=== PATIENT | female | born 1930 | race Caucasian/White ===

== ENCOUNTER 2016-06-12 04:56 | Inpatient (IN) | payer MEDICARE, OTHER ==
[2016-06-12] VITALS (9 sets, daily range): BP systolic 82–126; BP diastolic 50–71; PULSE 77–100; RESP 15–30; TEMP 96.4–103.1; O2SAT 93–98
[~2016-06-12] VITALS: Ht 162.6 cm; Wt 61.6 kg
[~2016-06-12 04:56] MED LIST: AMLO2.5T PO; CALC600T10; FURO1TAB93 PO; KCL10C PO; LEVO.125 PO; LEXA20TA PO; NUED20CA; PRIN10TA PO; STOO100C OR; TRIL300T PO
[2016-06-12] MEDS ORDERED: SODIUM CHLORIDE 0.9% FLUSH 10 ML FLUSH IVF PRN (05:30)
[2016-06-12 05:53] LABS: AUTOMATED NEUTROPHIL # 23.9 TH/MM3 (1.8-7.7); BASOPHIL % 0.1 % (0.0-2.0); HEMATOCRIT 42.6 % (35.0-46.0); LYMPH % 1.9 % (9.0-44.0); LYMPHOCYTE # 0.5 TH/MM3 (1.0-4.8); MEAN CELL VOLUME 94.9 FL (80.0-100.0); MEAN CORPUSCULAR HEMOGLOBIN 32.5 PG (27.0-34.0); MEAN CORPUSCULAR HGB CONC 34.2 % (32.0-36.0); MONO % 4.9 % (0.0-8.0); NEUT % 93.1 % (16.0-70.0); PLATELET COUNT 231 TH/MM3 (150-450); RED BLOOD COUNT 4.49 MIL/MM3 (4.00-5.30); RED CELL DISTRIBUTION WIDTH 14.2 % (11.6-17.2); WHITE BLOOD COUNT 25.7 TH/MM3 (4.0-11.0)
--- NOTE | 2016-06-12 06:01 | RADRPT ---
EXAM DATE/TIME: 06/12/2016 05:25 [place] COMPARISON: CHEST SINGLE AP, March 31, 2013, 16:12. INDICATIONS : Shortness of breath. MEDICAL HISTORY : Unobtainable. SURGICAL HISTORY : Unobtainable. ENCOUNTER: Initial ACUITY: 1 day PAIN SCORE: Non-responsive. LOCATION: Bilateral chest FINDINGS: Rotated and underinflated AP view of the chest demonstrates a normal-sized cardiac silhouette. The pa tient's chin obscures the left lung apex. No effusion, consolidation, or pneumothorax is visualized. Bones demonstrate no acute finding. CONCLUSION: Underinflated and rotated examination without an acute finding appreciated. Flavio Boyd MD on June 12, 2016 at 5:59 Board Certified Radiologist. This report was verified electronically.
[2016-06-12 06:02] LABS: HEMO FLAGS AUTO DIFF
[2016-06-12] MEDS ORDERED: ACET1CAP18 PO (06:05)
[2016-06-12] MEDS ORDERED: HYDR1CRE28 RECTAL (06:05)
[2016-06-12] MEDS ORDERED: COLA100C3 PO (06:05)
[2016-06-12] MEDS ORDERED: FLEEENE3 RECTAL (06:05)
[2016-06-12] MEDS ORDERED: MILKSUS PO (06:05)
[2016-06-12] MEDS ORDERED: ZOFR4TAB PO (06:05)
[2016-06-12] MEDS ORDERED: DULC10SU3 RECTAL (06:05)
[2016-06-12] MEDS ORDERED: CALCTAB19 PO (06:05)
[2016-06-12] MEDS ORDERED: PROM1SUP7 RECTAL (06:05)
[2016-06-12] MEDS ORDERED: AMMO12LO TOPICAL (06:05)
[2016-06-12] MEDS ORDERED: SERO25TA PO (06:05)
[2016-06-12] MEDS ORDERED: PRED20 PO (06:05)
[2016-06-12] MEDS ORDERED: ALBU0.08 NEB (06:05)
[2016-06-12] MEDS ORDERED: ONDA4SOL PO (06:05)
[2016-06-12] MEDS ORDERED: MULTTAB67 PO (06:05)
[2016-06-12] MEDS ORDERED: LEVO100T5 PO (06:05)
[2016-06-12] MEDS ORDERED: OXCA300T PO (06:05)
[2016-06-12 06:10] LABS: BACTERIA, URINE OCC /hpf; BLOOD, URINE MOD (NEG); COMMENT (UR) CATH-CULTURE IND; CULTURE IF INDICATED CATH CULTURE IND; GLUCOSE,URINE NEG (NEG); GRANULAR CAST, URINE 3 /lpf; HYALINE CAST, URINE 4 /lpf (RARE); KETONE, URINE NEG (NEG); MUCUS URINE FEW /lpf (OCC); PH, URINE 6.5 (5.0-8.5); RENAL EPITHELIAL CELLS <1 /hpf; SQUAMOUS EPITHELIAL CELL URINE 1 /hpf (0-5); TRANSITIONAL EPI CELLS, URINE <1 /hpf; URINE COLOR YELLOW (YELLW/STRAW)
[2016-06-12 06:10] LABS: POTASSIUM 3.6 MEQ/L (3.5-5.1)
[2016-06-12 06:12] LABS: NITRITE,URINE POS (NEG)
[2016-06-12] MEDS ORDERED: cefTRIAXone INJ 1,000 MG in SODIUM CHLORIDE 0.9% INJ 100 ML IV ONE (06:30)
[2016-06-12] MEDS ORDERED: ONDANSETRON HCL 4 MG/2 ML VIAL IVP PRN (06:45)
[2016-06-12] MEDS ORDERED: SODIUM CHLORIDE 0.9% FLUSH 10 ML FLUSH IV FLUSH PRN (06:45)
[2016-06-12] MEDS ORDERED: ACETAMINOPHEN 325 MG TAB PO PRN ×2 (06:45→07:45)
[2016-06-12] MEDS ORDERED: SENNOSIDES 8.6 MG TAB PO PRN (06:45)
[2016-06-12] MEDS ORDERED: BISACODYL 10 MG SUPP RECTAL PRN ×2 (06:45→07:45)
[2016-06-12] MEDS ORDERED: NALOXONE HCL 0.4 MG/ML AMP IV PRN (06:45)
[2016-06-12 06:47] LABS: BANDS 10 % (0-6); NEUTROPHIL # MANUAL DIFF 23.9 TH/MM3 (1.8-7.7); PLATELET ESTIMATE SMEAR NORMAL (NORMAL); PLATELET MORPHOLOGY NORMAL (NORMAL); POLYS (SEG NEUTROPHILS) 83 % (16-70); SCAN/DIFF FINAL DIFF MANUAL; WBC DIFF SAMPLE 100
[2016-06-12] MEDS: SODIUM CHLOR 0.9% 1000 ML INJ 1,000 ML IV SCH ×3 (06:49→21:27)
--- NOTE | 2016-06-12 06:50 | PD ---
HPI Chief Complaint: Altered Mental Status Time Seen by Provider: 05:21 Travel History International Travel<30 days: No Contact w/Intl Traveler<30days: No Traveled to known affect area: No History of Present Illness HPI 85-year-old male arrives by EMS. She was difficult to arouse this morning. 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 She then has a morning nap. Lately she is much less active than normal. The daughter states it is been this way for about a week or more. The patient offers no specific complaints and sleeps throughout the interview and examination. There is no suspicion of nonaccidental trauma or accidental trauma. Pt recently started on Gabapentin and daughter questions if it may have induced AMS. PFSH Past Medical History Alzheimer's Disease: Yes Arthritis: Yes Asthma: No Autoimmune Disease: No Blood Disorders: Yes Anxiety: Yes Depression: Yes Heart Rhythm Problems: No Cancer: No Cardiovascular Problems: Yes High Cholesterol: Yes Chemotherapy: No Chest Pain: No Congestive Heart Failure: No COPD: No Cerebrovascular Accident: No Dementia: Yes Diabetes: No Diminished Hearing: No Endocrine: Yes GERD: No Glaucoma: No Genitourinary: Yes (bun creat elevated) Headaches: No Hepatitis: No Hiatal Hernia: No Hypertension: Yes Immune Disorder: No Kidney Stones: No Musculoskeletal: Yes Neurologic: Yes (dementia) Psychiatric: Yes Reproductive: No Respiratory: No Migraines: No Myocardial Infarction: No Radiation Therapy: No Renal Failure: No Seizures: Yes Sickle Cell Disease: No Sleep Apnea: No Thyroid Disease: Yes (HYPOTHYROID) Ulcer: No Influenza Vaccination: Yes PNEUMOCCOCAL Vaccine (Year): 2 Menopausal: Yes Past Surgical History Abdominal Surgery: Yes (APPENDECTOMY) AICD: No Appendectomy: Yes Arteriovenous Shunt: No Cardiac Surgery: Yes (CARDIAC CATH X2) Cholecystectomy: No Ear Surgery: No Endocrine Surgery: Yes (THYROIDECTOMY) Eye Surgery: No Genitourinary Surgery: No Gynecologic Surgery: Yes (HYSTERECTOMY) Hysterectomy: Yes Insulin Pump: No Joint Replacement: Yes (LEFT HIP REPLACEMENT) Oral Surgery: No Pacemaker: No Thoracic Surgery: No Other Surgery: Yes (emilie hip repair thyoidectomy,hemmorroidectomy hysterectomy vein strippingapp) Social History Alcohol Use: No Tobacco Use: No Substance Use: No Allergies-Medications (Allergen,Severity, Reaction): Coded Allergies: Bethanechol (Verified Allergy, Severe, 06/12/16) Cipro (Verified Allergy, Unknown, 06/12/16) TOLD BY JUST[facility] Reported Meds & Prescriptions Reported Meds & Active Scripts Active Reported Zofran (Ondansetron HCl) 4 Mg Tab 4 Mg PO Q6HR PRN Tylenol (Acetaminophen) 325 Mg Cap 650 Mg PO Q4HR PRN Seroquel (Quetiapine Fumarate) 25 Mg Tab 12.5 Mg PO DAILY Seroquel (Quetiapine Fumarate) 25 Mg Tab 25 Mg PO DAILY Prednisone 20 Mg Tab 20 Mg PO DAILY Phenergan Supp (Promethazine HCl) 25 Mg Supp 25 Mg RECTAL Q6H PRN Oxcarbazepine 300 Mg Tab 300 Mg PO BID Ondansetron Liq (Ondansetron HCl) 4 Mg/5 Ml Soln 4 Mg PO Q6H PRN Multiple Vitamin 1 Tab 1 Tab PO DAILY Milk of Magnesia Liq (Magnesium Hydroxide) 400 Mg/5 Ml Susp 15 Ml PO DAILY PRN Levothyroxine (Levothyroxine Sodium) 100 Mcg Tab 100 Mcg PO DAILY Hydrocortisone Acetate Cream 1% Cream 1 Applic RECTAL DIRECTED Fleet Enema Rectal (Sodium Phosphates Rectal) 7-19 Gm/118 Ml Enem 118 Ml RECTAL DAILY PRN Dulcolax Supp (Bisacodyl) 10 Mg Supp 10 Mg RECTAL DAILY PRN Colace (Docusate Sodium) 100 Mg Cap 100 Mg PO BID PRN Calcium 600+D 200 (Calcium Carbonate-Vitamin D) 600-200 Mg-Unit Tab 1 Tab PO BID Ammonium Lactate (Lactic Acid (Ammonium Lactate)) 12% Lotn 1 Applic TOPICAL BID Albuterol Neb (Albuterol Sulfate) 2.5 Mg/3 Ml Neb 2.5 Mg NEB Q6HR PRN Review of Systems Except as stated in HPI: all other systems reviewed are Neg Physical Exam Narrative GENERAL: 85 yo female somewhat thin no acute distress resting comfortably though difficult to arouse SKIN: Focused skin assessment warm/dry. HEAD: Atraumatic. Normocephalic. EYES: Pupils equal and round. No scleral icterus. No injection or drainage. ENT: No nasal bleeding or discharge. Mucous membranes pink and moist. NECK: Trachea midline. No JVD. CARDIOVASCULAR: Regular rate and rhythm. No murmur appreciated. RESPIRATORY: No accessory muscle use. Clear to auscultation. Breath sounds equal bilaterally. GASTROINTESTINAL: Abdomen soft, non-tender, nondistended. Hepatic and splenic margins not palpable. MUSCULOSKELETAL: No obvious deformities. No clubbing. No cyanosis. No edema. NEUROLOGICAL: Asleep. Somewhat difficult to arouse. Pupils are equal round and reactive. There is grimace in response to noxious stimulus. PSYCHIATRIC: Unable to stay. Data Data Last Documented VS Vital Signs Date Time Temp Pulse Resp B/P Pulse Ox O2 Delivery O2 Flow Rate FiO2 06/12/16 05:53 91 20 107/71 98 Nasal Cannula 2 06/12/16 05:14 98.7 Vital signs reviewed Orders Basic Metabolic Panel (Bmp) (06/12/16 05:21) Complete Blood Count With Diff (06/12/16 05:21) Urinalysis - C+S If Indicated (06/12/16 05:21) Chest, Single Ap (06/12/16 05:21) Blood Glucose (06/12/16 05:21) Ecg Monitoring (06/12/16 05:21) Iv Access Insert/Monitor (06/12/16 05:21) Oximetry (06/12/16 05:21) Sodium Chloride 0.9% Flush (Ns Flush) (06/12/16 05:30) Urine Culture (06/12/16 05:45) Ceftriaxone Inj (Rocephin Inj) (06/12/16 06:30) Admit To Inpatient (06/12/16 ) Vital Signs (Adult) Q4H (06/12/16 06:35) Activity Oob With Assistance (06/12/16 06:35) Diet Heart Healthy (06/12/16 Breakfast) Sodium Chlor 0.9% 1000 Ml Inj (Ns 1000 M (06/12/16 06:35) Sodium Chloride 0.9% Flush (Ns Flush) (06/12/16 06:45) Sodium Chloride 0.9% Flush (Ns Flush) (06/12/16 09:00) Acetaminophen (Tylenol) (06/12/16 06:45) Ondansetron Inj (Zofran Inj) (06/12/16 06:45) Bisacodyl Supp (Dulcolax Supp) (06/12/16 06:45) Sennosides (Senokot) (06/12/16 06:45) Basic Metabolic Panel (Bmp) (06/13/16 06:00) Complete Blood Count With Diff (06/13/16 06:00) Heparin Inj (Heparin Inj) (06/12/16 06:45) Naloxone Inj (Narcan Inj) (06/12/16 06:45) Inpatient Certification (06/12/16 ) Ceftriaxone Inj (Rocephin Inj) (06/13/16 06:00) Admit Order (Ed Use Only) (06/12/16 06:40) Labs Laboratory Tests Test 06/12/16 06/12/16 05:30 05:45 White Blood Count 25.7 TH/MM3 Red Blood Count 4.49 MIL/MM3 Hemoglobin 14.6 GM/DL Hematocrit 42.6 % Mean Corpuscular Volume 94.9 FL Mean Corpuscular Hemoglobin 32.5 PG Mean Corpuscular Hemoglobin 34.2 % Concent Red Cell Distribution Width 14.2 % Platelet Count 231 TH/MM3 Mean Platelet Volume 9.0 FL Neutrophils (%) (Auto) 93.1 % Lymphocytes (%) (Auto) 1.9 % Monocytes (%) (Auto) 4.9 % Eosinophils (%) (Auto) 0.0 % Basophils (%) (Auto) 0.1 % Neutrophils # (Auto) 23.9 TH/MM3 Lymphocytes # (Auto) 0.5 TH/MM3 Monocytes # (Auto) 1.2 TH/MM3 Eosinophils # (Auto) 0.0 TH/MM3 Basophils # (Auto) 0.0 TH/MM3 CBC Comment AUTO DIFF Differential Total Cells 100 Counted Neutrophils % (Manual) 83 % Band Neutrophils % 10 % Lymphocytes % 4 % Monocytes % 3 % Neutrophils # (Manual) 23.9 TH/MM3 Differential Comment FINAL DIFF MANUAL Platelet Estimate NORMAL Platelet Morphology Comment NORMAL Red Cell Morphology Comment NORMAL Sodium Level 145 MEQ/L Potassium Level 3.6 MEQ/L Chloride Level 109 MEQ/L Carbon Dioxide Level 24.0 MEQ/L Anion Gap 12 MEQ/L Blood Urea Nitrogen 33 MG/DL Creatinine 2.27 MG/DL Estimat Glomerular Filtration 20 ML/MIN Rate Random Glucose 193 MG/DL Calcium Level 8.6 MG/DL Urine Color YELLOW Urine Turbidity HAZY Urine pH 6.5 Urine Specific [place] 1.017 Urine Protein 100 mg/dL Urine Glucose (UA) NEG mg/dL Urine Ketones NEG mg/dL Urine Occult Blood MOD Urine Nitrite POS Urine Bilirubin NEG Urine Urobilinogen LESS THAN 2.0 MG/DL Urine Leukocyte Esterase LARGE Urine RBC 16 /hpf Urine WBC 77 /hpf Urine WBC Clumps FEW Urine Squamous Epithelial 1 /hpf Cells Urine Transitional Epithelial <1 /hpf Cells Urine Renal Epithelial Cells <1 /hpf Urine Bacteria OCC /hpf Urine Hyaline Casts 4 /lpf Urine Granular Casts 3 /lpf Urine Mucus FEW /lpf Microscopic Urinalysis Comment CATH-CULTURE IND MDM Medical Decision Making Medical Screen Exam Complete: Yes Emergency Medical Condition: Yes Medical Record Reviewed: Yes Differential Diagnosis DEAN, UTI, anemia, sepsis, PNA Narrative Course CBC & BMP Diagram 06/12/16 05:30 UA: UTI present Patient has remained comfortable throughout ER stay. Patient was mildly tachycardic with a heart rate in the 90s throughout ER stay with vital signs otherwise unremarkable. Rocephin started. VSS in ER. D/w Flavio Hanna. Admit to Dr Braxton. Diagnosis Primary Impression: Sepsis secondary to UTI Additional Impression: Acute renal failure Qualified Code: N17.9 - Acute renal failure, unspecified acute renal failure type Admitting Information Admitting Physician Requests: Admit Jesús Rahman MD Jun 12, 2016 06:50
[2016-06-12] MEDS: HEPARIN SODIUM - SQ 10,000 UNITS/ML VIAL SQ SCH ×2 (06:54→18:41)
[2016-06-12] MEDS ORDERED: DOCUSATE SODIUM 100 MG CAP PO PRN (07:45)
[2016-06-12] MEDS ORDERED: PROMETHAZINE HCL 25 MG SUPP RECTAL PRN (07:45)
[2016-06-12] MEDS ORDERED: SOD PHOSPHATE/SOD BIPHOSPHATE (ADULT) ENEMA 133ML RECTAL PRN (07:45)
[2016-06-12] MEDS ORDERED: HYDROCORTISONE ACETATE 25 MG SUPP RECTAL SCH (07:45)
[2016-06-12] MEDS ORDERED: RESP: ALBUTEROL 2.5 MG/3 ML NEB (PRN) NEB (07:45)
[2016-06-12] MEDS ORDERED: MAGNESIUM HYDROXIDE SUSP 30 ML CUP PO PRN (07:45)
[2016-06-12] MEDS: CALCIUM/VITAMIN D 250 MG/125 U TAB PO SCH ×3 (09:00→21:00)
[2016-06-12] MEDS: LEVOTHYROXINE SODIUM 100 MCG TAB PO SCH ×2 (09:00→12:31)
[2016-06-12] MEDS: QUEtiapine FUMARATE 25 MG TAB PO SCH ×4 (09:00→12:29)
[2016-06-12] MEDS: SODIUM CHLORIDE 0.9% FLUSH 10 ML FLUSH IV FLUSH SCH ×2 (09:00→21:00)
[2016-06-12] MEDS: predniSONE 20 MG TAB PO SCH ×2 (09:00→12:30)
[2016-06-12] MEDS: OXcarbazepine 300 MG TAB PO SCH ×3 (09:00→21:00)
--- NOTE | 2016-06-12 09:17 | MH ---
cc: ISABELVIELKAFILOMENA DATE OF ADMISSION 06/12/2016 DATE OF 1930 CHIEF COMPLAINT Altered mental status TRAVEL IN THE LAST 30 DAYS None HISTORY OF PRESENT ILLNESS This is an 85 year-old white female who was brought in via the emergency room from [facility]. According to the record and her daughter, Zaida Oseguera who is with her, the patient has been less responsive and to the point of some lethargy. In this past week, the patient was treated with some IV fluids at the facility, but according to the daughter, the patient's UA that was checked at the facility was normal. The patient also was treated for a recent right eye infection. Usually according to the daughter, the patient is up in her wheelchair ready to eat breakfast and stays on a fairly active routine. She has been off her activity and usual routine for at least a week or more. The patient is currently lying on a stretcher, eyes are closed. She appears to be sleeping and very weak. According to the record, there is no suspicion of trauma or accidents. Currently the patient is DNR. Those records are being faxed over to the facility. The POA is her daughter, Zaida Oseguera, who is currently at her side. PAST MEDICAL HISTORY Includes: 1. Alzheimer's 2. Arthritis 3. Anxiety/depression 4. Some blood disorders 5. Cardiovascular disease 6. Hyperlipidemia 7. Chronic kidney disease 8. Hypertension 9. Dementia 10. Hypothyroid PAST SURGICAL HISTORY 1. Appendectomy 2. Cardiac cath 3. Thyroidectomy 4. Hysterectomy 5. Left hip replacement 6. Vein stripping 7. Hemorrhoidectomy 8. It looks like she has had bilateral hip repairs, left and right. ALLERGIES CIPRO, BETHANECHOL REPORTED MEDICATIONS 1. Zofran 2. Tylenol 3. Seroquel 4. Prednisone 5. Phenergan 6. Oxcarbazepine 7. Multivitamins 8. Milk of Magnesia 9. Levothyroxine 10. Hydrocortisone cream 11. Fleet's enemas 12. Colace 13. Dulcolax 14. Calcium 15. Ammonia 16. Lactate lotion 17. Albuterol nebulizers REVIEW OF SYSTEMS Unable to assess secondary to the patient's altered mental status. SOCIAL HISTORY No current usage of tobacco, alcohol or illicit drugs. The patient does live in the SNF at [facility]. PHYSICAL EXAM VITAL SIGNS: Temperature 98.7, pulse 96, respirations 18, blood pressure 126/67, O2 sat 98 currently on two liters nasal cannula. GENERAL: This is a thin, frail, chronically ill appearing white female resting in the bed eyes closed, appears comfortable and withdrawn. SKIN: Pale, but warm and dry. HEAD, EYES, EARS, NOSE, AND THROAT: Atraumatic, normocephalic. Pupils are 2 mm, unable to open her mouth, refused. Trachea is midline. CARDIOVASCULAR: S1 and S2, regular rate and rhythm. No murmurs, rubs or gallops appreciated. RESPIRATORY: Low volumes, no rhonchi. Essentially clear to auscultation bilateral. GI: Abdomen is soft, flat, nontender and nondistended MUSCULOSKELETAL: No obvious deformities. No edema. Random movement noted on the left upper extremity, otherwise unable to assess. NEUROLOGIC: Somnolent, lethargic. PSYCHIATRIC: Calm, flat affect for now. DIAGNOSTIC DATA WBC count 25.7, RBC 4.49, hemoglobin 14.6, hematocrit 42.6, abnormal neutrophil auto percent 93.1, lymphocytes 1.9. Chemistry sodium 145, potassium 3.6, chloride 109, carbon dioxide 24, amnion gap 12, BUN 33, creatinine 2.27, GFR 20, random glucose 193, calcium 8.6. Urine is yellow and hazy. The pH is 6.5, specific gravity 1.017, positive for protein 100+, moderate amount of occult blood, nitrites are positive, large amount of leukocyte esterase. Clumps of WBC's, multiple RBC's and WBC's, occasional bacteria, positive for mucous, hyalin casts and granular casts. Culture is indicated. Chest x-ray under-inflated and rotated exam without any acute findings appreciated. ASSESSMENT AND PLAN 1. Early urosepsis 2. Chronic kidney disease with acute kidney injury. 3. History of constipation. 4. Leukocytosis 5. Hyperglycemia without diagnostic diabetes mellitus. 6. Alzheimer's disease with dementia 7. Anxiety/depression 8. Altered mental status 9. Hypothyroidism PLAN Our plan is: 1. Admit 2. Monitor her vital signs 3. ECG monitoring 4. IV access 5. Gently hydration with IV fluids 6. In the emergency room, the patient was give Rocephin IV. 7. DVT prophylaxis with heparin. 8. We will monitor her labs which will include re-drawing lab in the morning due to her high white count. 9. Heart healthy diet has been ordered. We will assess her swallow and alertness before feeding her. 10. Medications have been reconciled. 11. Bowel regimen will be initiated daily and monitored due to her history. 12. Current the patient is DNR status. Paperwork has been faxed over from [facility]. POA is daughter, Zaida Oseguera, who agrees with the plan. The patient will receive full active treatment except for her DNR status. 13. We will monitor patient's urinary status. She may require a Bingham catheter for accurate intake and output. 14. Currently the patient is resting in the bed. She can be out of bed if warranted and only with assistance. 15. We will continue to follow. Dictated by: KIRSTIN Ellington Filomena Braxton MD JP/BHAVYA /8:27 AM /8:54 AM Patient seen and examined as above Chart reviewed Medication labs and radiological data reviewed Notes reviewed Plan of care discussed with KIRSTIN Discussed with RN Discussed with patient's daughter at bedside Condition guarded prognosis guarded MTDD
[2016-06-12] MEDS: MULTIVITAMIN TAB PO SCH (12:30)
[2016-06-12] MEDS: LACTIC ACID (AMMONIUM LACTATE) 12% LOTION 225 GM BTL TOPICAL SCH ×2 (12:31→21:23)
[2016-06-12] MEDS ORDERED: ACETAMINOPHEN 650 MG SUPP RECTAL PRN (13:15)
[2016-06-12] MEDS: AZITHROMYCIN INJ 500 MG in SODIUM CHLOR 0.9% 250 ML INJ 250 ML IV SCH (13:21)
[2016-06-12] MEDS: CEFEPIME INJ 1,000 MG in SODIUM CHLORIDE 0.9% INJ 100 ML IV SCH ×2 (14:37→21:26)
[2016-06-13] VITALS (10 sets, daily range): BP systolic 74–110; BP diastolic 44–64; PULSE 86–167; RESP 16–20; TEMP 96.5–99.5; O2SAT 91–96
[2016-06-13 05:15] LABS: BLOOD GAS BASE EXCESS -4.8 mmol/L (-2-2); BLOOD GAS HCO3 18 mmol/L (22-26); BLOOD GAS METHEMOGLOBIN 0.7 % (0-2); BLOOD GAS O2 HGB SATURATION 94 % (90-100); BLOOD GAS OXYGEN CONTENT 25.8 Vol % (12.0-20.0); BLOOD GAS PCO2 24 mmHg (38-42); BLOOD GAS PO2 74 mmHg (61-120); BLOOD GAS TOTAL HGB 19.6 G/DL (12.0-16.0); TEMP CORR TO 98.6
[2016-06-13 05:16] LABS: AUTOMATED NEUTROPHIL # 21.8 TH/MM3 (1.8-7.7); BASOPHIL % 0.1 % (0.0-2.0); HEMATOCRIT 36.2 % (35.0-46.0); LYMPH % 3.5 % (9.0-44.0); LYMPHOCYTE # 0.8 TH/MM3 (1.0-4.8); MEAN CELL VOLUME 94.4 FL (80.0-100.0); MEAN CORPUSCULAR HEMOGLOBIN 32.8 PG (27.0-34.0); MEAN CORPUSCULAR HGB CONC 34.7 % (32.0-36.0); MONO % 3.3 % (0.0-8.0); NEUT % 93.1 % (16.0-70.0); PLATELET COUNT 159 TH/MM3 (150-450); RED BLOOD COUNT 3.84 MIL/MM3 (4.00-5.30); RED CELL DISTRIBUTION WIDTH 14.1 % (11.6-17.2); WHITE BLOOD COUNT 23.5 TH/MM3 (4.0-11.0)
[2016-06-13 05:16] LABS: CRITICAL VALUE YES; DRAW SITE RT RADIAL; LITER FLOW 2 L/M; NUMBER OF ARTERIAL PUNCTURES 2; OXYGEN DEVICE NASAL CANNULA; STAT YES; ULNAR PULSE PRESENT
[2016-06-13 05:23] LABS: HEMO FLAGS AUTO DIFF
[2016-06-13 05:39] LABS: BICARBONATE 20.2 MEQ/L (21.0-32.0); POTASSIUM 3.6 MEQ/L (3.5-5.1)
[2016-06-13] MEDS: CEFEPIME INJ 1,000 MG in SODIUM CHLORIDE 0.9% INJ 100 ML IV SCH ×2 (05:46→14:38)
[2016-06-13] MEDS: LEVOTHYROXINE SODIUM 100 MCG TAB PO SCH (05:46)
[2016-06-13] MEDS: HEPARIN SODIUM - SQ 10,000 UNITS/ML VIAL SQ SCH ×2 (05:46→18:28)
[2016-06-13] MEDS ORDERED: cefTRIAXone INJ 1,000 MG in SODIUM CHLORIDE 0.9% INJ 100 ML IV SCH (06:00)
[2016-06-13 07:56] LABS: BANDS 28 % (0-6); NEUTROPHIL # MANUAL DIFF 21.9 TH/MM3 (1.8-7.7); POLYS (SEG NEUTROPHILS) 65 % (16-70); WBC DIFF SAMPLE 100
[2016-06-13 07:57] LABS: PLATELET ESTIMATE SMEAR NORMAL (NORMAL); PLATELET MORPHOLOGY NORMAL (NORMAL); SCAN/DIFF FINAL DIFF MANUAL
[2016-06-13] MEDS: OXcarbazepine 300 MG TAB PO SCH ×2 (08:07→21:01)
[2016-06-13] MEDS: CALCIUM/VITAMIN D 250 MG/125 U TAB PO SCH ×2 (08:07→21:01)
[2016-06-13] MEDS: MULTIVITAMIN TAB PO SCH (08:07)
[2016-06-13] MEDS: SODIUM CHLORIDE 0.9% FLUSH 10 ML FLUSH IV FLUSH SCH ×2 (08:07→20:56)
[2016-06-13] MEDS: predniSONE 20 MG TAB PO SCH (08:07)
[2016-06-13] MEDS: LACTIC ACID (AMMONIUM LACTATE) 12% LOTION 225 GM BTL TOPICAL SCH ×2 (08:08→20:56)
[2016-06-13] MEDS: QUEtiapine FUMARATE 25 MG TAB PO SCH ×2 (08:10)
[2016-06-13] MEDS ORDERED: VANCOMYCIN 1,000 MG/NS 250 ML IV ONE ×2 (10:00)
[2016-06-13] MEDS: SODIUM CHLOR 0.9% 1000 ML INJ 1,000 ML IV SCH ×2 (12:35→18:28)
[2016-06-13] MEDS ORDERED: SODIUM CHLOR 0.9% 250 ML INJ 250 ML IV ONE (12:45)
--- NOTE | 2016-06-13 12:54 | HHI.PR ---
Subjective Subjective Remarks Lethargic non verbal febrile last night, max 103.1 some tachypnea noted hypotensive NGT clamped on IVF urine concentrated, valentina, marginal output family at d, daughter and granddaughter Review of Systems Constitutional Constitutional Remarks unable to do ROS Vitals/Results Intake & Output 06/12/16 06/12/16 06/13/16 15:00 23:00 07:00 Intake Total 1633 ml 808 ml Output Total 0 ml 250 ml Balance 1633 ml 558 ml Intake Oral 0 ml 0 ml IV Total 1633 ml 808 ml Output Urine Total 0 ml 250 ml # Bowel Movements 1 2 Vital Signs Vital Signs Date Time Temp Pulse Resp B/P Pulse Ox O2 Delivery O2 Flow Rate FiO2 06/13/16 10:59 91 Nasal Cannula 2.00 06/13/16 08:00 98.0 88 19 110/63 96 06/13/16 00:00 99.5 95 18 99/55 93 06/12/16 20:00 99.5 77 18 113/69 95 06/12/16 16:00 96.4 95 30 95/53 93 06/12/16 15:00 97.3 100 28 82/50 94 06/12/16 14:21 28 CBC/BMP: 06/13/16 0451 06/13/16 0451 Lab Results Laboratory Tests Test 06/13/16 06/13/16 04:51 05:04 White Blood Count 23.5 TH/MM3 Red Blood Count 3.84 MIL/MM3 Hemoglobin 12.6 GM/DL Hematocrit 36.2 % Mean Corpuscular Volume 94.4 FL Mean Corpuscular Hemoglobin 32.8 PG Mean Corpuscular Hemoglobin 34.7 % Concent Red Cell Distribution Width 14.1 % Platelet Count 159 TH/MM3 Mean Platelet Volume 9.5 FL Neutrophils (%) (Auto) 93.1 % Lymphocytes (%) (Auto) 3.5 % Monocytes (%) (Auto) 3.3 % Eosinophils (%) (Auto) 0.0 % Basophils (%) (Auto) 0.1 % Neutrophils # (Auto) 21.8 TH/MM3 Lymphocytes # (Auto) 0.8 TH/MM3 Monocytes # (Auto) 0.8 TH/MM3 Eosinophils # (Auto) 0.0 TH/MM3 Basophils # (Auto) 0.0 TH/MM3 CBC Comment AUTO DIFF Differential Total Cells 100 Counted Neutrophils % (Manual) 65 % Band Neutrophils % 28 % Lymphocytes % 2 % Monocytes % 5 % Neutrophils # (Manual) 21.9 TH/MM3 Differential Comment FINAL DIFF MANUAL Platelet Estimate NORMAL Platelet Morphology Comment NORMAL Red Cell Morphology Comment NORMAL Sodium Level 149 MEQ/L Potassium Level 3.6 MEQ/L Chloride Level 118 MEQ/L Carbon Dioxide Level 20.2 MEQ/L Anion Gap 11 MEQ/L Blood Urea Nitrogen 50 MG/DL Creatinine 3.36 MG/DL Estimat Glomerular Filtration 13 ML/MIN Rate Random Glucose 131 MG/DL Calcium Level 8.0 MG/DL Ammonia 16 MCMOL/L Blood Gas Puncture Site RT RADIAL Blood Gas Patient Temperature 98.6 Blood Gas HCO3 18 mmol/L Blood Gas Base Excess -4.8 mmol/L Blood Gas Oxygen Saturation 94 % Arterial Blood pH 7.49 Arterial Blood Partial 24 mmHg Pressure CO2 Arterial Blood Partial 74 mmHg Pressure O2 Arterial Blood Oxygen Content 25.8 Vol % Arterial Blood 1.0 % Carboxyhemoglobin Arterial Blood Methemoglobin 0.7 % Blood Gas Hemoglobin 19.6 G/DL Oxygen Delivery Device NASAL CANNULA Blood Gas Liter Flow 2 L/M Microbiology Microbiology 06/12/16 Aerobic Blood Culture - Preliminary, Resulted S. Aureus Mrsa 06/12/16 Anaerobic Blood Culture - Preliminary, Resulted Gram Positive Cocci 06/12/16 Aerobic Blood Culture - Preliminary, Resulted Gram Positive Cocci 06/12/16 Anaerobic Blood Culture - Preliminary, Resulted Gram Positive Cocci Physical Exam General General Appearance: Malnourished Eyes Eye Exam: Pupils Equal Ears & Nose Ears & Nose Exam: Nasal Mucosa [place] Throat Throat Remarks oral mucosa dry Pulmonary Resp Exam: Decreased Bases Cardiology CV Exam: Irregular, Arrhythmia, Tachycardia Gastrointestinal/Abdomen GI Exam: Soft, Bowel Sounds Present, Distended, Bowel Sounds Hypoactive GI Remarks NGT clamped Genitourinary Remarks B[place], valent[place] urine Musculoskeletal MS Exam: Joints Intact, Atrophy Integumentary Skin Exam: Warm Skin Remarks poor turgor Neurologic Neuro Exam: Unresponsive VTE Prophylaxis VTE Prophylaxis Device: SCDs Assessment/Plan Problem List: (1) Sepsis (2) Acute renal failure (3) Dehydration (4) Dementia (5) MRSA (methicillin resistant staph aureus) culture positive (6) Bacteremia (7) Hypotension (8) UTI (urinary tract infection) (9) Hyperglycemia (10) Hypothyroid (11) CKD (chronic kidney disease) Assessment/Plan sepsis, noted hypotensive, dehydrated, tachycardic give NS 250 bolus now, continue NS at 100/hr continue abx noted with MRSA in urine MRSA blood Vanco x 1 given consult ID for evaluated creat inc. today continue IVF BMP in am avoid nephrotoxic agents Keep NPO swallow eval NGT in place dietary consult for tube feeding Lethargic hold Seroquel continue some home meds Heparin for DVT prophylaxis PT/ST ordered DNR status Condition guarded Labs in am D/W pt's family D/W RN D/W Dr. Braxton This pt. was seen by myself and Dr. Braxton, this note is written on his behalf. Problem Qualifiers (1) Sepsis: Qualified Code: A41.02 - Sepsis due to methicillin resistant Staphylococcus aureus (MRSA) (2) Acute renal failure: Qualified Code: N17.9 - Acute renal failure, unspecified acute renal failure type (3) Dementia: Qualified Code: F03.90 - Dementia without behavioral disturbance, unspecified dementia type (4) Hypotension: Qualified Code: I95.9 - Hypotension, unspecified hypotension type (5) UTI (urinary tract infection): Qualified Code: N39.0 - Urinary tract infection without hematuria, site unspecified (6) Hypothyroid: Qualified Code: E03.9 - Hypothyroidism, unspecified type (7) CKD (chronic kidney disease): Qualified Code: N18.9 - CKD (chronic kidney disease), unspecified stage Ibeth Johnson Jun 13, 2016 12:54
[2016-06-13] MEDS ORDERED: Vancomycin Consult Pharmacy 1 EA OTHER SCH (13:15)
[2016-06-13] MEDS: AZITHROMYCIN INJ 500 MG in SODIUM CHLOR 0.9% 250 ML INJ 250 ML IV SCH (13:54)
[2016-06-13] MEDS ORDERED: SODIUM CHLORID 0.9% 500 ML INJ 500 ML IV ONE (15:15)
[2016-06-13] MEDS ORDERED: NOREPINEPHRINE 4 MG/D5W 250 ML IV SCH (22:00)
[2016-06-13] MEDS ORDERED: SODIUM CHLOR 0.45% 1000 ML INJ 1,000 ML IV SCH (22:00)
--- NOTE | 2016-06-13 22:32 | PD.ID.CON ---
History of Present Illness Service ID Consult Requested By DR Live Reason for Consult bacteremia Primary Care Physician Martín Canales M.D. 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 Extreme lethargy progressed to obtundation noted Fever up to 103 on presentation Leukocytosis up to 25 K on presentation Pt was started on broad spectrum abx Her blood clx growing MRSA / MRSA also noted in urine Review of Systems ROS Limitations: Clinical Condition, Altered Mental Status Past Family Social History Allergies: Coded Allergies: Bethanechol (Verified Allergy, Severe, 06/12/16) Cipro (Verified Allergy, Unknown, 06/12/16) TOLD BY JUSTUS IRENE *MDRO Multi-Drug Resistant Organism (Verified Adverse Reaction, Unknown, ) MRSA (urine/blood) - 06/12/16; (blood) - 06/16/16 MRSA PCR Screen POSITIVE - 06/13/16 Past Medical History Alheimer dementia Hypothyroid Hypertension Dyslipidemia Past Surgical History Cardiac catheterization Hysterectomy Thyroidectomy Active Ordered Medications Medications where reviewed in EMR Antibiotics Include: vancomycin CFTX azithro Family History Non-Contributory. Social History No Tobacco. No ETOH. No Illicit Drugs. Physical Exam Vital Signs Vital Signs Date Time Temp Pulse Resp B/P Pulse Ox O2 Delivery O2 Flow Rate FiO2 06/13/16 16:00 96.5 86 20 86/61 96 06/13/16 12:00 98.1 114 18 105/55 93 06/13/16 10:59 91 Nasal Cannula 2.00 06/13/16 08:00 98.0 88 19 110/63 96 06/13/16 00:00 99.5 95 18 99/55 93 Physical Exam CONSTITUTIONAL/GENERAL: This is a frail elderly female patient, in no apparent distress. TUBES/LINES/DRAINS: SKIN: No jaundice, rashes, or lesions.. Skin temperature appropriate. Not diaphoretic. HEAD: Atraumatic. Normocephalic. EYES: Pupils equal and round and reactive. Extraocular motions intact. No scleral icterus. No injection or drainage. Fundi not examined. ENT: Oral mucosae drayish. NECK: Trachea midline. Supple, nontender. CARDIOVASCULAR: Regular rate and rhythm without murmurs, gallops, or rubs. No JVD. Peripheral pulses symmetric. RESPIRATORY/CHEST: Symmetric, unlabored respirations. Clear to auscultation. Breath sounds equal bilaterally. No wheezes, rales, or rhonchi. GASTROINTESTINAL: Abdomen soft, non-tender, nondistended. No hepato-splenomegaly , or palpable masses. No guarding. Bowel sounds present. GENITOURINARY: Without palpable bladder distension. Bingham catheter in place with very cloudy mud colored urine MUSCULOSKELETAL: Extremities without clubbing, cyanosis, or edema. No joint tenderness or effusion noted. No calf tenderness. No mottling or clubbing. LYMPHATICS: No palpable cervical or supraclavicular adenopathy. NEUROLOGICAL: Obtunded. Not responsive or following commands. PSYCHIATRIC: unable to assess Laboratory Laboratory Tests Test 06/13/16 06/13/16 04:51 05:04 White Blood Count 23.5 Red Blood Count 3.84 Hemoglobin 12.6 Hematocrit 36.2 Mean Corpuscular Volume 94.4 Mean Corpuscular Hemoglobin 32.8 Mean Corpuscular Hemoglobin 34.7 Concent Red Cell Distribution Width 14.1 Platelet Count 159 Mean Platelet Volume 9.5 Neutrophils (%) (Auto) 93.1 Lymphocytes (%) (Auto) 3.5 Monocytes (%) (Auto) 3.3 Eosinophils (%) (Auto) 0.0 Basophils (%) (Auto) 0.1 Neutrophils # (Auto) 21.8 Lymphocytes # (Auto) 0.8 Monocytes # (Auto) 0.8 Eosinophils # (Auto) 0.0 Basophils # (Auto) 0.0 CBC Comment AUTO DIFF Differential Total Cells 100 Counted Neutrophils % (Manual) 65 Band Neutrophils % 28 Lymphocytes % 2 Monocytes % 5 Neutrophils # (Manual) 21.9 Differential Comment FINAL DIFF MANUAL Platelet Estimate NORMAL Platelet Morphology Comment NORMAL Red Cell Morphology Comment NORMAL Sodium Level 149 Potassium Level 3.6 Chloride Level 118 Carbon Dioxide Level 20.2 Anion Gap 11 Blood Urea Nitrogen 50 Creatinine 3.36 Estimat Glomerular Filtration 13 Rate Random Glucose 131 Calcium Level 8.0 Ammonia 16 Blood Gas Puncture Site RT RADIAL Blood Gas Patient Temperature 98.6 Blood Gas HCO3 18 Blood Gas Base Excess -4.8 Blood Gas Oxygen Saturation 94 Arterial Blood pH 7.49 Arterial Blood Partial 24 Pressure CO2 Arterial Blood Partial 74 Pressure O2 Arterial Blood Oxygen Content 25.8 Arterial Blood 1.0 Carboxyhemoglobin Arterial Blood Methemoglobin 0.7 Blood Gas Hemoglobin 19.6 Oxygen Delivery Device NASAL CANNULA Blood Gas Liter Flow 2 Date/Time Procedure Status Source Growth 06/13/16 21:32 Aerobic Blood Culture Received Blood Peripheral Pending 06/13/16 21:32 Anaerobic Blood Culture Received Blood Peripheral Pending 06/12/16 13:02 Aerobic Blood Culture - Preliminary Resulted Blood Other Gram Positive Cocci 06/12/16 13:02 Anaerobic Blood Culture - Preliminary Resulted Gram Positive Cocci 06/12/16 05:45 Urine Culture - Preliminary Resulted Urine Catheterized Urine S. Aureus Mrsa Result Diagram: 06/13/16 0451 06/13/16 045 Imaging Last Impressions Chest X-Ray 06/12/16520 Signed Impressions: Service Date/Time: Sunday, June 12, 2016 05:25 - CONCLUSION: Underinflated and rotated examination without an acute finding appreciated. Flavio Boyd MD Assessment and Plan Assessment and Plan High grade MRSA sepsis with inapparent source ? endocarditis Sepsis, probably severe - hypotension - marginal UOP - ARF Mental status change - cont vancomycin - RICHIE rodriguez Discussed Condition With dgtr @ [facility] Colette Gunter MD Jun 13, 2016 22:32
[2016-06-14] VITALS (12 sets, daily range): BP systolic 91–120; BP diastolic 55–85; PULSE 105–169; RESP 18–28; TEMP 97.4–98.3; O2SAT 91–95
--- NOTE | 2016-06-14 | PD.CONS ---
HPI Service Critical Care Medicine Consult Requested By Primary Care Physician Martín Canales M.D. History of Present Illness 85-year-old female who is a resident of a halfway due to advanced dementia was brought by EMS for lethargy and unresponsiveness. She was originally admitted to medical floor however developed low blood pressure and tachycardia and now she is transferred to ICU. Patient is lethargic and unable to provide any history or information is received from the chart and interviewing patient' s daughter. Per daughter's statement the patient was difficult to arouse the morning prior admission. Normally she is quite active and around 4:30 in the morning she is usually rolling around on her wheelchair and ready to eat toast for breakfast. The daughter states it is been this way lethargic and barely arousable for about a week or more. Patient was also recently started on Gabapentin and daughter questions if it may have induced AMS. Review of Systems ROS Unable to obtain due to patient's altered mental status Past Family Social History Allergies: Coded Allergies: Bethanechol (Verified Allergy, Severe, 06/12/16) *MDRO Multi-Drug Resistant Organism (Verified Allergy, Unknown, 06/13/16) MRSA in Urin reported by Microbiology (06/13/2016) MRSA in Blood (06/13/2016) Cipro (Verified Allergy, Unknown, 06/12/16) TOLD BY JUSTUS IRENE Past Medical History Alheimer dementia Hypothyroid Hypertension Dyslipidemia Past Surgical History Cardiac catheterization Hysterectomy Thyroidectomy Reported Medications Reported Meds & Active Scripts Active Reported Zofran (Ondansetron HCl) 4 Mg Tab 4 Mg PO Q6HR PRN Tylenol (Acetaminophen) 325 Mg Cap 650 Mg PO Q4HR PRN Seroquel (Quetiapine Fumarate) 25 Mg Tab 12.5 Mg PO DAILY Seroquel (Quetiapine Fumarate) 25 Mg Tab 25 Mg PO DAILY Prednisone 20 Mg Tab 20 Mg PO DAILY Phenergan Supp (Promethazine HCl) 25 Mg Supp 25 Mg RECTAL Q6H PRN Oxcarbazepine 300 Mg Tab 300 Mg PO BID Ondansetron Liq (Ondansetron HCl) 4 Mg/5 Ml Soln 4 Mg PO Q6H PRN Multiple Vitamin 1 Tab 1 Tab PO DAILY Milk of Magnesia Liq (Magnesium Hydroxide) 400 Mg/5 Ml Susp 15 Ml PO DAILY PRN Levothyroxine (Levothyroxine Sodium) 100 Mcg Tab 100 Mcg PO DAILY Hydrocortisone Acetate Cream 1% Cream 1 Applic RECTAL DIRECTED Fleet Enema Rectal (Sodium Phosphates Rectal) 7-19 Gm/118 Ml Enem 118 Ml RECTAL DAILY PRN Dulcolax Supp (Bisacodyl) 10 Mg Supp 10 Mg RECTAL DAILY PRN Colace (Docusate Sodium) 100 Mg Cap 100 Mg PO BID PRN Calcium 600+D 200 (Calcium Carbonate-Vitamin D) 600-200 Mg-Unit Tab 1 Tab PO BID Ammonium Lactate (Lactic Acid (Ammonium Lactate)) 12% Lotn 1 Applic TOPICAL BID Albuterol Neb (Albuterol Sulfate) 2.5 Mg/3 Ml Neb 2.5 Mg NEB Q6HR PRN Active Ordered Medications Current Medications Medications (Trade) Dose Ordered Sig/Harpreet Route PRN Reason Start Time Stop Time Status Last Admin Dose Admin Sodium Chloride (NS 1000 ml Inj) 1,000 ml @ 100 mls/hr Q10H IV 06/12/16 06:35 06/13/16 18:28 Sodium Chloride (NS Flush) 2 ml UNSCH PRN IV FLUSH FLUSH AFTER USING IV ACCESS 06/12/16 06:45 Sodium Chloride (NS Flush) 2 ml BID IV FLUSH 06/12/16 09:00 Acetaminophen (Tylenol) 650 mg Q4H PRN PO TEMP > 100.4 06/12/16 06:45 Ondansetron HCl (Zofran Inj) 4 mg Q6H PRN IVP NAUSEA OR VOMITING 06/12/16 06:45 Sennosides (Senokot) 17.2 mg Q12H PRN PO CONSTIPATION 06/12/16 06:45 Heparin Sodium (Porcine) (Heparin Inj) 5,000 units Q12H SQ 06/12/16 06:45 06/13/16 18:28 Naloxone HCl (Narcan Inj) 0.4 mg UNSCH PRN IV SEE LABEL COMMENTS 06/12/16 06:45 Acetaminophen (Tylenol) 650 mg Q4HR PRN PO PAIN SCALE 1 TO 10 06/12/16 07:45 Bisacodyl (Dulcolax Supp) 10 mg DAILY PRN RECTAL CONSTIPATION 06/12/16 07:45 Docusate Sodium (Colace) 100 mg BID PRN PO Constipation 06/12/16 07:45 Lactic Acid (Lac-Hydrin 12% Lotion) 1 applic BID TOPICAL 06/12/16 09:00 06/13/16 20:56 Levothyroxine Sodium (Synthroid) 100 mcg DAILY@06 PO 06/12/16 09:00 Magnesium Hydroxide (Milk Of [place] Liq) 15 ml DAILY PRN PO INDIGESTION OR UPSET STOMACH 06/12/16 07:45 Multivitamins (Theragran) 1 tab DAILY PO 06/12/16 09:00 06/13/16 08:07 Oxcarbazepine (Trileptal) 300 mg BID PO 06/12/16 09:00 06/13/16 21:01 Prednisone (Deltasone) 20 mg DAILY PO 06/12/16 09:00 06/13/16 08:07 Promethazine HCl (Phenergan Supp) 25 mg Q6H PRN RECTAL NAUSEA OR VOMITING 06/12/16 07:45 Quetiapine Fumarate (SEROquel) 12.5 mg DAILY PO 06/12/16 09:00 Hold 06/13/16 08:10 Quetiapine Fumarate (SEROquel) 25 mg DAILY PO 06/12/16 09:00 Hold Sodium Biphosphate/ Sodium Phosphate (Fleets Enema (Adult)) 118 ml DAILY PRN RECTAL CONSTIPATION 06/12/16 07:45 Calcium/Vitamin D (Oscal-D 250-125) 500 mg BID PO NS 06/12/16 09:00 06/13/16 21:01 Acetaminophen 650 mg 650 mg Q6H PRN RECTAL TEMP > 100.4 06/12/16 13:15 06/12/16 13:21 Pharmacy Profile Note 0 ml @ 0 mls/hr UNSCH OTHER 06/13/16 13:15 Norepinephrine Bitartrate (Levophed-Dextrose Drip) 250 ml @ 0 mls/hr TITRATE IV 06/13/16 22:00 Miscellaneous Information Patient in critical care unit? Ass... [id number] .XX 06/14/16 00:00 Chlorhexidine Gluconate (Chlorhexidine 2% Cloth) 3 pack DAILY@04 TOPICAL 06/14/16 04:00 06/18/16 04:01 Chlorhexidine Gluconate (Chlorhexidine 2% Cloth) 3 pack UNSCH PRN TOPICAL HYGIENIC CARE 06/14/16 23:45 06/19/16 23:49 Family History Noncontributory Social History Negative 3 Physical Exam Vital Signs Vital Signs Date Time Temp Pulse Resp B/P Pulse Ox O2 Delivery O2 Flow Rate FiO2 06/13/16 23:37 96 Nasal Cannula 2.00 06/13/16 22:55 98.0 167 16 77/61 95 06/13/16 20:00 96.6 131 18 90/64 95 06/13/16 16:00 96.5 86 20 86/61 96 06/13/16 12:00 98.1 114 18 105/55 93 06/13/16 10:59 91 Nasal Cannula 2.00 06/13/16 08:00 98.0 88 19 110/63 96 06/13/16 00:00 99.5 95 18 99/55 93 Physical Exam GENERAL: Elderly woman comfortably sleeping in bed in no acute distress SKIN: Warm and dry. HEAD: Normocephalic. EYES: No scleral icterus. No injection or drainage. NECK: Supple, trachea midline. No JVD or lymphadenopathy. CARDIOVASCULAR: Regular rate and rhythm without murmurs, gallops, or rubs. RESPIRATORY: Breath sounds equal bilaterally. No accessory muscle use. GASTROINTESTINAL: Abdomen soft, non-tender, nondistended. MUSCULOSKELETAL: No cyanosis, or edema. BACK: Nontender without obvious deformity. No CVA tenderness. EXTREMITIES: No clubbing cyanosis or edema Laboratory Laboratory Tests Test 06/13/16 06/13/16 04:51 05:04 White Blood Count 23.5 Red Blood Count 3.84 Hemoglobin 12.6 Hematocrit 36.2 Mean Corpuscular Volume 94.4 Mean Corpuscular Hemoglobin 32.8 Mean Corpuscular Hemoglobin 34.7 Concent Red Cell Distribution Width 14.1 Platelet Count 159 Mean Platelet Volume 9.5 Neutrophils (%) (Auto) 93.1 Lymphocytes (%) (Auto) 3.5 Monocytes (%) (Auto) 3.3 Eosinophils (%) (Auto) 0.0 Basophils (%) (Auto) 0.1 Neutrophils # (Auto) 21.8 Lymphocytes # (Auto) 0.8 Monocytes # (Auto) 0.8 Eosinophils # (Auto) 0.0 Basophils # (Auto) 0.0 CBC Comment AUTO DIFF Differential Total Cells 100 Counted Neutrophils % (Manual) 65 Band Neutrophils % 28 Lymphocytes % 2 Monocytes % 5 Neutrophils # (Manual) 21.9 Differential Comment FINAL DIFF MANUAL Platelet Estimate NORMAL Platelet Morphology Comment NORMAL Red Cell Morphology Comment NORMAL Sodium Level 149 Potassium Level 3.6 Chloride Level 118 Carbon Dioxide Level 20.2 Anion Gap 11 Blood Urea Nitrogen 50 Creatinine 3.36 Estimat Glomerular Filtration 13 Rate Random Glucose 131 Calcium Level 8.0 Ammonia 16 Blood Gas Puncture Site RT RADIAL Blood Gas Patient Temperature 98.6 Blood Gas HCO3 18 Blood Gas Base Excess -4.8 Blood Gas Oxygen Saturation 94 Arterial Blood pH 7.49 Arterial Blood Partial 24 Pressure CO2 Arterial Blood Partial 74 Pressure O2 Arterial Blood Oxygen Content 25.8 Arterial Blood 1.0 Carboxyhemoglobin Arterial Blood Methemoglobin 0.7 Blood Gas Hemoglobin 19.6 Oxygen Delivery Device NASAL CANNULA Blood Gas Liter Flow 2 Date/Time Procedure Status Source Growth 06/13/16 21:32 Aerobic Blood Culture Received Blood Peripheral Pending 06/13/16 21:32 Anaerobic Blood Culture Received Blood Peripheral Pending 06/12/16 13:02 Aerobic Blood Culture - Preliminary Resulted Blood Other Gram Positive Cocci 06/12/16 13:02 Anaerobic Blood Culture - Preliminary Resulted Gram Positive Cocci 06/12/16 05:45 Urine Culture - Preliminary Resulted Urine Catheterized Urine S. Aureus Mrsa Result Diagram: 06/13/16 0451 06/13/16 0451 Assessment and Plan Assessment and Plan Altered mental status - Advanced Alzheimer dementia - Metabolic toxic - Possibly gabapentin effect - Neuro checks per unit protocol - No improvement will check an MRI of brain Hypothyroidism - Synthroid MRSA UTI and leukocytosis - Antibiotics per ID Dr. Gunter Tachycardia - Volume depleted - Aggressive IV fluids resuscitation - Cardioversion was discussed with patient's daughter who agrees to proceed if necessary DVT GI prophylaxis - Teds SCDs and subcutaneous heparin and Pepcid Donn Oliver MD Jun 14, 2016 00:00
[2016-06-14] MEDS ORDERED: MIDAZOLAM HCL 5 MG/ML VIAL (1 ML) ONE (02:06)
[2016-06-14] MEDS: CHLORHEXIDINE GLUCONATE 2 % 1 PACK (2 CLOTHS)(taper/protocol) TOPICAL SCH (04:00)
--- NOTE | 2016-06-14 05:20 | MB ---
cc: CHIQUIS MAX MD DATE OF CONSULTATION: 06/13/2016 REASON FOR CONSULTATION: Elevated BUN and creatinine for evaluation. HISTORY OF PRESENT ILLNESS This is an 85-year-old female with past medical history of Alzheimer's disease, history of hypertension, hyperlipidemia, underlying dementia, hypothyroidism, chronic kidney disease, anxiety and depression who was brought to the hospital because of altered mental status. I was called to see the patient because of elevated BUN and creatinine. The patient has history of chronic kidney disease and her baseline creatinine has been in the range of 1.1 to 1.3 and this was in 2013 and 2014, and now she came in with a creatinine of 2.2 and it has gone up to 3.3. According to the daughter who is there in the room, who gave most of the history, the patient has no known history of renal disease. The patient was found to be minimally response and she has been no code. When I saw her she was about to be transferred to the [facility]. The patient developed hypotension and her blood pressure has been on the lower side. She has not been talking for the last week or so according to the daughter and her mental status has been gradually getting worse. The patient has been getting IV fluids and is now being transferred to the Intensive Care Unit to start pressors because her blood pressure has been quite low. She is not able to take anything by mouth. PAST MEDICAL HISTORY: 1. Anxiety and depression. 2. Hypertension. 3. Hyperlipidemia. 4. Chronic kidney disease. 5. Dementia. 6. Hypothyroidism. PAST SURGICAL HISTORY: 1. Appendicectomy 2. Cardiac catheterization 3. Thyroidectomy 4. Hysterectomy 5. Left hip replacement REVIEW OF SYSTEMS: Cannot be taken since the patient is not responding and not answering. SOCIAL HISTORY: The patient lives at a nursing facility. There is no history of smoking. FAMILY HISTORY: Noncontributory. ALLERGIES BETHANECHOL AND CIPROFLOXACIN MEDICATIONS 1. Normal saline 100 an hour 2. Trileptal 300 milligrams b.i.d. 3. Os-Eamon 500 milligrams b.i.d. 4. Theragran one tablet daily. 5. Prednisone 20 milligrams once daily. 6. Levothyroxine 100 micrograms daily. 7. Hydrocortisone 25 mg 8. Heparin 5000 units subcu q. 12 hours. 9. Norepinephrine as per protocol. 10. Tylenol. 11. Zofran as needed. 12. Narcan as needed. PHYSICAL EXAMINATION: The patient is nonverbal and not respondng. VITAL SIGNS: Her last blood pressure was 77/61, temperature 98, oxygen saturation 95%. HEENT: Pupils are restricted. Nonicteric sclerae. Conjunctivae pale. Neck: Supple. JVD is not elevated. Lungs: The patient has bilateral decreased air entry with occasional wheezing. Heart: S1-S2 regular. Abdomen: Soft, lax. No tenderness. Extremities: There is no pedal edema. LABORATORY DATA: WBC count is 23.5, hemoglobin 12.6, platelet count 159, neutrophils 93.1, sodium 149, potassium 3.6, chloride 118, bicarb 20, BUN 50, creatinine 3.3. Calcium is 8.0. Ammonia is 16. BNP was 81. Urinalysis showing protein of 100, large leukocyte esterase, RBC 16, WBC 77, urine cultures are pending. Blood cultures reveal gram-positive cocci. IMAGING STUDIES Chest x-ray done on admission which no shows definite infiltrate. ASSESSMENT/PLAN 1. Acute kidney injury 2. Hypotension and shock status. 3. Altered mental status. 4. Sepsis. 5. Urinary tract infection. The patient is now transferred to the intensive care unit and she will be given IV fluids and antibiotics. Urine output has been quite minimal. Patient has kidney injury most likely because of ATN due to hypotension or infection. At present her urine output is low. I agree with continuing the IV fluids and follow the urine output, the BUN and creatinine. If there is no improvement, the patient possibly will need dialysis. I spoke with the daughter who is present. She is considering possibly no dialysis, and at this point there is no urgent need for dialysis, so we will wait and discuss with the family if needed. Thank you for the consultation. Avoid any nephrotoxins. I will follow the patient while she is in the hospital. MD NAYELY Farmer/HEAVEN /11:32 PM /3:45 AM
[2016-06-14 05:33] LABS: HEMATOCRIT 34.7 % (35.0-46.0); PLATELET COUNT 161 TH/MM3 (150-450); RED BLOOD COUNT 3.58 MIL/MM3 (4.00-5.30); RED CELL DISTRIBUTION WIDTH 14.8 % (11.6-17.2); REVIEW FLAG FINAL; WHITE BLOOD COUNT 27.7 TH/MM3 (4.0-11.0)
[2016-06-14] MEDS: LEVOTHYROXINE SODIUM 100 MCG TAB PO SCH (06:03)
[2016-06-14] MEDS: HEPARIN SODIUM - SQ 10,000 UNITS/ML VIAL SQ SCH ×2 (06:04→18:36)
[2016-06-14 06:27] LABS: BICARBONATE 15.6 MEQ/L (21.0-32.0); MAGNESIUM 2.3 MG/DL (1.5-2.5); POTASSIUM 3.5 MEQ/L (3.5-5.1)
[2016-06-14 06:53] LABS: CALCIUM-PROTEIN CORRECTED 8.3 MG/DL (8.5-10.1)
[2016-06-14] MEDS: SODIUM CHLOR 0.9% 1000 ML INJ 1,000 ML IV SCH ×2 (08:35→18:35)
[2016-06-14] MEDS: LACTIC ACID (AMMONIUM LACTATE) 12% LOTION 225 GM BTL TOPICAL SCH ×2 (09:00→21:00)
[2016-06-14] MEDS: MULTIVITAMIN TAB PO SCH (09:10)
[2016-06-14] MEDS: SODIUM CHLORIDE 0.9% FLUSH 10 ML FLUSH IV FLUSH SCH ×2 (09:10→21:38)
[2016-06-14] MEDS: OXcarbazepine 300 MG TAB PO SCH ×2 (09:10→21:38)
[2016-06-14] MEDS: CALCIUM/VITAMIN D 250 MG/125 U TAB PO SCH ×2 (09:10→21:38)
[2016-06-14] MEDS ORDERED: AMIODARONE INJ 450 MG in DEXTROSE 5% IN WATE(EXCEL) INJ 250 ML IV SCH ×2 (09:15)
[2016-06-14] MEDS ORDERED: AMIODARONE INJ 150 MG in DEXTROSE 5% IN WATER 100ML INJ 97 ML IV ONE ×2 (09:15)
[2016-06-14] MEDS: predniSONE 20 MG TAB PO SCH (09:32)
[2016-06-14 10:50] LABS: BACTERIA, URINE RARE /hpf; BLOOD, URINE LARGE (NEG); GLUCOSE,URINE NEG (NEG); KETONE, URINE TRACE mg/dL (NEG); NITRITE,URINE NEG (NEG); PH, URINE 5.5 (5.0-8.5)
[2016-06-14 10:51] LABS: URINE COLOR LIGHT-RED (YELLW/STRAW)
[2016-06-14] MEDS: MAGNESIUM SULFATE 1 GM PREMIX 100 ML IV SCH ×2 (10:59→11:56)
[2016-06-14] MEDS: POTASSIUM CHLOR 20 MEQ PREMIX 100 ML IV SCH ×2 (11:04→11:56)
[2016-06-14 12:08] LABS: BICARBONATE 13.7 MEQ/L (21.0-32.0); POTASSIUM 3.5 MEQ/L (3.5-5.1)
[2016-06-14 12:44] LABS: CALCIUM-PROTEIN CORRECTED 8.3 MG/DL (8.5-10.1)
[2016-06-14] MEDS ORDERED: VANCOMYCIN 1,000 MG/NS 250 ML IV ONE ×2 (13:00)
--- NOTE | 2016-06-14 13:17 | HHI.PR ---
Subjective Subjective Remarks Transferred to intensive care due to hypotension Critical care services consulted Patient now on Levophed Patient tachycardic, heart rate 140s, 150s. Telemetry shows A. fib with RVR On amiodarone drip, receiving magnesium Patient unresponsive, withdrawals to pain, questionable posturing left upper extremity Tachypneic Unable to obtain review of systems Review of Systems Constitutional Constitutional Remarks unable to do ROS Vitals/Results Intake & Output 06/13/16 06/13/16 06/14/16 15:00 23:00 07:00 Intake Total 987 ml 1456 ml 2718 ml Output Total 100 ml 125 ml Balance 887 ml 1456 ml 2593 ml Intake Oral 0 ml 0 ml IV Total 987 ml 1456 ml 2718 ml Output Urine Total 100 ml 125 ml # Bowel Movements 0 1 Vital Signs Vital Signs Date Time Temp Pulse Resp B/P Pulse Ox O2 Delivery O2 Flow Rate FiO2 06/14/16 06:00 159 06/14/16 04:00 169 06/14/16 04:00 98.3 169 28 100/60 93 06/14/16 02:00 169 06/14/16 00:00 159 06/13/16 23:37 96 Nasal Cannula 2.00 06/13/16 22:55 98.0 167 16 77/61 95 06/13/16 22:50 167 06/13/16 21:00 74/44 06/13/16 20:00 96.6 131 18 90/64 95 06/13/16 16:00 96.5 86 20 86/61 96 CBC/BMP: 06/14/16 0415 06/14/16 1040 Lab Results Laboratory Tests Test 06/13/16 06/14/16 06/14/16 06/14/16 22:50 04:15 10:05 10:40 Nasal Screen MRSA (PCR) POSITIVE White Blood Count 27.7 TH/MM3 Red Blood Count 3.58 MIL/MM3 Hemoglobin 11.1 GM/DL Hematocrit 34.7 % Mean Corpuscular Volume 97.0 FL Mean Corpuscular Hemoglobin 31.0 PG Mean Corpuscular Hemoglobin 32.0 % Concent Red Cell Distribution Width 14.8 % Platelet Count 161 TH/MM3 Mean Platelet Volume 10.0 FL Sodium Level 145 MEQ/L 145 MEQ/L Potassium Level 3.5 MEQ/L 3.5 MEQ/L Chloride Level 117 MEQ/L 119 MEQ/L Carbon Dioxide Level 15.6 MEQ/L 13.7 MEQ/L Anion Gap 12 MEQ/L 12 MEQ/L Blood Urea Nitrogen 63 MG/DL 63 MG/DL Creatinine 3.55 MG/DL 3.61 MG/DL Estimat Glomerular Filtration 12 ML/MIN 12 ML/MIN Rate Random Glucose 114 MG/DL 111 MG/DL Calcium Level 7.4 MG/DL 7.4 MG/DL Protein Corrected Calcium 8.3 MG/DL 8.3 MG/DL Magnesium Level 2.3 MG/DL Total Protein 5.5 GM/DL 5.5 GM/DL Urine Color LIGHT-RED Urine Turbidity HAZY Urine pH 5.5 Urine Specific [place] 1.015 Urine Protein 100 mg/dL Urine Glucose (UA) NEG mg/dL Urine Ketones TRACE mg/dL Urine Occult Blood LARGE Urine Nitrite NEG Urine Bilirubin NEG Urine Urobilinogen LESS THAN 2.0 MG/DL Urine Leukocyte Esterase SMALL Urine RBC /hpf Urine WBC /hpf Urine WBC Clumps MANY Urine Bacteria RARE /hpf Urine Eosinophils NONE SEEN /HPF Urine Random Creatinine 83.2 MG/DL Urine Random Sodium 43 MEQ/L Random Vancomycin Level 11.6 COMMENT Microbiology Microbiology 06/13/16 Aerobic Blood Culture - Preliminary, Resulted NO GROWTH IN 1 DAY 06/13/16 Anaerobic Blood Culture - Preliminary, Resulted NO GROWTH IN 1 DAY 06/13/16 Aerobic Blood Culture - Preliminary, Resulted NO GROWTH IN 1 DAY 06/13/16 Anaerobic Blood Culture - Preliminary, Resulted NO GROWTH IN 1 DAY Physical Exam General General Appearance: Malnourished Eyes Eye Remarks Pupils pinpoint, difficult to see any reaction Ears & Nose Ears & Nose Exam: Nasal Mucosa [place] Throat Throat Remarks oral mucosa dry Pulmonary Resp Exam: Rhonchi Cardiology CV Exam: Irregular, Arrhythmia, Tachycardia Gastrointestinal/Abdomen GI Exam: Soft, Bowel Sounds Present, Distended, Bowel Sounds Hypoactive GI Remarks NGT clamped Genitourinary Remarks [place], [place] urine Musculoskeletal MS Exam: Joints Intact, Atrophy Integumentary Skin Exam: Warm Skin Remarks poor turgor Extremeties Extremities Exam: Pedal Pulses Palpable Neurologic Neuro Exam: Unresponsive VTE Prophylaxis VTE Prophylaxis Device: SCDs Assessment/Plan Problem List: (1) Sepsis (2) Acute renal failure (3) Dehydration (4) Dementia (5) MRSA (methicillin resistant staph aureus) culture positive (6) Bacteremia (7) Hypotension (8) UTI (urinary tract infection) (9) Hyperglycemia (10) Hypothyroid (11) CKD (chronic kidney disease) Assessment/Plan Septic shock Required transfer to intensive care 06/13 Critical care has been consulted, their input is appreciated continue with IV fluid resuscitation Continue with Levophed to keep MAP greater than 65 continue abx noted with MRSA in urine MRSA blood ID has been consulted A. fib with RVR overnight Cardioversion was consider, at this time on hold Continue amiodarone 2-D echo pending Patient in acute renal injury, creatinine continues to increase Nephrology has been consulted, their input is appreciated Renal ultrasound has been ordered Urine output is marginal avoid nephrotoxic agents Keep NPO NGT in place dietary consult for tube feeding Patient noted obtunded, slight withdrawal to pain May need CT of the brain rule stroke, now with afib with RVR will d/w attending Heparin for DVT prophylaxis DNR status Labs reviewed, significant leukocytosis Worsening renal function Condition critical D/W RN D/W Dr. Braxton This pt. was seen by myself and Dr. Braxton, this note is written on his behalf. Problem Qualifiers (1) Sepsis: Qualified Code: A41.02 - Sepsis due to methicillin resistant Staphylococcus aureus (MRSA) (2) Acute renal failure: Qualified Code: N17.9 - Acute renal failure, unspecified acute renal failure type (3) Dementia: Qualified Code: F03.90 - Dementia without behavioral disturbance, unspecified dementia type (4) Hypotension: Qualified Code: I95.9 - Hypotension, unspecified hypotension type (5) UTI (urinary tract infection): Qualified Code: N39.0 - Urinary tract infection without hematuria, site unspecified (6) Hypothyroid: Qualified Code: E03.9 - Hypothyroidism, unspecified type (7) CKD (chronic kidney disease): Qualified Code: N18.9 - CKD (chronic kidney disease), unspecified stage Ibeth Johnson Jun 14, 2016 13:17
[2016-06-14] MEDS ORDERED: NOREPINEPHRINE 4 MG/4 ML AMP ONE (13:41)
[2016-06-14] MEDS ORDERED: DILTIAZEM HCL 25 MG/5 ML VIAL IV ONE (14:45)
[2016-06-14] MEDS ORDERED: VANCOMYCIN INJ 500 MG in SODIUM CHLORIDE 0.9% INJ 100 ML IV ONE (14:45)
[2016-06-14] MEDS ORDERED: DILTIAZEM HCL 25 MG/5 ML VIAL IVP ONE (15:30)
[2016-06-14] MEDS ORDERED: DILTIAZEM INJ 125 MG in SODIUM CHLORIDE 0.9% INJ 100 ML IV SCH (15:30)
--- NOTE | 2016-06-14 18:49 | HHI.IDPN ---
Subjective Subjective Remarks pt developped hypotension and was transferred to ICU Pt is started on pressors very obtunded, unresponsive afebrile No UOP On NC O2 Antibiotics vancomycin Allergies: Coded Allergies: Bethanechol (Verified Allergy, Severe, 06/12/16) *MDRO Multi-Drug Resistant Organism (Verified Allergy, Unknown, 06/13/16) MRSA in Urin reported by Microbiology (06/13/2016) MRSA in Blood (06/13/2016) Cipro (Verified Allergy, Unknown, 06/12/16) TOLD BY JUSTUS IRENE Objective . Vital Signs Date Time Temp Pulse Resp B/P Pulse Ox O2 Delivery O2 Flow Rate FiO2 06/14/16 18:00 108 06/14/16 14:00 145 06/14/16 12:00 148 06/14/16 10:00 152 06/14/16 08:00 159 06/14/16 06:00 159 06/14/16 04:00 169 06/14/16 04:00 98.3 169 28 100/60 93 06/14/16 02:00 169 06/14/16 00:00 159 06/13/16 23:37 96 Nasal Cannula 2.00 06/13/16 22:55 98.0 167 16 77/61 95 06/13/16 22:50 167 06/13/16 21:00 74/44 06/13/16 20:00 96.6 131 18 90/64 95 06/13/16 06/13/16 06/14/16 15:00 23:00 07:00 Intake Total 987 ml 1456 ml 2718 ml Output Total 100 ml 125 ml Balance 887 ml 1456 ml 2593 ml Intake Oral 0 ml 0 ml IV Total 987 ml 1456 ml 2718 ml Output Urine Total 100 ml 125 ml # Bowel Movements 0 1 . Laboratory Tests Test 06/13/16 06/14/16 04:51 04:15 White Blood Count 23.5 TH/MM3 27.7 TH/MM3 Red Blood Count 3.84 MIL/MM3 3.58 MIL/MM3 Hemoglobin 12.6 GM/DL 11.1 GM/DL Hematocrit 36.2 % 34.7 % Mean Corpuscular Volume 94.4 FL 97.0 FL Mean Corpuscular Hemoglobin 32.8 PG 31.0 PG Mean Corpuscular Hemoglobin 34.7 % 32.0 % Concent Red Cell Distribution Width 14.1 % 14.8 % Platelet Count 159 TH/MM3 161 TH/MM3 Mean Platelet Volume 9.5 FL 10.0 FL Neutrophils (%) (Auto) 93.1 % Lymphocytes (%) (Auto) 3.5 % Monocytes (%) (Auto) 3.3 % Eosinophils (%) (Auto) 0.0 % Basophils (%) (Auto) 0.1 % Neutrophils # (Auto) 21.8 TH/MM3 Lymphocytes # (Auto) 0.8 TH/MM3 Monocytes # (Auto) 0.8 TH/MM3 Eosinophils # (Auto) 0.0 TH/MM3 Basophils # (Auto) 0.0 TH/MM3 CBC Comment AUTO DIFF Differential Total Cells 100 Counted Neutrophils % (Manual) 65 % Band Neutrophils % 28 % Lymphocytes % 2 % Monocytes % 5 % Neutrophils # (Manual) 21.9 TH/MM3 Differential Comment FINAL DIFF MANUAL Platelet Estimate NORMAL Platelet Morphology Comment NORMAL Red Cell Morphology Comment NORMAL Laboratory Tests Test 06/13/16 06/14/16 06/14/16 04:51 04:15 10:40 Sodium Level 149 MEQ/L 145 MEQ/L 145 MEQ/L Potassium Level 3.6 MEQ/L 3.5 MEQ/L 3.5 MEQ/L Chloride Level 118 MEQ/L 117 MEQ/L 119 MEQ/L Carbon Dioxide Level 20.2 MEQ/L 15.6 MEQ/L 13.7 MEQ/L Anion Gap 11 MEQ/L 12 MEQ/L 12 MEQ/L Blood Urea Nitrogen 50 MG/DL 63 MG/DL 63 MG/DL Creatinine 3.36 MG/DL 3.55 MG/DL 3.61 MG/DL Estimat Glomerular Filtration 13 ML/MIN 12 ML/MIN 12 ML/MIN Rate Random Glucose 131 MG/DL 114 MG/DL 111 MG/DL Calcium Level 8.0 MG/DL 7.4 MG/DL 7.4 MG/DL Ammonia 16 MCMOL/L Protein Corrected Calcium 8.3 MG/DL 8.3 MG/DL Magnesium Level 2.3 MG/DL Total Protein 5.5 GM/DL 5.5 GM/DL Microbiology Date/Time Procedure Status Source Growth 06/12/16 05:45 Urine Culture - Final Complete Urine Catheterized Urine S. Aureus Mrsa 06/12/16 12:52 Aerobic Blood Culture - Preliminary Resulted Blood Peripheral S. Aureus Mrsa 06/12/16 12:52 Anaerobic Blood Culture - Preliminary Resulted S. Aureus Mrsa 06/12/16 13:02 Aerobic Blood Culture - Preliminary Resulted Blood Other S. Aureus Mrsa 06/12/16 13:02 Anaerobic Blood Culture - Preliminary Resulted S. Aureus Mrsa 06/13/16 21:20 Aerobic Blood Culture - Preliminary Resulted Blood Peripheral Gram Positive Cocci 06/13/16 21:20 Anaerobic Blood Culture - Preliminary Resulted Blood Peripheral NO GROWTH IN 1 DAY 06/13/16 21:32 Aerobic Blood Culture - Preliminary Resulted Blood Peripheral Gram Positive Cocci 06/13/16 21:32 Anaerobic Blood Culture - Preliminary Resulted Blood Peripheral NO GROWTH IN 1 DAY Imaging Last Impressions Chest X-Ray 06/12/16 0521 Signed Impressions: Service Date/Time: Sunday, June 12, 2016 05:25 - CONCLUSION: Underinflated and rotated examination without an acute finding appreciated. Flavio Boyd MD Physical Exam CONSTITUTIONAL/GENERAL: This is a frail elderly female patient, in no apparent distress. TUBES/LINES/DRAINS: SKIN: No jaundice, rashes, or lesions.. Skin temperature appropriate. Not diaphoretic. HEAD: Atraumatic. Normocephalic. EYES: Pupils equal and round and reactive. Extraocular motions intact. No scleral icterus. No injection or drainage. Fundi not examined. ENT: Oral mucosae drayish. NECK: Trachea midline. Supple, nontender. CARDIOVASCULAR: Regular rate and rhythm without murmurs, gallops, or rubs. No JVD. Peripheral pulses symmetric. RESPIRATORY/CHEST: Symmetric, unlabored respirations. Few scattered rhonchi. GASTROINTESTINAL: Abdomen soft, non-tender, nondistended. No hepato-splenomegaly , or palpable masses. No guarding. Bowel sounds present. GENITOURINARY: Without palpable bladder distension. Bingham catheter in place with very cloudy mud colored urine MUSCULOSKELETAL: Extremities without clubbing, cyanosis, or edema. No joint tenderness or effusion noted. No calf tenderness. No mottling or clubbing. LYMPHATICS: No palpable cervical or supraclavicular adenopathy. NEUROLOGICAL: Obtunded. Not responsive or following commands. PSYCHIATRIC: unable to assess Assessment & Plan Remarks High grade MRSA sepsis with inapparent source ? endocarditis Sepsis, probably severe - hypotension - marginal UOP - ARF, anuria ? will need HD Mental status change - cont vancomycin dw son at b/s [facility],Colette Goel MD Jun 14, 2016 18:49
--- NOTE | 2016-06-14 20:24 | HHI.NPPN ---
Subjective General Problems: Anemia, Hypotension, Mebatolic Acidosis Renal Failure: Chronic, Acute, Stage III History of Present Illness 85-year-old female with past medical history of Alzheimer's disease, history of hypertension, hyperlipidemia, underlying dementia, hypothyroidism, chronic kidney disease, anxiety and depression who was brought to the hospital because of altered mental status. I was called to see the patient because of elevated BUN and creatinine. The patient has history of chronic kidney disease and her baseline creatinine has been in the range of 1.1 to 1.3 and this was in 2013 and 2014, and now she came in with a creatinine of 2.2. Additional Remarks Patient remain non verbal, not in distress. Review of Systems General General Remarks Cannot be taken. Objective Data Data 06/13/16 06/14/16 19:00 07:00 Intake Total 987 ml 4174 ml Output Total 100 ml 125 ml Balance 887 ml 4049 ml Intake Oral 0 ml 0 ml IV Total 987 ml 4174 ml Output Urine Total 100 ml 125 ml # Bowel Movements 0 1 Vital Signs Date Time Temp Pulse Resp B/P Pulse Ox O2 Delivery O2 Flow Rate FiO2 06/14/16 18:00 108 06/14/16 16:00 98.0 127 24 91/62 91 06/14/16 14:00 145 06/14/16 12:00 148 06/14/16 12:00 97.9 148 23 112/76 93 06/14/16 10:00 152 06/14/16 08:00 159 06/14/16 08:00 97.6 159 18 104/55 95 06/14/16 06:00 159 06/14/16 04:00 169 06/14/16 04:00 98.3 169 28 100/60 93 06/14/16 02:00 169 06/14/16 00:00 159 06/13/16 23:37 96 Nasal Cannula 2.00 06/13/16 22:55 98.0 167 16 77/61 95 06/13/16 22:50 167 06/13/16 21:00 74/44 -: 06/14/16 0415 06/14/16 1040 Microbiology 06/13/16 Aerobic Blood Culture - Preliminary, Resulted Gram Positive Cocci 06/13/16 Anaerobic Blood Culture - Preliminary, Resulted NO GROWTH IN 1 DAY 06/13/16 Aerobic Blood Culture - Preliminary, Resulted Gram Positive Cocci 06/13/16 Anaerobic Blood Culture - Preliminary, Resulted NO GROWTH IN 1 DAY Physical Exam General Appearance: Sleeping, Malnourished Ears & Nose Ears & Nose Exam: Nasal Mucosa [place] Neck Neck Exam: Neck Supple Pulmonary Resp Exam: No Distress, Rhonchi, Decreased Bases, Diminished Breath Sounds Cardiology CV Exam: Irregular, Arrhythmia, Tachycardia Gastrointestinal/Abdomen GI Exam: Soft, Bowel Sounds Present, Distended, Bowel Sounds Hypoactive Musculoskeletal MS Exam: Atrophy Integumentary Skin Exam: Warm Extremeties Extremities Exam: Trace Edema Neurologic Neuro Exam: Unresponsive VTE Prophylaxis Device: SCDs Assessment/Plan Assessment Summary: DEAN/Acute Renal Failure, Dehydration, Hypotension, CKD Stage III Problem List: (1) UTI (urinary tract infection) (2) Hypotension (3) Dementia (4) Bacteremia (5) Hypothyroid (6) Hyperglycemia (7) MRSA (methicillin resistant staph aureus) culture positive (8) CKD (chronic kidney disease) (9) Acute renal failure Plan Patient has low urine out put. BUN/Creatinine almost same. BP is low, and develop RVR, now on Diltiazem. Blood culture growing MRSA. Continue antibiotics and IVF. If no improvement, possible HD. D/W the son at bed side. Problem Qualifiers (1) UTI (urinary tract infection): Qualified Code: N39.0 - Urinary tract infection without hematuria, site unspecified (2) Hypotension: Qualified Code: I95.9 - Hypotension, unspecified hypotension type (3) Dementia: Qualified Code: F03.90 - Dementia without behavioral disturbance, unspecified dementia type (4) Hypothyroid: Qualified Code: E03.9 - Hypothyroidism, unspecified type (5) CKD (chronic kidney disease): Qualified Code: N18.9 - CKD (chronic kidney disease), unspecified stage (6) Acute renal failure: Qualified Code: N17.9 - Acute renal failure, unspecified acute renal failure type Dinora Miller MD Jun 14, 2016 20:24
--- NOTE | 2016-06-14 21:28 | RADRPT ---
EXAM DATE/TIME: 06/14/2016 17:37 [place] COMPARISON: No previous studies available for comparison. INDICATIONS : Increased BUN/creatinine. MEDICAL HISTORY : Hypothyroidism. Alzheimer's. Hypercholesterolemia. Dementia. Seizures. HTN. Renal disease. Arthritis. UTI. Osteoporosis. Depression. Anxiety. SURGICAL HISTORY : Appendectomy. Hysterectomy. Thyroidectomy. Cardiac cath. Left hip replacement. Vein stripping. Hemorr hoidectomy. ENCOUNTER: Initial ACUITY: 1 day PAIN SCORE: Nonresponsive. LOCATION: Bilateral flank MEASUREMENTS: RIGHT KIDNEY: 9.6 x 5.1 x 5.2 cm LEFT KIDNEY: 11.4 x 5.5 x 5.1 cm FINDINGS: Kidneys are very heterogeneous in appearance characteristic of medical renal disease. Trace perinephr ic fluid bilaterally. Bladder mostly decompressed by [place]. No hydronephrosis. CONCLUSION: 1. Heterogeneous kidneys characteristic of medical renal disease with trace perinephric fluid. No hyd ronephrosis. Leonard Berg MD on June 14, 2016 at 21:25 Board Certified Radiologist. This report was verified electronically.
[2016-06-14] MEDS ORDERED: CHLORHEXIDINE GLUCONATE 2 % 1 PACK (2 CLOTHS)(extra cloths) TOPICAL PRN (23:45)
[2016-06-15] VITALS (14 sets, daily range): BP systolic 98–137; BP diastolic 57–67; PULSE 63–100; RESP 20–24; TEMP 97.4–98.6; O2SAT 93–95
[2016-06-15] MEDS: CHLORHEXIDINE GLUCONATE 2 % 1 PACK (2 CLOTHS)(taper/protocol) TOPICAL SCH (04:00)
[2016-06-15] MEDS: LEVOTHYROXINE SODIUM 100 MCG TAB PO SCH (05:16)
[2016-06-15] MEDS: HEPARIN SODIUM - SQ 10,000 UNITS/ML VIAL SQ SCH ×2 (05:16→17:08)
[2016-06-15] MEDS: SODIUM CHLOR 0.9% 1000 ML INJ 1,000 ML IV SCH ×2 (05:16→14:38)
--- NOTE | 2016-06-15 08:05 | HHI.CCPN ---
Subjective Remarks/Hospital Course Hospital Course: 85-year-old female who is a resident of a long term due to advanced dementia was brought by EMS for lethargy and unresponsiveness. She was originally admitted to medical floor however developed low blood pressure and tachycardia and now she is transferred to ICU. Patient is lethargic and unable to provide any history or information is received from the chart and interviewing patient' s daughter. Per daughter's statement the patient was difficult to arouse the morning prior admission. Normally she is quite active and around 4:30 in the morning she is usually rolling around on her wheelchair and ready to eat toast for breakfast. The daughter states it is been this way lethargic and barely arousable for about a week or more. Patient was also recently started on Gabapentin and daughter questions if it may have induced AMS. Subjective: 06/15: clinically improving today. back in sinus rhythm. afebrile. vanc trough therapeutic today. mental status still altered. family wants to consider hospice care. will consult palliative to discuss goals of care, but patient from this acute illness is clinically improving. Objective Vital Signs Date Time Temp Pulse Resp B/P Pulse Ox O2 Delivery O2 Flow Rate FiO2 06/15/16 06:00 63 06/15/16 04:00 97.5 20 98/60 95 06/13/16 23:37 Nasal Cannula 2.00 Intake and Output 06/14/16 06/14/16 06/15/16 08:00 16:00 00:00 Intake Total 2718 ml 1453 ml 1277 ml Output Total 125 ml 100 ml 250 ml Balance 2593 ml 1353 ml 1027 ml Result Diagram: 06/14/16 0415 06/14/16 1040 Objective Remarks GENERAL: Elderly woman comfortably sleeping SKIN: Warm and dry. HEAD: Normocephalic. EYES: No scleral icterus. No injection or drainage. NECK: trachea midline. No JVD CARDIOVASCULAR: Regular rate and rhythm without murmurs, gallops, or rubs. RESPIRATORY: Breath sounds equal bilaterally. No accessory muscle use. GASTROINTESTINAL: Abdomen soft, non-tender, nondistended. MUSCULOSKELETAL: No cyanosis, or edema. BACK: Nontender without obvious deformity. EXTREMITIES: No clubbing cyanosis or edema A/P Assessment and Plan Assessment: 85yF with end-stage dementia and urinary tract infection causing septic shock. clinically she is starting to resolve. we will continue to wean norepinephrine. my preference is to treat her for her uti and stabilize her. If the family wishes based on her chronic disease state to pursue hospice, that may be appropriate. will consult palliative care. Altered mental status - Advanced Alzheimer dementia - Metabolic toxic - Possibly gabapentin effect - Neuro checks per unit protocol Hypothyroidism - Synthroid Septic Shock secondary to urinary tract infection - random vanc level now therapeutic. clinically improving. MRSA UTI. - Dr. uGnter following. - wean levophed as tolerated for map > 65 mmHg. Atrial Fibrillation with rapid ventricular response- resolved. - s/p 24h of amiodarone drip - start amio 200mg po q12h. - d/c cardizem drip DVT GI prophylaxis - Teds SCDs and subcutaneous heparin and Pepcid Mark Ribera MD Jun 15, 2016 08:05
[2016-06-15] MEDS: SODIUM CHLORIDE 0.9% FLUSH 10 ML FLUSH IV FLUSH SCH ×2 (08:53→21:19)
[2016-06-15] MEDS: predniSONE 20 MG TAB PO SCH (08:55)
[2016-06-15] MEDS: AMIODARONE 200 MG TAB PO SCH ×2 (08:55→21:18)
[2016-06-15] MEDS: OXcarbazepine 300 MG TAB PO SCH ×2 (08:56→21:18)
[2016-06-15] MEDS: LACTIC ACID (AMMONIUM LACTATE) 12% LOTION 225 GM BTL TOPICAL SCH ×2 (08:56→21:00)
[2016-06-15] MEDS: CALCIUM/VITAMIN D 250 MG/125 U TAB PO SCH ×2 (08:56→21:18)
[2016-06-15] MEDS: MULTIVITAMIN TAB PO SCH (08:56)
[2016-06-15] MEDS ORDERED: AMIODARONE INJ 200 MG in DEXTROSE 5% IN WATER 100ML INJ 97 ML IV SCH ×2 (09:00)
[2016-06-15 09:11] LABS: HEMATOCRIT 34.6 % (35.0-46.0); MEAN CELL VOLUME 96.5 FL (80.0-100.0); MEAN CORPUSCULAR HEMOGLOBIN 31.5 PG (27.0-34.0); MEAN CORPUSCULAR HGB CONC 32.6 % (32.0-36.0); PLATELET COUNT 159 TH/MM3 (150-450); RED BLOOD COUNT 3.59 MIL/MM3 (4.00-5.30); RED CELL DISTRIBUTION WIDTH 14.8 % (11.6-17.2); REVIEW FLAG FINAL; WHITE BLOOD COUNT 19.5 TH/MM3 (4.0-11.0)
[2016-06-15 09:50] LABS: POTASSIUM 3.9 MEQ/L (3.5-5.1)
--- NOTE | 2016-06-15 11:52 | HHI.PR ---
Subjective Interval History remains unresponsive on Levo in sinus rhythm family at bed side Vitals/Results Intake & Output 06/14/16 06/14/16 06/15/16 15:00 23:00 07:00 Intake Total 1453 ml 1277 ml 458 ml Output Total 100 ml 250 ml 150 ml Balance 1353 ml 1027 ml 308 ml IV Total 1453 ml 1217 ml 455 ml Other 60 ml 3 ml Output Urine Total 100 ml 250 ml 150 ml # Bowel Movements 0 1 Vital Signs Vital Signs Date Time Temp Pulse Resp B/P Pulse Ox O2 Delivery O2 Flow Rate FiO2 06/15/16 09:26 94 Nasal Cannula 4.00 06/15/16 08:00 97.6 65 23 119/62 94 06/15/16 08:00 65 06/15/16 06:00 63 06/15/16 04:00 63 06/15/16 04:00 97.5 63 20 98/60 95 06/15/16 02:00 64 06/15/16 00:00 98.6 100 24 105/57 93 06/15/16 00:00 100 06/14/16 22:00 105 06/14/16 20:00 97.4 115 20 120/85 94 06/14/16 20:00 115 06/14/16 18:00 108 06/14/16 16:00 98.0 127 24 91/62 91 06/14/16 14:00 145 06/14/16 12:00 148 06/14/16 12:00 97.9 148 23 112/76 93 CBC/BMP: 06/15/16 0900 06/15/16 0900 Lab Results Laboratory Tests Test 06/15/16 06/15/16 04:47 09:00 Random Vancomycin Level 24.3 COMMENT White Blood Count 19.5 TH/MM3 Red Blood Count 3.59 MIL/MM3 Hemoglobin 11.3 GM/DL Hematocrit 34.6 % Mean Corpuscular Volume 96.5 FL Mean Corpuscular Hemoglobin 31.5 PG Mean Corpuscular Hemoglobin 32.6 % Concent Red Cell Distribution Width 14.8 % Platelet Count 159 TH/MM3 Mean Platelet Volume 10.1 FL Sodium Level 144 MEQ/L Potassium Level 3.9 MEQ/L Chloride Level 115 MEQ/L Carbon Dioxide Level 14.0 MEQ/L Anion Gap 15 MEQ/L Blood Urea Nitrogen 70 MG/DL Creatinine 3.56 MG/DL Estimat Glomerular Filtration 12 ML/MIN Rate Random Glucose 125 MG/DL Calcium Level 8.1 MG/DL Magnesium Level 3.0 MG/DL Physical Exam General General Appearance: Sleeping, Malnourished Ears & Nose Ears & Nose Exam: Nasal Mucosa [place] Neck Neck Exam: Neck Supple Pulmonary Resp Exam: No Distress, Rhonchi, Decreased Bases, Diminished Breath Sounds Cardiology CV Exam: Irregular, Arrhythmia, Tachycardia Gastrointestinal/Abdomen GI Exam: Soft, Bowel Sounds Present, Distended, Bowel Sounds Hypoactive Musculoskeletal MS Exam: Atrophy Integumentary Skin Exam: Warm Extremeties Extremities Exam: Trace Edema Neurologic Neuro Exam: Unresponsive VTE Prophylaxis VTE Prophylaxis Device: SCDs Assessment/Plan Problem List: (1) Sepsis (2) Acute renal failure (3) Dehydration (4) Dementia (5) MRSA (methicillin resistant staph aureus) culture positive (6) Bacteremia (7) Hypotension (8) UTI (urinary tract infection) (9) Hyperglycemia (10) Hypothyroid (11) CKD (chronic kidney disease) Assessment/Plan Septic shock Required transfer to intensive care 06/13 Critical care has been consulted, their input is appreciated continue with IV fluid resuscitation Continue with Levophed to keep MAP greater than 65 continue abx, Vanco dosing per Pharmacy noted with MRSA in urine MRSA blood ID following ? endocarditis A. fib with RVR overnight Cardioversion was consider, at this time on hold Continue po amiodarone, in sinus rhythm ? anticoag , will give 1 dose of Lovenox 2-D echo pending Patient in acute renal injury, creatinine stable at 3.5 Nephrology has been consulted, their input is appreciated Renal ultrasound has been ordered Urine output is marginal avoid nephrotoxic agents Keep NPO NGT in place dietary consult for tube feeding Patient noted obtunded, slight withdrawal to pain May need CT of the brain rule stroke Heparin for DVT prophylaxis DNR status Labs reviewed, significant leukocytosis Condition critical D/W RN d/w family at bed side Problem Qualifiers (1) Sepsis: Qualified Code: A41.02 - Sepsis due to methicillin resistant Staphylococcus aureus (MRSA) (2) Acute renal failure: Qualified Code: N17.9 - Acute renal failure, unspecified acute renal failure type (3) Dementia: Qualified Code: F03.90 - Dementia without behavioral disturbance, unspecified dementia type (4) Hypotension: Qualified Code: I95.9 - Hypotension, unspecified hypotension type (5) UTI (urinary tract infection): Qualified Code: N39.0 - Urinary tract infection without hematuria, site unspecified (6) Hypothyroid: Qualified Code: E03.9 - Hypothyroidism, unspecified type (7) CKD (chronic kidney disease): Qualified Code: N18.9 - CKD (chronic kidney disease), unspecified stage Jada Sapp MD Jun 15, 2016 11:52
--- NOTE | 2016-06-15 14:23 | PD.CONS ---
Consult Service Palliative Care . Consult Requested By Dr. Ribera . Primary Care Physician Martín Canales M.D. . Reason for Consultation a. To assist with evaluation and management of symptoms including: weakness , confusion, malnutrition. b. To assist medical decision maker(s) with: better understanding of current medical conditions; weighing benefits/burdens of medical treatment options; making medical treatment decisions. . HPI History of Present Illness Ms. Martinez is an 85-year-old female who is a resident of [facility] due to advanced dementia. She was brought to [facility] ER by EMS on 06/12/16 for evaluation decreased level of responsiveness. Notes indicate staff found her difficult to arouse in the morning. She had been less active, sleeping more and eating less. She was originally admitted to medical floor for UTI. Initial evaluation revealed: * WBC 25.7, hemoglobin 14.6, hematocrit 42.6, platelets 231, neutrophils 93.1% * BUN 33, creatinine 2.27, GFR 20, glucose 193 * Urinalysis positive leukocyte esterase, WBC, RBC, bacteria - culture indicated later resulted as MRSA. * Nasal swab positive MRSA * Blood cultures positive MRSA * CXR - underinflated and rotated exam, no acute findings. Admitted with UTI/sepsis. She later developed hypotension and tachycardia requiring transfer to ICU. Her renal function continued to worsen with creatinine rising to 3.61. Nephrology, Dr. Miller was consulted. Renal ultrasound revealed heterogeneous kidneys characteristic of medical renal disease with trace perinephric fluid, no hydronephrosis. Continue medical management, may need HD is worsens. Infectious disease, Dr. Gunter was consulted for UTI/sepsis with continued antibiotic recommendations. Patient remains in ICU on Levophed though weaning down, BP 119/62. Developed A. Fib with RVR (resolved) now in sinus rhythm, on amiodarone. Remains minimally responsive. WBC decreased from 27.7 to 19.5 today. Creatinine relatively stable at 3.56. Palliative care is consulted to assist with further clarification of treatment goals. Met with daughter (Zaida Oseguera) and one son (Oscar). Both have a good understanding of current medical condition, high risk of further decline or even given advanced age, critical illness and underlying dementia. They have already elected NO CODE, they do not want dialysis and do not feel patient would want a feeding tube (they will speak more about feeding tube as a family) . For now, they desire continued aggressive care, though are very open to hospice. They are realistic and hope treatment of UTI would give her some more quality time. Open to hospice if further set backs or decline. They understand she is hospice eligible at this time, are not quite ready to make this decision today. . Function/Cognitive Trajectory Patient has been SNF dependent for about 5 years following bilateral hip replacement within 6 months. She has advanced dementia. She no longer knows her family. She can speak, most sentences/words don't make sense. She is dependent for all care including meals. Bed to WC bound. Eats small amounts. Family reports SNF was going to do speech eval for dysphagia recently, was not done due to this acute hospitalization. . Review of Systems ROS Limitations: Altered Mental Status (minimally reposposive. ) Constitutional: COMPLAINS OF: Weight loss, Change in appetite (decreased, dysphagia. ), Generalized weakness Respiratory: COMPLAINS OF: Sputum production, Shortness of breath Gastrointestinal: COMPLAINS OF: Constipation, Difficulty Swallowing, Anorexia Musculoskeletal: COMPLAINS OF: Joint pain, Decreased range of motion Hematologic/Lymphatics: COMPLAINS OF: Bruising Neurologic: COMPLAINS OF: Poor Balance Psychiatric: COMPLAINS OF: Anxiety, Confusion (dementia), Depression Past Family Social History Coded Allergies: Bethanechol (Verified Allergy, Severe, 06/12/16) Cipro (Verified Allergy, Unknown, 06/12/16) TOLD BY JUSTUS IRENE *MDRO Multi-Drug Resistant Organism (Verified Adverse Reaction, Unknown, ) MRSA (urine/blood) - 06/12/16 MRSA PCR Screen POSITIVE-06/13/16 Past Medical History Alzheimer dementia Hypothyroid Hypertension Dyslipidemia Coronary Artery Disease Anxiety Depression Arthritis Chronic Kidney Disease Constipation . Past Surgical History Cardiac catheterization x 2 Hysterectomy Thyroidectomy Appendectomy Bilateral hip replacements Hemorrhoidectomy Vein stripping . Reported Medications Reported Meds & Active Scripts Active Reported Zofran (Ondansetron HCl) 4 Mg Tab 4 Mg PO Q6HR PRN Tylenol (Acetaminophen) 325 Mg Cap 650 Mg PO Q4HR PRN Seroquel (Quetiapine Fumarate) 25 Mg Tab 12.5 Mg PO DAILY Seroquel (Quetiapine Fumarate) 25 Mg Tab 25 Mg PO DAILY Prednisone 20 Mg Tab 20 Mg PO DAILY Phenergan Supp (Promethazine HCl) 25 Mg Supp 25 Mg RECTAL Q6H PRN Oxcarbazepine 300 Mg Tab 300 Mg PO BID Ondansetron Liq (Ondansetron HCl) 4 Mg/5 Ml Soln 4 Mg PO Q6H PRN Multiple Vitamin 1 Tab 1 Tab PO DAILY Milk of Magnesia Liq (Magnesium Hydroxide) 400 Mg/5 Ml Susp 15 Ml PO DAILY PRN Levothyroxine (Levothyroxine Sodium) 100 Mcg Tab 100 Mcg PO DAILY Hydrocortisone Acetate Cream 1% Cream 1 Applic RECTAL DIRECTED Fleet Enema Rectal (Sodium Phosphates Rectal) 7-19 Gm/118 Ml Enem 118 Ml RECTAL DAILY PRN Dulcolax Supp (Bisacodyl) 10 Mg Supp 10 Mg RECTAL DAILY PRN Colace (Docusate Sodium) 100 Mg Cap 100 Mg PO BID PRN Calcium 600+D 200 (Calcium Carbonate-Vitamin D) 600-200 Mg-Unit Tab 1 Tab PO BID Ammonium Lactate (Lactic Acid (Ammonium Lactate)) 12% Lotn 1 Applic TOPICAL BID Albuterol Neb (Albuterol Sulfate) 2.5 Mg/3 Ml Neb 2.5 Mg NEB Q6HR PRN . Current Medications Medications (Trade) Dose Ordered Sig/Harpreet Route Start Time Stop Time Status Last Admin (NS 1000 ml Inj) 1,000 ml @ 100 mls/hr Q10H IV 06/12/16 06:35 06/15/16 05:16 (NS Flush) 2 ml UNSCH PRN IV FLUSH 06/12/16 06:45 (NS Flush) 2 ml BID IV FLUSH 06/12/16 09:00 06/14/16 21:38 (Tylenol) 650 mg Q4H PRN PO 06/12/16 06:45 (Zofran Inj) 4 mg Q6H PRN IVP 06/12/16 06:45 (Senokot) 17.2 mg Q12H PRN PO 06/12/16 06:45 (Heparin Inj) 5,000 units Q12H SQ 06/12/16 06:45 06/15/16 05:16 (Narcan Inj) 0.4 mg UNSCH PRN IV 06/12/16 06:45 (Tylenol) 650 mg Q4HR PRN PO 06/12/16 07:45 (Dulcolax Supp) 10 mg DAILY PRN RECTAL 06/12/16 07:45 (Colace) 100 mg BID PRN PO 06/12/16 07:45 (Lac-Hydrin 12% Lotion) 1 applic BID TOPICAL 06/12/16 09:00 06/13/16 20:56 (Synthroid) 100 mcg DAILY@06 PO 06/12/16 09:00 06/15/16 05:16 (Milk Of Magnesia Liq) 15 ml DAILY PRN PO 06/12/16 07:45 (Theragran) 1 tab DAILY PO 06/12/16 09:00 06/15/16 08:56 (Trileptal) 300 mg BID PO 06/12/16 09:00 06/15/16 08:56 (Deltasone) 20 mg DAILY PO 06/12/16 09:00 06/15/16 08:55 (Phenergan Supp) 25 mg Q6H PRN RECTAL 06/12/16 07:45 (SEROquel) 12.5 mg DAILY PO 06/12/16 09:00 Hold 06/13/16 08:10 (SEROquel) 25 mg DAILY PO 06/12/16 09:00 Hold (Fleets Enema (Adult)) 118 ml DAILY PRN RECTAL 06/12/16 07:45 (Oscal-D 250-125) 500 mg BID PO 06/12/16 09:00 06/15/16 08:56 Acetaminophen 650 mg 650 mg Q6H PRN RECTAL 06/12/16 13:15 06/12/16 13:21 Pharmacy Profile Note 0 ml @ 0 mls/hr UNSCH OTHER 06/13/16 13:15 (Levophed-Dextrose Drip) 250 ml @ 0 mls/hr TITRATE IV 06/13/16 22:00 Miscellaneous Information Patient in critical care unit? Ass... Q361D .XX 06/14/16 00:00 (Chlorhexidine 2% Cloth) 3 pack DAILY@04 TOPICAL 06/14/16 04:00 06/18/16 04:01 06/14/16 04:00 (Chlorhexidine 2% Cloth) 3 pack UNSCH PRN TOPICAL 06/14/16 23:45 06/19/16 23:49 (Cordarone) 200 mg Q12HR PO 06/15/16 09:00 06/15/16 08:55 . Family History Parents . 4 living children. . Substance Use Tobacco: Former smoker. Alcohol: None. Prescription med abuse:None. Illicits:None. . Psychosocial History . 1 daughter (lives local) and 3 sons (1 son lives in [place], others local) . 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 Resident of [facility] for about 5 years. . Spiritual/Cultural Factors [employer]. . Living Will: Copy in medical record Health Care Surrogate: Copy in medical record Date completed: 09/13/1998 . Health Care Surrogate(s): Designated Health care power of erisa attorney is Zaida hightower. . Documented care wishes: "take into account my preference for a quality of life and my preference that I not continue to live for a prolonged period of time without reasonable prospect of amelioration or recovery time either in a irreversible coma or unconscious state or in a conscious state with severely and irreversibly impaired cognitive faculties, massive paralysis or with severe, uncontrollable pain or suffering , whether physical or psychological..." Today's verbally stated goals: Incapacitated to make her own medical decisions due to dementia and critical illness will not regain capacity. . Family/friends goals: Desires continued aggressive care for now short of NO CODE (DNR/DNI) or dialysis. Considering hospice if no further improvement or if further decline. . Ethical and Legal Issues Living Will and Health Care Power of Sand Screener scanned into EMR and copy on chart. Patient is incapacitated and will not regain capacity. Zaida Hightower is designated HC POA. Physical Exam Vital Signs Date Time Temp Pulse Resp B/P Pulse Ox O2 Delivery O2 Flow Rate FiO2 06/15/16 10:00 66 06/15/16 09:26 94 Nasal Cannula 4.00 06/15/16 08:00 97.6 65 23 119/62 94 06/15/16 08:00 65 06/15/16 06:00 63 06/15/16 04:00 63 06/15/16 04:00 97.5 63 20 98/60 95 06/15/16 02:00 64 06/15/16 00:00 98.6 100 24 105/57 93 06/15/16 00:00 100 06/14/16 22:00 105 06/14/16 20:00 97.4 115 20 120/85 94 06/14/16 20:00 115 06/14/16 18:00 108 06/14/16 16:00 98.0 127 24 91/62 91 06/14/16 14:00 145 06/14/16 06/15/16 19:00 07:00 Intake Total 1453 ml 1735 ml Output Total 100 ml 400 ml Balance 1353 ml 1335 ml IV Total 1453 ml 1672 ml Other 63 ml Output Urine Total 100 ml 400 ml # Bowel Movements 1 Exam CONSTITUTIONAL/GENERAL: This is an elderly, frail female, critically ill in ICU. TUBES/LINES/DRAINS: NG tube, PIVs, Bingham, SCDs. SKIN: No jaundice, rashes, or lesions. Ecchymoses on upper extremities. No wounds seen anteriorly. Skin temperature appropriate. Not diaphoretic. HEAD: Atraumatic. Normocephalic. EYES: Eyes closed. ENT: Unable to assess hearing. NG tube. Mouth closed, lips dry. NECK: Trachea midline. CARDIOVASCULAR: Regular rate and rhythm without murmurs, gallops, or rubs. No JVD. Peripheral pulses symmetric. RESPIRATORY/CHEST: Symmetric, unlabored respirations. Course breath sounds bilaterally. GASTROINTESTINAL: Abdomen soft, non-tender, nondistended. No guarding. Bowel sounds hypoactive. GENITOURINARY: Without palpable bladder distension. Bingham catheter in place. MUSCULOSKELETAL: Extremities without clubbing, cyanosis, or edema. No mottling or clubbing. LYMPHATICS: No palpable cervical or supraclavicular adenopathy. NEUROLOGICAL: Does not awaken to voice or exam. PSYCHIATRIC: Does not awaken to voice or exam. . Diagnostic Tests Laboratory Laboratory Tests Test 06/13/16 06/13/16 06/13/16 06/14/16 04:51 05:04 22:50 04:15 White Blood Count 23.5 TH/MM3 27.7 TH/MM3 (4.0-11.0) (4.0-11.0) Red Blood Count 3.84 MIL/MM3 3.58 MIL/MM3 (4.00-5.30) (4.00-5.30) Hemoglobin 12.6 GM/DL 11.1 GM/DL (11.6-15.3) (11.6-15.3) Hematocrit 36.2 % 34.7 % (35.0-46.0) (35.0-46.0) Mean Corpuscular Volume 94.4 FL 97.0 FL (80.0-100.0) (80.0-100.0) Mean Corpuscular Hemoglobin 32.8 PG 31.0 PG (27.0-34.0) (27.0-34.0) Mean Corpuscular Hemoglobin 34.7 % 32.0 % Concent (32.0-36.0) (32.0-36.0) Red Cell Distribution Width 14.1 % 14.8 % (11.6-17.2) (11.6-17.2) Platelet Count 159 TH/MM3 161 TH/MM3 (150-450) (150-450) Mean Platelet Volume 9.5 FL 10.0 FL (7.0-11.0) (7.0-11.0) Neutrophils (%) (Auto) 93.1 % (16.0-70.0) Lymphocytes (%) (Auto) 3.5 % (9.0-44.0) Monocytes (%) (Auto) 3.3 % (0.0-8.0) Eosinophils (%) (Auto) 0.0 % (0.0-4.0) Basophils (%) (Auto) 0.1 % (0.0-2.0) Neutrophils # (Auto) 21.8 TH/MM3 (1.8-7.7) Lymphocytes # (Auto) 0.8 TH/MM3 (1.0-4.8) Monocytes # (Auto) 0.8 TH/MM3 (0-0.9) Eosinophils # (Auto) 0.0 TH/MM3 (0-0.4) Basophils # (Auto) 0.0 TH/MM3 (0-0.2) CBC Comment AUTO DIFF Differential Total Cells 100 Counted Neutrophils % (Manual) 65 % (16-70) Band Neutrophils % 28 % (0-6) Lymphocytes % 2 % (9-44) Monocytes % 5 % (0-8) Neutrophils # (Manual) 21.9 TH/MM3 (1.8-7.7) Differential Comment FINAL DIFF MANUAL Platelet Estimate NORMAL (NORMAL) Platelet Morphology Comment NORMAL (NORMAL) Red Cell Morphology Comment NORMAL (NORMAL) Sodium Level 149 MEQ/L 145 MEQ/L (136-145) (136-145) Potassium Level 3.6 MEQ/L 3.5 MEQ/L (3.5-5.1) (3.5-5.1) Chloride Level 118 MEQ/L 117 MEQ/L (98-107) (98-107) Carbon Dioxide Level 20.2 MEQ/L 15.6 MEQ/L (21.0-32.0) (21.0-32.0) Anion Gap 11 MEQ/L (5-15) 12 MEQ/L (5-15) Blood Urea Nitrogen 50 MG/DL (7-18) 63 MG/DL (7-18) Creatinine 3.36 MG/DL 3.55 MG/DL (0.50-1.00) (0.50-1.00) Estimat Glomerular Filtration 13 ML/MIN (>89) 12 ML/MIN (>89) Rate Random Glucose 131 MG/DL 114 MG/DL (74-106) (74-106) Calcium Level 8.0 MG/DL 7.4 MG/DL (8.5-10.1) (8.5-10.1) Ammonia 16 MCMOL/L (11-32) Blood Gas Puncture Site RT RADIAL Blood Gas Patient Temperature 98.6 Blood Gas HCO3 18 mmol/L (22-26) Blood Gas Base Excess -4.8 mmol/L (-2-2) Blood Gas Oxygen Saturation 94 % (90-100) Arterial Blood pH 7.49 (7.380-7.420) Arterial Blood Partial 24 mmHg (38-42) Pressure CO2 Arterial Blood Partial 74 mmHg Pressure O2 (61-120) Arterial Blood Oxygen Content 25.8 Vol % (12.0-20.0) Arterial Blood 1.0 % (0-4) Carboxyhemoglobin Arterial Blood Methemoglobin 0.7 % (0-2) Blood Gas Hemoglobin 19.6 G/DL (12.0-16.0) Oxygen Delivery Device NASAL CANNULA Blood Gas Liter Flow 2 L/M Nasal Screen MRSA (PCR) POSITIVE (NEGATIVE) Protein Corrected Calcium 8.3 MG/DL (8.5-10.1) Magnesium Level 2.3 MG/DL (1.5-2.5) Total Protein 5.5 GM/DL (6.4-8.2) Test 06/14/16 06/14/16 06/15/16 06/15/16 10:05 10:40 04:47 09:00 Urine Color LIGHT-RED (YELLW/STRAW) Urine Turbidity HAZY (CLEAR) Urine pH 5.5 (5.0-8.5) Urine Specific [place] 1.015 (1.002-1.035) Urine Protein 100 mg/dL (NEG-TRACE) Urine Glucose (UA) NEG mg/dL (NEG) Urine Ketones TRACE mg/dL (NEG) Urine Occult Blood LARGE (NEG) Urine Nitrite NEG (NEG) Urine Bilirubin NEG (NEG) Urine Urobilinogen LESS THAN 2.0 MG/DL (LESS THAN 2.0) Urine Leukocyte Esterase SMALL (NEG) Urine RBC /hpf (0-3) Urine WBC /hpf (0-5) Urine WBC Clumps MANY (NONE) Urine Bacteria RARE /hpf (NONE) Urine Eosinophils NONE SEEN /HPF (NONE SEEN) Urine Random Creatinine 83.2 MG/DL Urine Random Sodium 43 MEQ/L Sodium Level 145 MEQ/L 144 MEQ/L (136-145) (136-145) Potassium Level 3.5 MEQ/L 3.9 MEQ/L (3.5-5.1) (3.5-5.1) Chloride Level 119 MEQ/L 115 MEQ/L (98-107) (98-107) Carbon Dioxide Level 13.7 MEQ/L 14.0 MEQ/L (21.0-32.0) (21.0-32.0) Anion Gap 12 MEQ/L (5-15) 15 MEQ/L (5-15) Blood Urea Nitrogen 63 MG/DL (7-18) 70 MG/DL (7-18) Creatinine 3.61 MG/DL 3.56 MG/DL (0.50-1.00) (0.50-1.00) Estimat Glomerular Filtration 12 ML/MIN (>89) 12 ML/MIN (>89) Rate Random Glucose 111 MG/DL 125 MG/DL (74-106) (74-106) Calcium Level 7.4 MG/DL 8.1 MG/DL (8.5-10.1) (8.5-10.1) Protein Corrected Calcium 8.3 MG/DL (8.5-10.1) Total Protein 5.5 GM/DL (6.4-8.2) Random Vancomycin Level 11.6 COMMENT 24.3 COMMENT White Blood Count 19.5 TH/MM3 (4.0-11.0) Red Blood Count 3.59 MIL/MM3 (4.00-5.30) Hemoglobin 11.3 GM/DL (11.6-15.3) Hematocrit 34.6 % (35.0-46.0) Mean Corpuscular Volume 96.5 FL (80.0-100.0) Mean Corpuscular Hemoglobin 31.5 PG (27.0-34.0) Mean Corpuscular Hemoglobin 32.6 % Concent (32.0-36.0) Red Cell Distribution Width 14.8 % (11.6-17.2) Platelet Count 159 TH/MM3 (150-450) Mean Platelet Volume 10.1 FL (7.0-11.0) Magnesium Level 3.0 MG/DL (1.5-2.5) Result Diagram: 06/15/16 0900 06/15/16 0900 Microbiology Microbiology Date/Time Procedure Status Source Growth 06/13/16 21:20 Aerobic Blood Culture - Final Resulted Blood Peripheral S. Aureus Mrsa 06/13/16 21:20 Anaerobic Blood Culture - Preliminary Resulted Blood Peripheral NO GROWTH IN 2 DAYS 06/13/16 21:32 Aerobic Blood Culture - Final Resulted Blood Peripheral S. Aureus Mrsa 06/13/16 21:32 Anaerobic Blood Culture - Preliminary Resulted Blood Peripheral NO GROWTH IN 2 DAYS . Imaging Last Impressions Renal Ultrasound 06/14/16 0000 Signed Impressions: Service Date/Time: Tuesday, June 14, 2016 17:37 - CONCLUSION: 1. Heterogeneous kidneys characteristic of medical renal disease with trace perinephric fluid. No hydronephrosis. Leonard Berg MD Chest X-Ray 06/12/16 0521 Signed Impressions: Service Date/Time: Sunday, June 12, 2016 05:25 - CONCLUSION: Underinflated and rotated examination without an acute finding appreciated. Flavio Boyd MD . Patient/Family Conference Present at Family Conference: Met with son and daughter. Family Conference Time (mins): 60 Family Conference Location: Consult Room Issues Discussed: * Palliative care role, purpose, approach * Additional medical, psychosocial, and spiritual history * Patients general health, functional status, and cognitive changes in the months leading up to the current hospitalization * Patient/family understanding of the current medical problems * Patient/family understanding of prognosis * Patients goals of care as best understood from advance directives and/or conversations and/or values * Current medical treatment options and benefits/burdens of those options * Likely scenarios comparing ongoing aggressive care with a transition to comfort measures only * Questions answered to the best of my ability * Palliative care contact information provided Assessment and Plan Disease Oriented Problem List: (1) MRSA (methicillin resistant staph aureus) culture positive Comment: blood, urine and nasal swab (2) Sepsis (3) UTI (urinary tract infection) (4) CKD (chronic kidney disease) (5) Hypothyroid (6) Hyperglycemia (7) Hypotension (8) Dementia (9) Acute renal failure Symptom Scale: (1) Weakness 0-10 Scale: Unable to quantify (2) Malnutrition 0-10 Scale: Unable to quantify Comment: Protein 5.5. (3) Lethargy 0-10 Scale: Unable to quantify Pertinent Non-Medical Issues Psychosocial: . Has 1 daughter and 3 sons. Spiritual:[employer]. Legal: Living Will and Health Care Power of Sand Screener scanned into EMR and copy on chart. Patient is incapacitated and will not regain capacity. DaughterZaida is designated HC POA. Ethical issues impacting care: No known concerns. . Important Contacts * Zaida Auguste), [facility] [phone] Prognosis Given advanced age, worsening dementia, declining cognitive, functional and nutritional status prior to admission overall prognosis is poor. Hospice appropriate if goals are comfort oriented. . Code Status: No Code Plan * Living Will and Health Care Power of Sand Screener scanned into EMR and copy on chart. Patient is incapacitated and will not regain capacity. DaughterZaida is designated HC POA. * NO CODE * Palliative care meeting: Met with daughter (Zaida Oseguera/HC-POA) and one son (Oscar) . Both have a good understanding of current medical condition, high risk of further decline or even given advanced age, critical illness and underlying dementia. They have already elected NO CODE, they do not want dialysis and do not feel patient would want a feeding tube (they will speak more about feeding tube as a family). For now, they desire continued aggressive care, though are very open to hospice. They are realistic and hope treatment of UTI would give her some more quality time. Open to hospice if further set backs or decline. They understand she is hospice eligible at this time, are not quite ready to make this decision today. * SYMPTOMS: Weakness: due to underlying dementia, advanced age and acute UTI/ sepsis. Bed to WC bound at baseline. Lethargy: due to underlying dementia, advanced age and acute UTI/sepsis. Family hopeful this will improve with treatment of UTI. Malnutrition: Protein 5.5. NG placed for artificial feedings. Will monitor. * Palliative care number provided. * Palliative care will continue to follow to assist with symptom management and clarification of treatment goals as needed. . Time Spent Total Floor Time (mins): 90 Face to Face Time (mins): 60 >50% Counseling/Coord of Care: Yes Thank you for the opportunity to participate in the care of Ms. Martinez. Attestation To help prompt me to consider important information that might be impacting today's encounter and assessment, information from prior notes written by myself or my colleagues may have been "brought forward" into today's note. My signature on this note, however, is an attestation that I personally performed the exam, history, and/or decision-making noted today, and, unless otherwise indicated, the interactions with patient, family, and staff as well as the review of records all occurred today. I also attest that the listed assessment and stated plan reflect my best clinical judgment today based on the combination of historical information, prior notes, and today's exam/ interactions. When time spent is documented, it refers only to time spent today by the signer, or if indicated, combined time spent today by collaborating physician/nurse practitioner. RITESH BARNHART Jun 15, 2016 14:06
--- NOTE | 2016-06-15 14:48 | EC ---
Study Study Date:06/15/2016 STUDY CONCLUSIONS SUMMARY - Left ventricle: The cavity size was normal. Wall thickness was normal. Systolic function was normal. The estimated ejection fraction was in the range of 55% to 60%. Wall motion was normal; there were no regional wall motion abnormalities. - Mitral valve: Mild to moderate regurgitation. - Tricuspid valve: Moderate-severe regurgitation. - Pulmonary arteries: Systolic pressure was mildly increased. PA peak pressure: 46mm Hg (S). If LV function is below 40, please consider prescribing an ACEI or ARB or document rationale for non-use. PROCEDURE DATA STUDY STATUS: Elective. Procedure: Transthoracic echocardiography. Image quality was good. Scanning was performed from the parasternal, apical, and subcostal acoustic windows. Study completion: The patient tolerated the procedure well. Transthoracic echocardiography. M-mode, complete 2D, complete spectral Doppler, and color Doppler. Height: Height: 64in. Weight: Weight: 131.7lb. Body mass index: BMI: 22.7kg/m^2. Body surface area: BSA: 1.64m^2. Patient status: Inpatient. CARDIAC ANATOMY LEFT VENTRICLE: The cavity size was normal. Wall thickness was normal. Systolic function was normal. The estimated ejection fraction was in the range of 55% to 60%. Wall motion was normal; there were no regional wall motion abnormalities. AORTIC VALVE: Trileaflet; mildly thickened, mildly calcified leaflets. Doppler: Transvalvular velocity was within the normal range. There was no stenosis. Trace to mild regurgitation. AORTA: Aortic root: The aortic root was normal in size. MITRAL VALVE: Structurally normal valve. Doppler: Transvalvular velocity was within the normal range. There was no evidence for stenosis. Mild to moderate regurgitation. Valve area by pressure half-time: 3.01cm^2. Indexed valve area by pressure half-time: 1.84cm^2/m^2. Peak gradient: 4mm Hg (D). LEFT ATRIUM: The atrium was at the upper limits of normal in size. RIGHT VENTRICLE: The cavity size was normal. Wall thickness was normal. PULMONIC VALVE: Doppler: Transvalvular velocity was within the normal range. There was no evidence for stenosis. Mild to moderate regurgitation. TRICUSPID VALVE: Structurally normal valve. Doppler: Transvalvular velocity was within the normal range. Moderate-severe regurgitation. Peak gradient: 39mm Hg (D). PULMONARY ARTERY: The main pulmonary artery was normal-sized. Systolic pressure was mildly increased. RIGHT ATRIUM: The atrium was normal in size. PERICARDIUM: There was no pericardial effusion. SYSTEMIC VEINS: Inferior vena cava: The vessel was moderately dilated. Patient weight: 131.7lb _Ejection fraction:_ 65-75% _Fractional shortening:_ 32% up to 5Kg 5-11.5Kg 11.6-22.9Kg 23-45Kg 45-57Kg Aortic Root 7-13 <17 13-22 17-27 17-27 LA diam 6-13 <23 24-38 33-47 37-40 RVID 10-17 7-15 7-15 7-18 8-17 LVIDd 12-22 <32 24-38 33-47 37-40 LVPW 2-4 3-6 5-7 6-8 7-8 IVS 2-4 3-6 5-7 6-8 7-8 BASIC MEASUREMENTS ADULT NORMAL Left ventricle LV internal dimension, ED, chordal *39.1 mm 43-52 level, PLAX LV internal dimension, ES, chordal 29.9 mm 23-38 level, PLAX Fractional shortening, chordal level, *24 % >29 PLAX LV posterior wall thickness, ED 13.2 mm IVS/LVPW ratio, ED 0.95 <1.3 Ventricular septum Septal thickness, ED 12.5 mm Aortic valve Leaflet separation 16 mm 15-26 Left atrium Anterior-posterior dimension 36 mm Anterior-posterior dimension index *2.2 cm/m^2 <2.2 Right ventricle RV internal dimension, ED, PLAX 28.6 mm 19-38 BASIC MEASUREMENTS ADULT NORMAL Aortic valve Leaflet separation 16 mm 15-26 Aorta Root diameter, ED 33 mm 20-37 Left atrium Anterior-posterior dimension, ES 39 mm 19-40 Anterior-posterior dimension index, ES *2.38 cm/m^2 <2.2 LA/aortic root ratio 1.18 DOPPLER MEASUREMENTS ADULT NORMAL Main pulmonary artery Pressure, S *46 mm Hg =30 Aortic valve Peak velocity, S 115 cm/s Regurgitant velocity, ED 346 cm/s Regurgitant deceleration 2160 cm/s^2 Regurgitant pressure half-time 470 ms Regurgitant gradient, ED 48 mm Hg Mitral valve Peak E-wave velocity 96.7 cm/s Peak A-wave velocity 56.3 cm/s Pressure half-time 73 ms Peak gradient, D 4 mm Hg Peak E/A ratio 1.7 Valve area, pressure half-time 3.01 cm^2 Valve area index, pressure half-time 1.84 cm^2/m^2 Tricuspid valve Peak gradient, D 39 mm Hg Maximal inflow velocity 286 cm/s Regurgitant peak velocity 307 cm/s Peak RV-RA gradient, S 38 mm Hg Systemic veins Estimated CVP 10 mm Hg Right ventricle RV pressure, S *48 mm Hg <30 Pulmonic valve Peak velocity, S 76 cm/s LEGEND: Mean values are shown as u=mean value. Asterisk (*) ramos values outside specified normal range. Prepared and signed by Lito Keith [id number]
--- NOTE | 2016-06-15 17:12 | HHI.NPPN ---
Subjective General Problems: Anemia, Hypotension, Mebatolic Acidosis Renal Failure: Chronic, Acute, Stage III History of Present Illness 85-year-old female with past medical history of Alzheimer's disease, history of hypertension, hyperlipidemia, underlying dementia, hypothyroidism, chronic kidney disease, anxiety and depression who was brought to the hospital because of altered mental status. I was called to see the patient because of elevated BUN and creatinine. The patient has history of chronic kidney disease and her baseline creatinine has been in the range of 1.1 to 1.3 and this was in 2013 and 2014, and now she came in with a creatinine of 2.2. Additional Remarks Patient is clinically same, remain non verbal, not in distress. Review of Systems General General Remarks Cannot be taken. Objective Data Data 06/14/16 06/15/16 19:00 07:00 Intake Total 1453 ml 1735 ml Output Total 100 ml 400 ml Balance 1353 ml 1335 ml IV Total 1453 ml 1672 ml Other 63 ml Output Urine Total 100 ml 400 ml # Bowel Movements 1 Vital Signs Date Time Temp Pulse Resp B/P Pulse Ox O2 Delivery O2 Flow Rate FiO2 06/15/16 14:00 71 06/15/16 12:00 97.7 72 24 137/63 94 06/15/16 12:00 72 06/15/16 10:00 66 06/15/16 09:26 94 Nasal Cannula 4.00 06/15/16 08:00 97.6 65 23 119/62 94 06/15/16 08:00 65 06/15/16 06:00 63 06/15/16 04:00 63 06/15/16 04:00 97.5 63 20 98/60 95 06/15/16 02:00 64 06/15/16 00:00 98.6 100 24 105/57 93 06/15/16 00:00 100 06/14/16 22:00 105 06/14/16 20:00 97.4 115 20 120/85 94 06/14/16 20:00 115 06/14/16 18:00 108 -: 06/15/16 0900 06/15/16 0900 Physical Exam General Appearance: Sleeping, Malnourished Ears & Nose Ears & Nose Exam: Nasal Mucosa Paola Neck Neck Exam: Neck Supple Pulmonary Resp Exam: No Distress, Rhonchi, Decreased Bases, Diminished Breath Sounds Cardiology CV Exam: Irregular, Arrhythmia, Tachycardia Gastrointestinal/Abdomen GI Exam: Soft, Bowel Sounds Present, Distended, Bowel Sounds Hypoactive Musculoskeletal MS Exam: Atrophy Integumentary Skin Exam: Warm Extremeties Extremities Exam: Trace Edema Neurologic Neuro Exam: Unresponsive VTE Prophylaxis Device: SCDs Assessment/Plan Assessment Summary: DEAN/Acute Renal Failure, Dehydration, Hypotension, CKD Stage III Problem List: (1) UTI (urinary tract infection) (2) Hypotension (3) Dementia (4) Bacteremia (5) Hypothyroid (6) Hyperglycemia (7) MRSA (methicillin resistant staph aureus) culture positive (8) CKD (chronic kidney disease) (9) Acute renal failure Plan BUN/Creatinine almost same. BP is low, and HR controlled, now on Diltiazem. Blood culture growing MRSA. Continue antibiotics and IVF. HCo3 is low, will add NaHco3 in IVF. BP is better, off pressors. Urine out put is slightly better. No urgent need for Dialysis. Problem Qualifiers (1) UTI (urinary tract infection): Qualified Code: N39.0 - Urinary tract infection without hematuria, site unspecified (2) Hypotension: Qualified Code: I95.9 - Hypotension, unspecified hypotension type (3) Dementia: Qualified Code: F03.90 - Dementia without behavioral disturbance, unspecified dementia type (4) Hypothyroid: Qualified Code: E03.9 - Hypothyroidism, unspecified type (5) CKD (chronic kidney disease): Qualified Code: N18.9 - CKD (chronic kidney disease), unspecified stage (6) Acute renal failure: Qualified Code: N17.9 - Acute renal failure, unspecified acute renal failure type Dinora Miller MD Jun 15, 2016 17:12
[2016-06-15] MEDS: SODIUM BICARBONATE 8.4% INJ 150 MEQ in DEXTROSE 5% IN WATE 1000ML INJ 1,000 ML IV SCH ×2 (18:08)
--- NOTE | 2016-06-15 23:07 | HHI.IDPN ---
Subjective Subjective Remarks Delayed entry - pt seen around 1800 today Cirilo fever remans unresponsive On NC O2 Off pressors started to make small amount of urine Now DNR, family considereing hospice care Antibiotics vancomycin Allergies: Coded Allergies: Bethanechol (Verified Allergy, Severe, 06/12/16) Cipro (Verified Allergy, Unknown, 06/12/16) TOLD BY [facility] *[facility] Multi-Drug Resistant Organism (Verified Adverse Reaction, Unknown, ) MRSA (urine/blood) - 06/12/16 MRSA PCR Screen POSITIVE-06/13/16 Objective . Vital Signs Date Time Temp Pulse Resp B/P Pulse Ox O2 Delivery O2 Flow Rate FiO2 06/15/16 19:16 95 Nasal Cannula 4.00 06/15/16 18:00 70 06/15/16 16:00 65 06/15/16 16:00 97.4 65 20 117/61 94 06/15/16 14:00 71 06/15/16 12:00 97.7 72 24 137/63 94 06/15/16 12:00 72 06/15/16 10:00 66 06/15/16 09:26 94 Nasal Cannula 4.00 06/15/16 08:00 97.6 65 23 119/62 94 06/15/16 08:00 65 06/15/16 06:00 63 06/15/16 04:00 63 06/15/16 04:00 97.5 63 20 98/60 95 06/15/16 02:00 64 06/15/16 00:00 98.6 100 24 105/57 93 06/15/16 00:00 100 06/14/16 06/14/16 06/15/16 15:00 23:00 07:00 Intake Total 1453 ml 1277 ml 458 ml Output Total 100 ml 250 ml 150 ml Balance 1353 ml 1027 ml 308 ml IV Total 1453 ml 1217 ml 455 ml Other 60 ml 3 ml Output Urine Total 100 ml 250 ml 150 ml # Bowel Movements 0 1 . Laboratory Tests Test 06/14/16 06/15/16 04:15 09:00 White Blood Count 27.7 TH/MM3 19.5 TH/MM3 Red Blood Count 3.58 MIL/MM3 3.59 MIL/MM3 Hemoglobin 11.1 GM/DL 11.3 GM/DL Hematocrit 34.7 % 34.6 % Mean Corpuscular Volume 97.0 FL 96.5 FL Mean Corpuscular Hemoglobin 31.0 PG 31.5 PG Mean Corpuscular Hemoglobin 32.0 % 32.6 % Concent Red Cell Distribution Width 14.8 % 14.8 % Platelet Count 161 TH/MM3 159 TH/MM3 Mean Platelet Volume 10.0 FL 10.1 FL Laboratory Tests Test 06/14/16 06/14/16 06/15/16 04:15 10:40 09:00 Sodium Level 145 MEQ/L 145 MEQ/L 144 MEQ/L Potassium Level 3.5 MEQ/L 3.5 MEQ/L 3.9 MEQ/L Chloride Level 117 MEQ/L 119 MEQ/L 115 MEQ/L Carbon Dioxide Level 15.6 MEQ/L 13.7 MEQ/L 14.0 MEQ/L Anion Gap 12 MEQ/L 12 MEQ/L 15 MEQ/L Blood Urea Nitrogen 63 MG/DL 63 MG/DL 70 MG/DL Creatinine 3.55 MG/DL 3.61 MG/DL 3.56 MG/DL Estimat Glomerular Filtration 12 ML/MIN 12 ML/MIN 12 ML/MIN Rate Random Glucose 114 MG/DL 111 MG/DL 125 MG/DL Calcium Level 7.4 MG/DL 7.4 MG/DL 8.1 MG/DL Protein Corrected Calcium 8.3 MG/DL 8.3 MG/DL Magnesium Level 2.3 MG/DL 3.0 MG/DL Total Protein 5.5 GM/DL 5.5 GM/DL Microbiology Date/Time Procedure Status Source Growth 06/13/16 21:20 Aerobic Blood Culture - Final Resulted Blood Peripheral S. Aureus Mrsa 06/13/16 21:20 Anaerobic Blood Culture - Preliminary Resulted Blood Peripheral NO GROWTH IN 2 DAYS 06/13/16 21:32 Aerobic Blood Culture - Final Resulted Blood Peripheral S. Aureus Mrsa 06/13/16 21:32 Anaerobic Blood Culture - Preliminary Resulted Blood Peripheral NO GROWTH IN 2 DAYS Imaging Last Impressions Renal Ultrasound 06/14/16 0000 Signed Impressions: Service Date/Time: Tuesday, June 14, 2016 17:37 - CONCLUSION: 1. Heterogeneous kidneys characteristic of medical renal disease with trace perinephric fluid. No hydronephrosis. Leonard Berg MD Chest X-Ray 06/12/16 0521 Signed Impressions: Service Date/Time: Sunday, June 12, 2016 05:25 - CONCLUSION: Underinflated and rotated examination without an acute finding appreciated. Flavio Boyd MD Physical Exam CONSTITUTIONAL/GENERAL: This is a frail elderly female patient, in no apparent distress. TUBES/LINES/DRAINS: SKIN: No jaundice, rashes, or lesions.. Skin temperature appropriate. Not diaphoretic. Small wound with poor granulations and small amoun t of purulence in RUE HEAD: Atraumatic. Normocephalic. EYES: Pupils equal and round and reactive. Extraocular motions intact. No scleral icterus. No injection or drainage. Fundi not examined. ENT: Oral mucosae drayish. NECK: Trachea midline. Supple, nontender. CARDIOVASCULAR: Regular rate and rhythm without murmurs, gallops, or rubs. No JVD. Peripheral pulses symmetric. RESPIRATORY/CHEST: Symmetric, unlabored respirations. Few scattered rhonchi. GASTROINTESTINAL: Abdomen soft, non-tender, nondistended. No hepato-splenomegaly , or palpable masses. No guarding. Bowel sounds present. GENITOURINARY: Without palpable bladder distension. Bingham catheter in place with very cloudy mud colored urine MUSCULOSKELETAL: Extremities without clubbing, cyanosis, or edema. No joint tenderness or effusion noted. No calf tenderness. No mottling or clubbing. LYMPHATICS: No palpable cervical or supraclavicular adenopathy. NEUROLOGICAL: Obtunded. Not responsive or following commands. PSYCHIATRIC: unable to assess Assessment & Plan Remarks High grade MRSA sepsis with inapparent source ? endocarditis - 2 D echo negative Sepsis, probably severe - hypotension - marginal UOP - ARF, anuria ? will need HD Mental status change - cont vancomycin - repeat blood clx Plans to transition to hospice care dw Colette Gamez MD Jun 15, 2016 23:07
[2016-06-16] VITALS (13 sets, daily range): BP systolic 100–147; BP diastolic 54–72; PULSE 68–92; RESP 19–24; TEMP 97.5–98; O2SAT 91–95
[2016-06-16 04:30] LABS: AUTOMATED NEUTROPHIL # 12.7 TH/MM3 (1.8-7.7); BASOPHIL % 0.3 % (0.0-2.0); EOSINOPHIL % 0.1 % (0.0-4.0); HEMATOCRIT 34.5 % (35.0-46.0); HEMO FLAGS DIFF FINAL; LYMPH % 6.5 % (9.0-44.0); LYMPHOCYTE # 0.9 TH/MM3 (1.0-4.8); MEAN CELL VOLUME 94.7 FL (80.0-100.0); MEAN CORPUSCULAR HEMOGLOBIN 31.4 PG (27.0-34.0); MEAN CORPUSCULAR HGB CONC 33.2 % (32.0-36.0); MONO % 4.4 % (0.0-8.0); NEUT % 88.7 % (16.0-70.0); PLATELET COUNT 199 TH/MM3 (150-450); RED BLOOD COUNT 3.65 MIL/MM3 (4.00-5.30); RED CELL DISTRIBUTION WIDTH 14.8 % (11.6-17.2); WHITE BLOOD COUNT 14.3 TH/MM3 (4.0-11.0)
[2016-06-16 04:56] LABS: BICARBONATE 15.8 MEQ/L (21.0-32.0); POTASSIUM 3.9 MEQ/L (3.5-5.1)
[2016-06-16] MEDS: LEVOTHYROXINE SODIUM 100 MCG TAB PO SCH (05:47)
[2016-06-16] MEDS: HEPARIN SODIUM - SQ 10,000 UNITS/ML VIAL SQ SCH ×2 (05:47→18:07)
[2016-06-16] MEDS: CHLORHEXIDINE GLUCONATE 2 % 1 PACK (2 CLOTHS)(taper/protocol) TOPICAL SCH (05:54)
[2016-06-16] MEDS: SODIUM BICARBONATE 8.4% INJ 150 MEQ in DEXTROSE 5% IN WATE 1000ML INJ 1,000 ML IV SCH ×2 (06:07)
[2016-06-16] MEDS ORDERED: FUROSEMIDE 100 MG/10 ML VIAL IV PUSH ONE ×2 (06:45→18:00)
--- NOTE | 2016-06-16 06:59 | HHI.CCPN ---
Subjective Remarks/Hospital Course Hospital Course: 85-year-old female who is a resident of a intermediate due to advanced dementia was brought by EMS for lethargy and unresponsiveness. She was originally admitted to medical floor however developed low blood pressure and tachycardia and now she is transferred to ICU. Patient is lethargic and unable to provide any history or information is received from the chart and interviewing patient' s daughter. Per daughter's statement the patient was difficult to arouse the morning prior admission. Normally she is quite active and around 4:30 in the morning she is usually rolling around on her wheelchair and ready to eat toast for breakfast. The daughter states it is been this way lethargic and barely arousable for about a week or more. Patient was also recently started on Gabapentin and daughter questions if it may have induced AMS. Subjective: 06/15: clinically improving today. back in sinus rhythm. afebrile. vanc trough therapeutic today. mental status still altered. family wants to consider hospice care. will consult palliative to discuss goals of care, but patient from this acute illness is clinically improving. 06/16: clinically worse this morning. in moderate respiratory distress. bilateral lung crackles. echo with severe TR and very dilated IVC from yesterday. clinically very volume overloaded. Cr not improved and remains oliguric. at this point since she is DNR/DNI, we must try and convert her to non-oliguric renal failure to prevent respiratory failure. repeat blood cultures pending. echo without evidence of endocarditis. Objective Vital Signs Date Time Temp Pulse Resp B/P Pulse Ox O2 Delivery O2 Flow Rate FiO2 06/16/16 06:00 68 06/16/16 04:00 98.0 19 100/54 95 06/15/16 19:16 Nasal Cannula 4.00 Intake and Output 06/15/16 06/15/16 06/16/16 08:00 16:00 00:00 Intake Total 458 ml 254 ml 1051 ml Output Total 150 ml 200 ml 250 ml Balance 308 ml 54 ml 801 ml Result Diagram: 06/16/16 0335 06/16/16 0335 Objective Remarks GENERAL: Elderly woman in moderate/severe respiratory distress SKIN: Warm and dry. HEAD: Normocephalic. EYES: No scleral icterus. No injection or drainage. NECK: trachea midline. +JVD CARDIOVASCULAR: Regular rate and rhythm without murmurs, gallops, or rubs. RESPIRATORY: tachypneic in distress. bilateral coarse crackles in all lung porter. using accessory muscles. GASTROINTESTINAL: Abdomen soft, non-tender, nondistended. MUSCULOSKELETAL: No cyanosis. 1+ peripheral edema. A/P Assessment and Plan Assessment: 85yF with end-stage dementia and urinary tract infection causing septic shock and acute kidney injury. Clinically now in respiratory distress. we will pursue forced diuresis to attempt to convert her to non-oliguric renal failure, even though her DEAN persists and her Cr has not downtrended. We will give Lasix 200mg iv. stop her ivf. we will convert her bicarb to PO. off Norepinephrine currently. She remains very critically ill this morning. Acute Hypoxic Respiratory Failure Acute Respiratory Distress - Lasix 200mg iv x 1 - wean o2 for spo2 > 90% - stop ivf. - likely volume overload. Altered mental status - Advanced Alzheimer dementia - Metabolic toxic - Possibly gabapentin effect, continue to hold. - Neuro checks per unit protocol Hypothyroidism - Synthroid Septic Shock secondary to urinary tract infection- resolving. - random vanc level now therapeutic. MRSA UTI. - Dr. Gunter following. - f/u repeat BCx 06/15 Atrial Fibrillation with rapid ventricular response- resolved. - continue amio 200mg po q12h. DVT GI prophylaxis - Teds SCDs and subcutaneous heparin and Pepcid Critical Care time: 48 minutes, exclusive of separately billable procedures. Mark Ribera MD Jun 16, 2016 06:59
[2016-06-16] MEDS: LACTIC ACID (AMMONIUM LACTATE) 12% LOTION 225 GM BTL TOPICAL SCH ×2 (08:24→21:00)
[2016-06-16] MEDS: OXcarbazepine 300 MG TAB PO SCH ×2 (08:24→21:56)
[2016-06-16] MEDS: SODIUM CHLORIDE 0.9% FLUSH 10 ML FLUSH IV FLUSH SCH ×2 (08:24→21:00)
[2016-06-16] MEDS: SODIUM BICARBONATE 650 MG TAB PO SCH ×3 (08:24→21:56)
[2016-06-16] MEDS: predniSONE 20 MG TAB PO SCH (08:24)
[2016-06-16] MEDS: AMIODARONE 200 MG TAB PO SCH ×2 (08:24→21:56)
[2016-06-16] MEDS: MULTIVITAMIN TAB PO SCH (08:24)
[2016-06-16] MEDS: CALCIUM/VITAMIN D 250 MG/125 U TAB PO SCH ×2 (08:24→21:56)
--- NOTE | 2016-06-16 13:47 | HHI.HCPN ---
Reason for visit a. To assist with evaluation and management of symptoms including: weakness , confusion, malnutrition. b. To assist medical decision maker(s) with: better understanding of current medical conditions; weighing benefits/burdens of medical treatment options; making medical treatment decisions. . Subjective/Interval History Patient and examined in ICU. Son and [id number] at bedside. Patient remains unresponsive, off sedation. Tolerating tube feeding at 60 mL per hour via NG tube. Afebrile. Blood pressure 124/59, off Levophed. Increasing oxygen needs this morning, now on oxygen nasal cannula 6 L, O2 sat during my visit 90%. WBC 14.3 , decreased from 19.5. Creatinine remains elevated at 3.64, was given Lasix 200 mg times 1 dose, nurse reports 1 L urine output since Lasix. No new imaging. Discussed with Dr. Ribera. Will monitor in ICU for another 24 hours, will reevaluate clinical condition. For now will continue aggressive care short of DNR, no dialysis per family wishes. Palliative care number provided to family should they have any questions or concerns. . Family/friend interactions Discussed with son and [id number]-[id number] at bedside. Desires continued aggressive care at this time short of NO CODE. We'll reevaluate clinical status 06/17/16. . Advance Directives Living Will: Copy in medical record Health Care Surrogate: Copy in medical record Advance Directive Specifics Date completed: 09/13/1998 . Health Care Surrogate(s): Designated Health care power of business operations specialist is Zaida hightower. . Documented care wishes: "take into account my preference for a quality of life and my preference that I not continue to live for a prolonged period of time without reasonable prospect of amelioration or recovery time either in a irreversible coma or unconscious state or in a conscious state with severely and irreversibly impaired cognitive faculties, massive paralysis or with severe, uncontrollable pain or suffering , whether physical or psychological... Significant change in goals: NO CODE, no hemodialysis. Continue aggressive care for now, will reevaluate clinical status 06/17/16. . Objective Vital Signs Date Time Temp Pulse Resp B/P Pulse Ox O2 Delivery O2 Flow Rate FiO2 06/16/16 11:54 92 Nasal Cannula 4.00 06/16/16 08:00 80 06/16/16 08:00 97.8 80 20 124/59 91 4/4/17 06:00 68 06/16/16 04:00 98.0 69 19 100/54 95 06/16/16 04:00 69 06/16/16 02:00 83 06/16/16 00:00 79 06/16/16 00:00 97.6 79 23 131/63 95 06/15/16 22:00 79 06/15/16 20:00 73 06/15/16 20:00 97.7 73 22 121/67 94 06/15/16 19:16 95 Nasal Cannula 4.00 06/15/16 18:00 70 06/15/16 16:00 65 06/15/16 16:00 97.4 65 20 117/61 94 06/15/16 14:00 71 Intake & Output 06/16/16 06/16/16 07:00 19:00 Intake Total 2002 ml Output Total 475 ml 950 ml Balance 1527 ml -950 ml Intake Oral 0 ml IV Total 1244 ml Tube Feeding 638 ml Other 120 ml Output Urine Total 475 ml 950 ml # Bowel Movements 0 Physical Exam CONSTITUTIONAL/GENERAL: This is an elderly, frail female, critically ill in ICU. TUBES/LINES/DRAINS: NC, NG tube, PIVs, [place], SCDs. SKIN: No jaundice, rashes, or lesions. Ecchymoses on upper extremities. No wounds seen anteriorly. Skin temperature appropriate. Not diaphoretic. EYES: Eyes closed. Does not open eyes to voice, exam or noxious stimuli. CARDIOVASCULAR: Regular rate and rhythm without murmurs, gallops, or rubs. RESPIRATORY/CHEST: Symmetric, unlabored respirations. Course breath sounds bilaterally. GASTROINTESTINAL: Abdomen soft, non-tender, nondistended. No guarding. Bowel sounds hypoactive. GENITOURINARY: Without palpable bladder distension. Bingham catheter in place. MUSCULOSKELETAL: Extremities without clubbing, cyanosis, or edema. No mottling or clubbing. NEUROLOGICAL: Does not awaken to voice or exam. PSYCHIATRIC: Does not awaken to voice or exam. . Diagnostic Tests Laboratory Laboratory Tests Test 06/13/16 06/14/16 06/14/16 06/14/16 22:50 04:15 10:05 10:40 Nasal Screen MRSA (PCR) POSITIVE (NEGATIVE) White Blood Count 27.7 TH/MM3 (4.0-11.0) Red Blood Count 3.58 MIL/MM3 (4.00-5.30) Hemoglobin 11.1 GM/DL (11.6-15.3) Hematocrit 34.7 % (35.0-46.0) Mean Corpuscular Volume 97.0 FL (80.0-100.0) Mean Corpuscular Hemoglobin 31.0 PG (27.0-34.0) Mean Corpuscular Hemoglobin 32.0 % Concent (32.0-36.0) Red Cell Distribution Width 14.8 % (11.6-17.2) Platelet Count 161 TH/MM3 (150-450) Mean Platelet Volume 10.0 FL (7.0-11.0) Sodium Level 145 MEQ/L 145 MEQ/L (136-145) (136-145) Potassium Level 3.5 MEQ/L 3.5 MEQ/L (3.5-5.1) (3.5-5.1) Chloride Level 117 MEQ/L 119 MEQ/L (98-107) (98-107) Carbon Dioxide Level 15.6 MEQ/L 13.7 MEQ/L (21.0-32.0) (21.0-32.0) Anion Gap 12 MEQ/L (5-15) 12 MEQ/L (5-15) Blood Urea Nitrogen 63 MG/DL (7-18) 63 MG/DL (7-18) Creatinine 3.55 MG/DL 3.61 MG/DL (0.50-1.00) (0.50-1.00) Estimat Glomerular Filtration 12 ML/MIN (>89) 12 ML/MIN (>89) Rate Random Glucose 114 MG/DL 111 MG/DL (74-106) (74-106) Calcium Level 7.4 MG/DL 7.4 MG/DL (8.5-10.1) (8.5-10.1) Protein Corrected Calcium 8.3 MG/DL 8.3 MG/DL (8.5-10.1) (8.5-10.1) Magnesium Level 2.3 MG/DL (1.5-2.5) Total Protein 5.5 GM/DL 5.5 GM/DL (6.4-8.2) (6.4-8.2) Urine Color LIGHT-RED (YELLW/STRAW) Urine Turbidity HAZY (CLEAR) Urine pH 5.5 (5.0-8.5) Urine Specific [place] 1.015 (1.002-1.035) Urine Protein 100 mg/dL (NEG-TRACE) Urine Glucose (UA) NEG mg/dL (NEG) Urine Ketones TRACE mg/dL (NEG) Urine Occult Blood LARGE (NEG) Urine Nitrite NEG (NEG) Urine Bilirubin NEG (NEG) Urine Urobilinogen LESS THAN 2.0 MG/DL (LESS THAN 2.0) Urine Leukocyte Esterase SMALL (NEG) Urine RBC /hpf (0-3) Urine WBC /hpf (0-5) Urine WBC Clumps MANY (NONE) Urine Bacteria RARE /hpf (NONE) Urine Eosinophils NONE SEEN /HPF (NONE SEEN) Urine Random Creatinine 83.2 MG/DL Urine Random Sodium 43 MEQ/L Random Vancomycin Level 11.6 COMMENT Test 06/15/16 06/15/16 06/16/16 04:47 09:00 03:35 Random Vancomycin Level 24.3 COMMENT 23.0 COMMENT White Blood Count 19.5 TH/MM3 14.3 TH/MM3 (4.0-11.0) (4.0-11.0) Red Blood Count 3.59 MIL/MM3 3.65 MIL/MM3 (4.00-5.30) (4.00-5.30) Hemoglobin 11.3 GM/DL 11.5 GM/DL (11.6-15.3) (11.6-15.3) Hematocrit 34.6 % 34.5 % (35.0-46.0) (35.0-46.0) Mean Corpuscular Volume 96.5 FL 94.7 FL (80.0-100.0) (80.0-100.0) Mean Corpuscular Hemoglobin 31.5 PG 31.4 PG (27.0-34.0) (27.0-34.0) Mean Corpuscular Hemoglobin 32.6 % 33.2 % Concent (32.0-36.0) (32.0-36.0) Red Cell Distribution Width 14.8 % 14.8 % (11.6-17.2) (11.6-17.2) Platelet Count 159 TH/MM3 199 TH/MM3 (150-450) (150-450) Mean Platelet Volume 10.1 FL 9.7 FL (7.0-11.0) (7.0-11.0) Sodium Level 144 MEQ/L 145 MEQ/L (136-145) (136-145) Potassium Level 3.9 MEQ/L 3.9 MEQ/L (3.5-5.1) (3.5-5.1) Chloride Level 115 MEQ/L 115 MEQ/L (98-107) (98-107) Carbon Dioxide Level 14.0 MEQ/L 15.8 MEQ/L (21.0-32.0) (21.0-32.0) Anion Gap 15 MEQ/L (5-15) 14 MEQ/L (5-15) Blood Urea Nitrogen 70 MG/DL (7-18) 81 MG/DL (7-18) Creatinine 3.56 MG/DL 3.64 MG/DL (0.50-1.00) (0.50-1.00) Estimat Glomerular Filtration 12 ML/MIN (>89) 12 ML/MIN (>89) Rate Random Glucose 125 MG/DL 158 MG/DL (74-106) (74-106) Calcium Level 8.1 MG/DL 8.3 MG/DL (8.5-10.1) (8.5-10.1) Magnesium Level 3.0 MG/DL (1.5-2.5) Neutrophils (%) (Auto) 88.7 % (16.0-70.0) Lymphocytes (%) (Auto) 6.5 % (9.0-44.0) Monocytes (%) (Auto) 4.4 % (0.0-8.0) Eosinophils (%) (Auto) 0.1 % (0.0-4.0) Basophils (%) (Auto) 0.3 % (0.0-2.0) Neutrophils # (Auto) 12.7 TH/MM3 (1.8-7.7) Lymphocytes # (Auto) 0.9 TH/MM3 (1.0-4.8) Monocytes # (Auto) 0.6 TH/MM3 (0-0.9) Eosinophils # (Auto) 0.0 TH/MM3 (0-0.4) Basophils # (Auto) 0.0 TH/MM3 (0-0.2) CBC Comment DIFF FINAL Differential Comment Result Diagram: 06/16/16 0335 06/16/16 0335 Microbiology Microbiology Date/Time Procedure Status Source Growth 06/13/16 21:20 Aerobic Blood Culture - Final Resulted Blood Peripheral S. Aureus Mrsa 06/13/16 21:20 Anaerobic Blood Culture - Preliminary Resulted Blood Peripheral NO GROWTH IN 3 DAYS 06/13/16 21:32 Aerobic Blood Culture - Final Resulted Blood Peripheral S. Aureus Mrsa 06/13/16 21:32 Anaerobic Blood Culture - Preliminary Resulted Blood Peripheral NO GROWTH IN 3 DAYS 06/16/16 03:35 Aerobic Blood Culture Received Blood Peripheral Pending 06/16/16 03:35 Anaerobic Blood Culture Received Blood Peripheral Pending 06/16/16 03:40 Aerobic Blood Culture Received Blood Peripheral Pending 06/16/16 03:40 Anaerobic Blood Culture Received Blood Peripheral Pending . Imaging Last Impressions Renal Ultrasound 06/14/16 0000 Signed Impressions: Service Date/Time: Tuesday, June 14, 2016 17:37 - CONCLUSION: 1. Heterogeneous kidneys characteristic of medical renal disease with trace perinephric fluid. No hydronephrosis. Leonard Berg MD Chest X-Ray 06/12/16 0521 Signed Impressions: Service Date/Time: Sunday, June 12, 2016 05:25 - CONCLUSION: Underinflated and rotated examination without an acute finding appreciated. Flavio Boyd MD . Assessment and Plan Disease Oriented Problem List: (1) MRSA (methicillin resistant staph aureus) culture positive Comment: blood, urine and nasal swab (2) Sepsis (3) UTI (urinary tract infection) (4) CKD (chronic kidney disease) (5) Hypothyroid (6) Hyperglycemia (7) Hypotension (8) Dementia (9) Acute renal failure Symptom Scale: (1) Weakness 0-10 Scale: Unable to quantify (2) Malnutrition 0-10 Scale: Unable to quantify Comment: Protein 5.5. Tolerating tube feeding and 60 mL per hour via NG tube. (3) Lethargy 0-10 Scale: Unable to quantify Pertinent Non-Medical Issues Psychosocial: . Has 1 daughter and 3 sons. Spiritual:Yazidism liberty. Legal: Living Will and Health Care Power of [employer] scanned into EMR and copy on chart. Patient is incapacitated and will not regain capacity. Daughter, Zaida Silvestre is designated HC POA. Ethical issues impacting care: No known concerns. . Important Contacts * JanieAna Rosa Rowland (Nirmala), daughter /HCPOA: [phone] Prognosis Given advanced age, worsening dementia, declining cognitive, functional and nutritional status prior to admission overall prognosis is poor. Hospice appropriate if goals are comfort oriented. . Code Status: No Code Plan * Living Will and Health Care Power of [employer] Coach scanned into EMR and copy on chart. Patient is incapacitated and will not regain capacity. Daughter, Zaida Silvestre is designated HC POA. * NO CODE * Palliative care meeting: Met with daughter (Zaida Oseguera/HC-POA) and one son (Oscar) . Both have a good understanding of current medical condition, high risk of further decline or even given advanced age, critical illness and underlying dementia. They have already elected NO CODE, they do not want dialysis and do not feel patient would want a feeding tube (they will speak more about feeding tube as a family). For now, they desire continued aggressive care, though are very open to hospice. They are realistic and hope treatment of UTI would give her some more quality time. Open to hospice if further set backs or decline. They understand she is hospice eligible at this time, are not quite ready to make this decision today. * SYMPTOMS: Weakness: due to underlying dementia, advanced age and acute UTI/ sepsis. Bed to WC bound at baseline. Lethargy: due to underlying dementia, advanced age and acute UTI/sepsis. Family hopeful this will improve with treatment of UTI. Malnutrition: Protein 5.5. NG placed for artificial feedings. Will monitor. * Palliative care number provided. * Palliative care will continue to follow to assist with symptom management and clarification of treatment goals as needed. . Attestation To help prompt me to consider important information that might be impacting today's encounter and assessment, information from prior notes written by myself or my colleagues may have been "brought forward" into today's note. My signature on this note, however, is an attestation that I personally performed the exam, history, and/or decision-making noted today, and, unless otherwise indicated, the interactions with patient, family, and staff as well as the review of records all occurred today. I also attest that the listed assessment and stated plan reflect my best clinical judgment today based on the combination of historical information, prior notes, and today's exam/ interactions. When time spent is documented, it refers only to time spent today by the signer, or if indicated, combined time spent today by collaborating physician/nurse practitioner. RITESH BARNHART Jun 16, 2016 13:47
--- NOTE | 2016-06-16 14:14 | HHI.PR ---
Subjective Interval History remains unresponsive off pressors resp distress this am received 200 mg of lasix i/v good urine output now appears comfortable daughter at bedside Vitals/Results Intake & Output 06/15/16 06/15/16 06/16/16 15:00 23:00 07:00 Intake Total 254 ml 1051 ml 951 ml Output Total 200 ml 250 ml 225 ml Balance 54 ml 801 ml 726 ml Intake Oral 0 ml 0 ml 0 ml IV Total 169 ml 679 ml 565 ml Tube Feeding 25 ml 312 ml 326 ml Other 60 ml 60 ml 60 ml Output Urine Total 200 ml 250 ml 225 ml # Bowel Movements 0 0 0 Vital Signs Vital Signs Date Time Temp Pulse Resp B/P Pulse Ox O2 Delivery O2 Flow Rate FiO2 06/16/16 11:54 92 Nasal Cannula 4.00 06/16/16 08:00 80 06/16/16 08:00 97.8 80 20 124/59 91 06/16/16 06:00 68 06/16/16 04:00 98.0 69 19 100/54 95 06/16/16 04:00 69 06/16/16 02:00 83 06/16/16 00:00 79 06/16/16 00:00 97.6 79 23 131/63 95 06/15/16 22:00 79 06/15/16 20:00 73 06/15/16 20:00 97.7 73 22 121/67 94 06/15/16 19:16 95 Nasal Cannula 4.00 06/15/16 18:00 70 06/15/16 16:00 65 06/15/16 16:00 97.4 65 20 117/61 94 CBC/BMP: 06/16/16 0335 06/16/16 0335 Lab Results Laboratory Tests Test 06/16/16 03:35 White Blood Count 14.3 TH/MM3 Red Blood Count 3.65 MIL/MM3 Hemoglobin 11.5 GM/DL Hematocrit 34.5 % Mean Corpuscular Volume 94.7 FL Mean Corpuscular Hemoglobin 31.4 PG Mean Corpuscular Hemoglobin 33.2 % Concent Red Cell Distribution Width 14.8 % Platelet Count 199 TH/MM3 Mean Platelet Volume 9.7 FL Neutrophils (%) (Auto) 88.7 % Lymphocytes (%) (Auto) 6.5 % Monocytes (%) (Auto) 4.4 % Eosinophils (%) (Auto) 0.1 % Basophils (%) (Auto) 0.3 % Neutrophils # (Auto) 12.7 TH/MM3 Lymphocytes # (Auto) 0.9 TH/MM3 Monocytes # (Auto) 0.6 TH/MM3 Eosinophils # (Auto) 0.0 TH/MM3 Basophils # (Auto) 0.0 TH/MM3 CBC Comment DIFF FINAL Differential Comment Sodium Level 145 MEQ/L Potassium Level 3.9 MEQ/L Chloride Level 115 MEQ/L Carbon Dioxide Level 15.8 MEQ/L Anion Gap 14 MEQ/L Blood Urea Nitrogen 81 MG/DL Creatinine 3.64 MG/DL Estimat Glomerular Filtration 12 ML/MIN Rate Random Glucose 158 MG/DL Calcium Level 8.3 MG/DL Random Vancomycin Level 23.0 COMMENT Microbiology Microbiology 06/16/16 Aerobic Blood Culture, Received Pending 06/16/16 Anaerobic Blood Culture, Received Pending 06/16/16 Aerobic Blood Culture, Received Pending 06/16/16 Anaerobic Blood Culture, Received Pending Physical Exam General General Appearance: Sleeping, Malnourished Ears & Nose Ears & Nose Exam: Nasal Mucosa [place] Neck Neck Exam: Neck Supple Pulmonary Resp Exam: No Distress, Crackles, Rhonchi Cardiology CV Exam: Arrhythmia Gastrointestinal/Abdomen GI Exam: Soft, Bowel Sounds Present, Distended, Bowel Sounds Hypoactive Musculoskeletal MS Exam: Atrophy Integumentary Skin Exam: Warm Extremeties Extremities Exam: Trace Edema Neurologic Neuro Exam: Unresponsive VTE Prophylaxis VTE Prophylaxis Device: SCDs Assessment/Plan Problem List: (1) Sepsis (2) Acute renal failure (3) Dehydration (4) Dementia (5) MRSA (methicillin resistant staph aureus) culture positive (6) Bacteremia (7) Hypotension (8) UTI (urinary tract infection) (9) Hyperglycemia (10) Hypothyroid (11) CKD (chronic kidney disease) Assessment/Plan Septic shock Required transfer to intensive care 06/13 Critical care has been consulted, their input is appreciated continue with IV fluid resuscitation Continue with Levophed to keep MAP greater than 65, as needed continue abx, Vanco dosing per Pharmacy noted with MRSA in urine MRSA blood, repeat blood cultures sent today ID following ? endocarditis, 2D echo neg A. fib with RVR, paroxysmal Continue po amiodarone, in sinus rhythm ? anticoag Patient in acute renal injury, creatinine stable at 3.6 Nephrology has been consulted, their input is appreciated Renal ultrasound: medical renal disease monitor Urine output avoid nephrotoxic agents Keep NPO NGT in place dietary consult for tube feeding Patient noted obtunded, slight withdrawal to pain May need CT of the brain rule stroke Heparin for DVT prophylaxis DNR status Labs reviewed Condition critical discussed with family at bed side labs in am D/W RN d/w family at bed side Problem Qualifiers (1) Sepsis: Qualified Code: A41.02 - Sepsis due to methicillin resistant Staphylococcus aureus (MRSA) (2) Acute renal failure: Qualified Code: N17.9 - Acute renal failure, unspecified acute renal failure type (3) Dementia: Qualified Code: F03.90 - Dementia without behavioral disturbance, unspecified dementia type (4) Hypotension: Qualified Code: I95.9 - Hypotension, unspecified hypotension type (5) UTI (urinary tract infection): Qualified Code: N39.0 - Urinary tract infection without hematuria, site unspecified (6) Hypothyroid: Qualified Code: E03.9 - Hypothyroidism, unspecified type (7) CKD (chronic kidney disease): Qualified Code: N18.9 - CKD (chronic kidney disease), unspecified stage Jada Sapp MD Jun 16, 2016 14:14
--- NOTE | 2016-06-16 18:50 | HHI.NPPN ---
Subjective General Problems: Anemia, Hypotension, Mebatolic Acidosis Renal Failure: Chronic, Acute, Stage III History of Present Illness 85-year-old female with past medical history of Alzheimer's disease, history of hypertension, hyperlipidemia, underlying dementia, hypothyroidism, chronic kidney disease, anxiety and depression who was brought to the hospital because of altered mental status. I was called to see the patient because of elevated BUN and creatinine. The patient has history of chronic kidney disease and her baseline creatinine has been in the range of 1.1 to 1.3 and this was in 2013 and 2014, and now she came in with a creatinine of 2.2. Additional Remarks Patient remain unresponsive and non verbal. Review of Systems General General Remarks Cannot be taken. Objective Data Data 06/15/16 06/16/16 19:00 07:00 Intake Total 254 ml 2002 ml Output Total 200 ml 475 ml Balance 54 ml 1527 ml Intake Oral 0 ml 0 ml IV Total 169 ml 1244 ml Tube Feeding 25 ml 638 ml Other 60 ml 120 ml Output Urine Total 200 ml 475 ml # Bowel Movements 0 0 Vital Signs Date Time Temp Pulse Resp B/P Pulse Ox O2 Delivery O2 Flow Rate FiO2 06/16/16 18:00 90 06/16/16 16:00 90 06/16/16 16:00 97.8 90 20 147/72 91 06/16/16 14:00 82 06/16/16 12:00 92 06/16/16 12:00 98.0 86 20 132/62 92 06/16/16 11:54 92 Nasal Cannula 4.00 06/16/16 10:00 83 06/16/16 08:00 80 06/16/16 08:00 97.8 80 20 124/59 91 06/16/16 06:00 68 06/16/16 04:00 98.0 69 19 100/54 95 06/16/16 04:00 69 06/16/16 02:00 83 06/16/16 00:00 79 06/16/16 00:00 97.6 79 23 131/63 95 06/15/16 22:00 79 06/15/16 20:00 73 06/15/16 20:00 97.7 73 22 121/67 94 06/15/16 19:16 95 Nasal Cannula 4.00 -: 06/16/16 0335 06/16/16 0335 Microbiology 06/16/16 Aerobic Blood Culture, Received Pending 06/16/16 Anaerobic Blood Culture, Received Pending 06/16/16 Aerobic Blood Culture, Received Pending 06/16/16 Anaerobic Blood Culture, Received Pending Physical Exam General Appearance: Sleeping, Malnourished Ears & Nose Ears & Nose Exam: Nasal Mucosa [place] Neck Neck Exam: Neck Supple Pulmonary Resp Exam: No Distress, Crackles, Rhonchi Cardiology CV Exam: Arrhythmia Gastrointestinal/Abdomen GI Exam: Soft, Bowel Sounds Present, Distended, Bowel Sounds Hypoactive Musculoskeletal MS Exam: Atrophy Integumentary Skin Exam: Warm Extremeties Extremities Exam: Trace Edema Neurologic Neuro Exam: Unresponsive VTE Prophylaxis Device: SCDs Assessment/Plan Assessment Summary: DEAN/Acute Renal Failure, Dehydration, Hypotension, CKD Stage III Problem List: (1) UTI (urinary tract infection) (2) Hypotension (3) Dementia (4) Bacteremia (5) Hypothyroid (6) Hyperglycemia (7) MRSA (methicillin resistant staph aureus) culture positive (8) CKD (chronic kidney disease) (9) Acute renal failure Plan BUN/Creatinine almost same. BP is low, and HR controlled, now on Diltiazem. Blood culture growing MRSA. Continue antibiotics and IVF. HCo3 is low, on NaHco3 via NGT. BP is better, off pressors. Urine out put is much better. No urgent need for Dialysis. Watch for renal improvement. Problem Qualifiers (1) UTI (urinary tract infection): Qualified Code: N39.0 - Urinary tract infection without hematuria, site unspecified (2) Hypotension: Qualified Code: I95.9 - Hypotension, unspecified hypotension type (3) Dementia: Qualified Code: F03.90 - Dementia without behavioral disturbance, unspecified dementia type (4) Hypothyroid: Qualified Code: E03.9 - Hypothyroidism, unspecified type (5) CKD (chronic kidney disease): Qualified Code: N18.9 - CKD (chronic kidney disease), unspecified stage (6) Acute renal failure: Qualified Code: N17.9 - Acute renal failure, unspecified acute renal failure type Dinora Miller MD Jun 16, 2016 18:50
--- NOTE | 2016-06-16 19:37 | HHI.IDPN ---
Subjective Subjective Remarks No improvement neurologically Some UOP picked up afebrile WBC going down High vancomycin level creatinine still aropund 3.6 Antibiotics vancomycin Allergies: Coded Allergies: Bethanechol (Verified Allergy, Severe, 06/12/16) Cipro (Verified Allergy, Unknown, 06/12/16) TOLD BY JUSTUS IRENE *MDRO Multi-Drug Resistant Organism (Verified Adverse Reaction, Unknown, ) MRSA (urine/blood) - 06/12/16 MRSA PCR Screen POSITIVE-06/13/16 Objective . Vital Signs Date Time Temp Pulse Resp B/P Pulse Ox O2 Delivery O2 Flow Rate FiO2 06/16/16 18:00 90 06/16/16 16:00 90 06/16/16 16:00 97.8 90 20 147/72 91 06/16/16 14:00 82 06/16/16 12:00 92 06/16/16 12:00 98.0 86 20 132/62 92 06/16/16 11:54 92 Nasal Cannula 4.00 06/16/16 10:00 83 06/16/16 08:00 80 06/16/16 08:00 97.8 80 20 124/59 91 06/16/16 06:00 68 06/16/16 04:00 98.0 69 19 100/54 95 06/16/16 04:00 69 06/16/16 02:00 83 06/16/16 00:00 79 06/16/16 00:00 97.6 79 23 131/63 95 06/15/16 22:00 79 06/15/16 20:00 73 06/15/16 20:00 97.7 73 22 121/67 94 06/15/16 06/15/16 06/16/16 15:00 23:00 07:00 Intake Total 254 ml 1051 ml 951 ml Output Total 200 ml 250 ml 225 ml Balance 54 ml 801 ml 726 ml Intake Oral 0 ml 0 ml 0 ml IV Total 169 ml 679 ml 565 ml Tube Feeding 25 ml 312 ml 326 ml Other 60 ml 60 ml 60 ml Output Urine Total 200 ml 250 ml 225 ml # Bowel Movements 0 0 0 . Laboratory Tests Test 06/15/16 06/16/16 09:00 03:35 White Blood Count 19.5 TH/MM3 14.3 TH/MM3 Red Blood Count 3.59 MIL/MM3 3.65 MIL/MM3 Hemoglobin 11.3 GM/DL 11.5 GM/DL Hematocrit 34.6 % 34.5 % Mean Corpuscular Volume 96.5 FL 94.7 FL Mean Corpuscular Hemoglobin 31.5 PG 31.4 PG Mean Corpuscular Hemoglobin 32.6 % 33.2 % Concent Red Cell Distribution Width 14.8 % 14.8 % Platelet Count 159 TH/MM3 199 TH/MM3 Mean Platelet Volume 10.1 FL 9.7 FL Neutrophils (%) (Auto) 88.7 % Lymphocytes (%) (Auto) 6.5 % Monocytes (%) (Auto) 4.4 % Eosinophils (%) (Auto) 0.1 % Basophils (%) (Auto) 0.3 % Neutrophils # (Auto) 12.7 TH/MM3 Lymphocytes # (Auto) 0.9 TH/MM3 Monocytes # (Auto) 0.6 TH/MM3 Eosinophils # (Auto) 0.0 TH/MM3 Basophils # (Auto) 0.0 TH/MM3 CBC Comment DIFF FINAL Differential Comment Laboratory Tests Test 06/15/16 06/16/16 09:00 03:35 Sodium Level 144 MEQ/L 145 MEQ/L Potassium Level 3.9 MEQ/L 3.9 MEQ/L Chloride Level 115 MEQ/L 115 MEQ/L Carbon Dioxide Level 14.0 MEQ/L 15.8 MEQ/L Anion Gap 15 MEQ/L 14 MEQ/L Blood Urea Nitrogen 70 MG/DL 81 MG/DL Creatinine 3.56 MG/DL 3.64 MG/DL Estimat Glomerular Filtration 12 ML/MIN 12 ML/MIN Rate Random Glucose 125 MG/DL 158 MG/DL Calcium Level 8.1 MG/DL 8.3 MG/DL Magnesium Level 3.0 MG/DL Microbiology Date/Time Procedure Status Source Growth 06/13/16 21:20 Aerobic Blood Culture - Final Resulted Blood Peripheral S. Aureus Mrsa 06/13/16 21:20 Anaerobic Blood Culture - Preliminary Resulted Blood Peripheral NO GROWTH IN 3 DAYS 06/13/16 21:32 Aerobic Blood Culture - Final Resulted Blood Peripheral S. Aureus Mrsa 06/13/16 21:32 Anaerobic Blood Culture - Preliminary Resulted Blood Peripheral NO GROWTH IN 3 DAYS 06/16/16 03:35 Aerobic Blood Culture Received Blood Peripheral Pending 06/16/16 03:35 Anaerobic Blood Culture Received Blood Peripheral Pending 06/16/16 03:40 Aerobic Blood Culture Received Blood Peripheral Pending 06/16/16 03:40 Anaerobic Blood Culture Received Blood Peripheral Pending Imaging Last Impressions Renal Ultrasound 06/14/16 0000 Signed Impressions: Service Date/Time: Tuesday, June 14, 2016 17:37 - CONCLUSION: 1. Heterogeneous kidneys characteristic of medical renal disease with trace perinephric fluid. No hydronephrosis. Leonard Berg MD Chest X-Ray 06/12/16 0521 Signed Impressions: Service Date/Time: Sunday, June 12, 2016 05:25 - CONCLUSION: Underinflated and rotated examination without an acute finding appreciated. Flavio Boyd MD Physical Exam CONSTITUTIONAL/GENERAL: This is a frail elderly female patient, in no apparent distress. TUBES/LINES/DRAINS: SKIN: No jaundice, rashes, or lesions.. Skin temperature appropriate. Not diaphoretic. Small wound with poor granulations and small amoun t of purulence in RUE HEAD: Atraumatic. Normocephalic. EYES: Pupils equal and round and reactive. Extraocular motions intact. No scleral icterus. No injection or drainage. Fundi not examined. ENT: Oral mucosae drayish. NECK: Trachea midline. Supple, nontender. CARDIOVASCULAR: Regular rate and rhythm without murmurs, gallops, or rubs. No JVD. Peripheral pulses symmetric. RESPIRATORY/CHEST: Symmetric, unlabored respirations. Few scattered rhonchi. GASTROINTESTINAL: Abdomen soft, non-tender, nondistended. No hepato-splenomegaly , or palpable masses. No guarding. Bowel sounds present. GENITOURINARY: Without palpable bladder distension. Bingham catheter in place with very cloudy mud colored urine MUSCULOSKELETAL: Extremities without clubbing, cyanosis, or edema. No joint tenderness or effusion noted. No calf tenderness. No mottling or clubbing. LYMPHATICS: No palpable cervical or supraclavicular adenopathy. NEUROLOGICAL: Obtunded. Not responsive or following commands. PSYCHIATRIC: unable to assess Assessment & Plan Remarks High grade MRSA sepsis with inapparent source ? endocarditis - 2 D echo negative - family declining GABRIEL at least for now Sepsis, probably severe - hypotension - marginal UOP - ARF, anuria ? will need HD Mental status change, not improved with HD improvement ARF Prognosis likely quite poor - dc vancomycin - start daptomycin - fu repeat blood clx - MRI - neurology consult Plans to cont agrresive care with DNR dw RN dw children at b/s Colette Gunter MD Jun 16, 2016 19:37
[2016-06-17] VITALS (8 sets, daily range): BP systolic 114–130; BP diastolic 56–62; PULSE 84–87; RESP 20–42; TEMP 97.2–98.8; O2SAT 90–97
[2016-06-17] MEDS ORDERED: MORPHINE SULFATE 4 MG/ML INJ IV PUSH ONE (01:15)
[2016-06-17] MEDS ORDERED: BUMETANIDE INJ 1 MG/4 ML VIAL IV PUSH ONE (01:15)
[2016-06-17] MEDS: CHLORHEXIDINE GLUCONATE 2 % 1 PACK (2 CLOTHS)(taper/protocol) TOPICAL SCH (04:00)
[2016-06-17 04:21] LABS: AUTOMATED NEUTROPHIL # 13.4 TH/MM3 (1.8-7.7); BASOPHIL % 0.1 % (0.0-2.0); EOSINOPHIL # 0.1 TH/MM3 (0-0.4); EOSINOPHIL % 0.6 % (0.0-4.0); HEMATOCRIT 38.7 % (35.0-46.0); LYMPH % 7.2 % (9.0-44.0); LYMPHOCYTE # 1.1 TH/MM3 (1.0-4.8); MEAN CELL VOLUME 94.9 FL (80.0-100.0); MEAN CORPUSCULAR HEMOGLOBIN 31.8 PG (27.0-34.0); MEAN CORPUSCULAR HGB CONC 33.6 % (32.0-36.0); MONO % 2.7 % (0.0-8.0); NEUT % 89.4 % (16.0-70.0); PLATELET COUNT 272 TH/MM3 (150-450); RED BLOOD COUNT 4.08 MIL/MM3 (4.00-5.30); RED CELL DISTRIBUTION WIDTH 15.1 % (11.6-17.2)
[2016-06-17 04:30] LABS: HEMO FLAGS AUTO DIFF
[2016-06-17 04:38] LABS: POTASSIUM 3.9 MEQ/L (3.5-5.1)
[2016-06-17] MEDS: LEVOTHYROXINE SODIUM 100 MCG TAB PO SCH (06:00)
[2016-06-17] MEDS: SODIUM BICARBONATE 650 MG TAB PO SCH ×2 (06:00→13:28)
[2016-06-17] MEDS: HEPARIN SODIUM - SQ 10,000 UNITS/ML VIAL SQ SCH (06:05)
[2016-06-17 07:03] LABS: SCAN/DIFF AUTO DIFF CONFIRMED
[2016-06-17] MEDS: OXcarbazepine 300 MG TAB PO SCH (08:22)
[2016-06-17] MEDS: SODIUM CHLORIDE 0.9% FLUSH 10 ML FLUSH IV FLUSH SCH (08:22)
[2016-06-17] MEDS: AMIODARONE 200 MG TAB PO SCH (08:22)
[2016-06-17] MEDS: CALCIUM/VITAMIN D 250 MG/125 U TAB PO SCH (08:22)
[2016-06-17] MEDS: MULTIVITAMIN TAB PO SCH (08:22)
[2016-06-17] MEDS: predniSONE 20 MG TAB PO SCH (08:22)
[2016-06-17] MEDS: LACTIC ACID (AMMONIUM LACTATE) 12% LOTION 225 GM BTL TOPICAL SCH (08:23)
[2016-06-17] MEDS ORDERED: DAPTOmycin INJ 500 MG in SODIUM CHLORIDE 0.9% INJ 100 ML IV SCH (09:00)
--- NOTE | 2016-06-17 09:51 | HHI.HCPN ---
Reason for visit a. To assist with evaluation and management of symptoms including: weakness , confusion, malnutrition. b. To assist medical decision maker(s) with: better understanding of current medical conditions; weighing benefits/burdens of medical treatment options; making medical treatment decisions. . Subjective/Interval History Patient and examined in ICU. Discussed with daughter Zaida Oseguera and Dr. Ribera. Patient condition is declining with worsening renal function, no neurologic improvement and increasing oxygen needs. MRI cancelled per family request. Daughter has decided to transition to comfort measures with hospice support. Interested in [facility] placement. Patient remains unresponsive, off sedation. Afebrile. Blood pressure 114/56. Now on oxygen via non-rebreather. WBC 15. Creatinine increased to 3.91. No new imaging. Repeat blood cultures 06/16/16 with gram positive cocci, prior cultures MRSA. . Family/friend interactions See interval note. . Advance Directives Living Will: Copy in medical record Health Care Surrogate: Copy in medical record Advance Directive Specifics Date completed: 09/13/1998 . Health Care Surrogate(s): Designated Health care power of civil rights attorney is daughter, Zaida Silvestre. . Documented care wishes: "take into account my preference for a quality of life and my preference that I not continue to live for a prolonged period of time without reasonable prospect of amelioration or recovery time either in a irreversible coma or unconscious state or in a conscious state with severely and irreversibly impaired cognitive faculties, massive paralysis or with severe, uncontrollable pain or suffering , whether physical or psychological... Significant change in goals: NO CODE. Transition to comfort measures with hospice support. Elects [facility]. . Objective Vital Signs Date Time Temp Pulse Resp B/P Pulse Ox O2 Delivery O2 Flow Rate FiO2 06/17/16 06:00 86 06/17/16 04:00 98.8 87 25 130/60 97 06/17/16 04:00 87 06/17/16 02:00 85 06/17/16 01:28 95 Non-Rebreather 15.00 100 06/17/16 00:00 85 06/17/16 00:00 98.0 85 22 121/62 90 06/16/16 22:00 90 06/16/16 20:00 97.5 88 24 130/65 92 06/16/16 20:00 88 06/16/16 18:00 90 06/16/16 16:00 90 06/16/16 16:00 97.8 90 20 147/72 91 06/16/16 14:00 82 06/16/16 12:00 92 06/16/16 12:00 98.0 86 20 132/62 92 06/16/16 11:54 92 Nasal Cannula 4.00 06/16/16 10:00 83 Intake & Output 06/17/16 06/17/16 07:00 19:00 Intake Total 984 ml Output Total 1850 ml 300.0 ml Balance -866 ml -300.0 ml Tube Feeding 864 ml Other 120 ml Output Urine Total 1850 ml Tube Feeding Residual Discard 300.0 ml # Bowel Movements 0 Physical Exam CONSTITUTIONAL/GENERAL: This is an elderly, frail female, critically ill in ICU. TUBES/LINES/DRAINS: NC, NG tube, PIVs, Bingham, SCDs. SKIN: No jaundice, rashes, or lesions. Ecchymoses on upper extremities. No wounds seen anteriorly. Skin temperature appropriate. Not diaphoretic. EYES: Eyes closed. Does not open eyes to voice, exam or noxious stimuli. CARDIOVASCULAR: Regular rate and rhythm without murmurs, gallops, or rubs. RESPIRATORY/CHEST: Symmetric, unlabored respirations. Course breath sounds bilaterally. GASTROINTESTINAL: Abdomen soft, non-tender, nondistended. No guarding. Bowel sounds hypoactive. GENITOURINARY: Without palpable bladder distension. Bingham catheter in place. MUSCULOSKELETAL: Extremities without clubbing, cyanosis, or edema. No mottling or clubbing. NEUROLOGICAL: Does not awaken to voice or exam. PSYCHIATRIC: Does not awaken to voice or exam. . Diagnostic Tests Laboratory Laboratory Tests Test 06/14/16 06/14/16 06/15/16 06/15/16 10:05 10:40 04:47 09:00 Urine Color LIGHT-RED (YELLW/STRAW) Urine Turbidity HAZY (CLEAR) Urine pH 5.5 (5.0-8.5) Urine Specific [place] 1.015 (1.002-1.035) Urine Protein 100 mg/dL (NEG-TRACE) Urine Glucose (UA) NEG mg/dL (NEG) Urine Ketones TRACE mg/dL (NEG) Urine Occult Blood LARGE (NEG) Urine Nitrite NEG (NEG) Urine Bilirubin NEG (NEG) Urine Urobilinogen LESS THAN 2.0 MG/DL (LESS THAN 2.0) Urine Leukocyte Esterase SMALL (NEG) Urine RBC /hpf (0-3) Urine WBC /hpf (0-5) Urine WBC Clumps MANY (NONE) Urine Bacteria RARE /hpf (NONE) Urine Eosinophils NONE SEEN /HPF (NONE SEEN) Urine Random Creatinine 83.2 MG/DL Urine Random Sodium 43 MEQ/L Sodium Level 145 MEQ/L 144 MEQ/L (136-145) (136-145) Potassium Level 3.5 MEQ/L 3.9 MEQ/L (3.5-5.1) (3.5-5.1) Chloride Level 119 MEQ/L 115 MEQ/L (98-107) (98-107) Carbon Dioxide Level 13.7 MEQ/L 14.0 MEQ/L (21.0-32.0) (21.0-32.0) Anion Gap 12 MEQ/L (5-15) 15 MEQ/L (5-15) Blood Urea Nitrogen 63 MG/DL (7-18) 70 MG/DL (7-18) Creatinine 3.61 MG/DL 3.56 MG/DL (0.50-1.00) (0.50-1.00) Estimat Glomerular Filtration 12 ML/MIN (>89) 12 ML/MIN (>89) Rate Random Glucose 111 MG/DL 125 MG/DL (74-106) (74-106) Calcium Level 7.4 MG/DL 8.1 MG/DL (8.5-10.1) (8.5-10.1) Protein Corrected Calcium 8.3 MG/DL (8.5-10.1) Total Protein 5.5 GM/DL (6.4-8.2) Random Vancomycin Level 11.6 COMMENT 24.3 COMMENT White Blood Count 19.5 TH/MM3 (4.0-11.0) Red Blood Count 3.59 MIL/MM3 (4.00-5.30) Hemoglobin 11.3 GM/DL (11.6-15.3) Hematocrit 34.6 % (35.0-46.0) Mean Corpuscular Volume 96.5 FL (80.0-100.0) Mean Corpuscular Hemoglobin 31.5 PG (27.0-34.0) Mean Corpuscular Hemoglobin 32.6 % Concent (32.0-36.0) Red Cell Distribution Width 14.8 % (11.6-17.2) Platelet Count 159 TH/MM3 (150-450) Mean Platelet Volume 10.1 FL (7.0-11.0) Magnesium Level 3.0 MG/DL (1.5-2.5) Test 06/16/16 06/17/16 03:35 03:36 White Blood Count 14.3 TH/MM3 15.0 TH/MM3 (4.0-11.0) (4.0-11.0) Red Blood Count 3.65 MIL/MM3 4.08 MIL/MM3 (4.00-5.30) (4.00-5.30) Hemoglobin 11.5 GM/DL 13.0 GM/DL (11.6-15.3) (11.6-15.3) Hematocrit 34.5 % 38.7 % (35.0-46.0) (35.0-46.0) Mean Corpuscular Volume 94.7 FL 94.9 FL (80.0-100.0) (80.0-100.0) Mean Corpuscular Hemoglobin 31.4 PG 31.8 PG (27.0-34.0) (27.0-34.0) Mean Corpuscular Hemoglobin 33.2 % 33.6 % Concent (32.0-36.0) (32.0-36.0) Red Cell Distribution Width 14.8 % 15.1 % (11.6-17.2) (11.6-17.2) Platelet Count 199 TH/MM3 272 TH/MM3 (150-450) (150-450) Mean Platelet Volume 9.7 FL 9.4 FL (7.0-11.0) (7.0-11.0) Neutrophils (%) (Auto) 88.7 % 89.4 % (16.0-70.0) (16.0-70.0) Lymphocytes (%) (Auto) 6.5 % 7.2 % (9.0-44.0) (9.0-44.0) Monocytes (%) (Auto) 4.4 % (0.0-8.0) 2.7 % (0.0-8.0) Eosinophils (%) (Auto) 0.1 % (0.0-4.0) 0.6 % (0.0-4.0) Basophils (%) (Auto) 0.3 % (0.0-2.0) 0.1 % (0.0-2.0) Neutrophils # (Auto) 12.7 TH/MM3 13.4 TH/MM3 (1.8-7.7) (1.8-7.7) Lymphocytes # (Auto) 0.9 TH/MM3 1.1 TH/MM3 (1.0-4.8) (1.0-4.8) Monocytes # (Auto) 0.6 TH/MM3 0.4 TH/MM3 (0-0.9) (0-0.9) Eosinophils # (Auto) 0.0 TH/MM3 0.1 TH/MM3 (0-0.4) (0-0.4) Basophils # (Auto) 0.0 TH/MM3 0.0 TH/MM3 (0-0.2) (0-0.2) CBC Comment DIFF FINAL AUTO DIFF Differential Comment AUTO DIFF CONFIRMED Sodium Level 145 MEQ/L 146 MEQ/L (136-145) (136-145) Potassium Level 3.9 MEQ/L 3.9 MEQ/L (3.5-5.1) (3.5-5.1) Chloride Level 115 MEQ/L 111 MEQ/L (98-107) (98-107) Carbon Dioxide Level 15.8 MEQ/L 23.0 MEQ/L (21.0-32.0) (21.0-32.0) Anion Gap 14 MEQ/L (5-15) 12 MEQ/L (5-15) Blood Urea Nitrogen 81 MG/DL (7-18) 90 MG/DL (7-18) Creatinine 3.64 MG/DL 3.91 MG/DL (0.50-1.00) (0.50-1.00) Estimat Glomerular Filtration 12 ML/MIN (>89) 11 ML/MIN (>89) Rate Random Glucose 158 MG/DL 164 MG/DL (74-106) (74-106) Calcium Level 8.3 MG/DL 8.7 MG/DL (8.5-10.1) (8.5-10.1) Random Vancomycin Level 23.0 COMMENT Result Diagram: 06/17/16 0336 06/17/16 0336 Microbiology Microbiology Date/Time Procedure Status Source Growth 06/16/16 03:35 Aerobic Blood Culture - Preliminary Resulted Blood Peripheral Gram Positive Cocci 06/16/16 03:35 Anaerobic Blood Culture Resulted Blood Peripheral Pending 06/16/16 03:40 Aerobic Blood Culture - Preliminary Resulted Blood Peripheral Gram Positive Cocci 06/16/16 03:40 Anaerobic Blood Culture Resulted Blood Peripheral Pending . Imaging Last Impressions Renal Ultrasound 06/14/16 0000 Signed Impressions: Service Date/Time: Tuesday, June 14, 2016 17:37 - CONCLUSION: 1. Heterogeneous kidneys characteristic of medical renal disease with trace perinephric fluid. No hydronephrosis. Leonard Berg MD Chest X-Ray 06/12/16 0521 Signed Impressions: Service Date/Time: Sunday, June 12, 2016 05:25 - CONCLUSION: Underinflated and rotated examination without an acute finding appreciated. Flavio Boyd MD . Assessment and Plan Disease Oriented Problem List: (1) MRSA (methicillin resistant staph aureus) culture positive Comment: blood, urine and nasal swab (2) Sepsis (3) UTI (urinary tract infection) (4) CKD (chronic kidney disease) (5) Hypothyroid (6) Hyperglycemia (7) Hypotension (8) Dementia (9) Acute renal failure Symptom Scale: (1) Weakness 0-10 Scale: Unable to quantify (2) Malnutrition 0-10 Scale: Unable to quantify Comment: Protein 5.5. (3) Lethargy 0-10 Scale: Unable to quantify Pertinent Non-Medical Issues Psychosocial: . Has 1 daughter and 3 sons. Spiritual:[employer]. Legal: Living Will and Health Care Power of Commodity Broker scanned into EMR and copy on chart. Patient is incapacitated and will not regain capacity. DaughterZaida is designated HC POA. Ethical issues impacting care: No known concerns. . Important Contacts * Zaida Auguste), daughter /HCPOA: [phone] Prognosis Given advanced age, worsening dementia, declining cognitive, functional and nutritional status prior to admission overall prognosis is poor. Hospice appropriate if goals are comfort oriented. . Code Status: No Code Plan * Living Will and Health Care Power of Commodity Broker scanned into EMR and copy on chart. Patient is incapacitated and will not regain capacity. DaughterZaida is designated HC POA. * NO CODE * Palliative care meeting: Met with daughter (Zaida Oseguera/HC-POA) and Dr. Ribera. Patient continues to decline despite aggressive care, now with increasing oxygen needs, worsening renal function and no evidence of neurologic recovery. Daughter declines MRI brain. Elects transition to comfort measures with hospice support. Interested in [facility] placement if possible. * Corporation Officer requested and has visited. * SYMPTOMS: Weakness: due to underlying dementia, advanced age and acute UTI/ sepsis. Bed to WC bound at baseline. Lethargy: due to underlying dementia, advanced age and acute UTI/sepsis. Family hopeful this will improve with treatment of UTI. Malnutrition: Protein 5.5. NG placed for artificial feedings. Will monitor. * Palliative care will continue to follow to assist with symptom management and clarification of treatment goals as needed. . Time Spent Total Floor Time (mins): 60 Face to Face Time (mins): 45 >50% Counseling/Coord of Care: Yes Attestation To help prompt me to consider important information that might be impacting today's encounter and assessment, information from prior notes written by myself or my colleagues may have been "brought forward" into today's note. My signature on this note, however, is an attestation that I personally performed the exam, history, and/or decision-making noted today, and, unless otherwise indicated, the interactions with patient, family, and staff as well as the review of records all occurred today. I also attest that the listed assessment and stated plan reflect my best clinical judgment today based on the combination of historical information, prior notes, and today's exam/ interactions. When time spent is documented, it refers only to time spent today by the signer, or if indicated, combined time spent today by collaborating physician/nurse practitioner. RITESH BARNHART Jun 17, 2016 09:51
--- NOTE | 2016-06-17 10:20 | HHI.NPPN ---
Subjective General Problems: Anemia, Hypotension, Mebatolic Acidosis Renal Failure: Chronic, Acute, Stage III History of Present Illness 85-year-old female with past medical history of Alzheimer's disease, history of hypertension, hyperlipidemia, underlying dementia, hypothyroidism, chronic kidney disease, anxiety and depression who was brought to the hospital because of altered mental status. I was called to see the patient because of elevated BUN and creatinine. The patient has history of chronic kidney disease and her baseline creatinine has been in the range of 1.1 to 1.3 and this was in 2013 and 2014, and now she came in with a creatinine of 2.2. Additional Remarks Patient develop SOB and now with VM. Review of Systems General General Remarks Cannot be taken. Objective Data Data 06/16/16 06/17/16 19:00 07:00 Intake Total 503 ml 984 ml Output Total 2300 ml 1850 ml Balance -1797 ml -866 ml Intake Oral 0 ml IV Total 0 ml Tube Feeding 383 ml 864 ml Other 120 ml 120 ml Output Urine Total 2300 ml 1850 ml # Bowel Movements 0 Vital Signs Date Time Temp Pulse Resp B/P Pulse Ox O2 Delivery O2 Flow Rate FiO2 06/17/16 08:00 97.2 85 42 114/56 96 06/17/16 08:00 85 06/17/16 06:00 86 06/17/16 04:00 98.8 87 25 130/60 97 06/17/16 04:00 87 06/17/16 02:00 85 06/17/16 01:28 95 Non-Rebreather 15.00 100 06/17/16 00:00 85 06/17/16 00:00 98.0 85 22 121/62 90 06/16/16 22:00 90 06/16/16 20:00 97.5 88 24 130/65 92 06/16/16 20:00 88 06/16/16 18:00 90 06/16/16 16:00 90 06/16/16 16:00 97.8 90 20 147/72 91 06/16/16 14:00 82 06/16/16 12:00 92 06/16/16 12:00 98.0 86 20 132/62 92 06/16/16 11:54 92 Nasal Cannula 4.00 -: 06/17/16 0336 06/17/16 0336 Physical Exam General Appearance: Sleeping, Malnourished Ears & Nose Ears & Nose Exam: Nasal Mucosa [place] Neck Neck Exam: Neck Supple Pulmonary Resp Exam: No Distress, Crackles, Rhonchi Cardiology CV Exam: Arrhythmia Gastrointestinal/Abdomen GI Exam: Soft, Bowel Sounds Present, Distended, Bowel Sounds Hypoactive Musculoskeletal MS Exam: Atrophy Integumentary Skin Exam: Warm Extremeties Extremities Exam: Trace Edema Neurologic Neuro Exam: Unresponsive VTE Prophylaxis Device: SCDs Assessment/Plan Assessment Summary: DEAN/Acute Renal Failure, Dehydration, Hypotension, CKD Stage III Problem List: (1) UTI (urinary tract infection) (2) Hypotension (3) Dementia (4) Bacteremia (5) Hypothyroid (6) Hyperglycemia (7) MRSA (methicillin resistant staph aureus) culture positive (8) CKD (chronic kidney disease) (9) Acute renal failure Plan BUN/Creatinine almost same. BP is low, and HR controlled. Blood culture growing MRSA. Continue antibiotics and IVF. HCo3 is low, on NaHco3 via NGT. BP is better, off pressors. Urine out put improved after diuretics. Increase in Creatinine due to diuretics. Now Hospice has consulted. Follow the urine out put and diuretics as needed. Problem Qualifiers (1) UTI (urinary tract infection): Qualified Code: N39.0 - Urinary tract infection without hematuria, site unspecified (2) Hypotension: Qualified Code: I95.9 - Hypotension, unspecified hypotension type (3) Dementia: Qualified Code: F03.90 - Dementia without behavioral disturbance, unspecified dementia type (4) Hypothyroid: Qualified Code: E03.9 - Hypothyroidism, unspecified type (5) CKD (chronic kidney disease): Qualified Code: N18.9 - CKD (chronic kidney disease), unspecified stage (6) Acute renal failure: Qualified Code: N17.9 - Acute renal failure, unspecified acute renal failure type Dinora Miller MD Jun 17, 2016 10:20
--- NOTE | 2016-06-17 11:17 | HHI.DS ---
Discharge Summary Admission Date Jun 12, 2016 at 06:42 Admitting Diagnosis Sepsis (UTI); DEAN (1) Sepsis ICD Code: A41.9 Diagnosis: Principal (2) Acute renal failure ICD Code: N17.9 Diagnosis: Principal (3) Dehydration ICD Code: E86.0 Diagnosis: Principal (4) Dementia ICD Code: F03.90 Diagnosis: Secondary (5) MRSA (methicillin resistant staph aureus) culture positive ICD Code: Z22.322 Diagnosis: Principal (6) Bacteremia ICD Code: R78.81 Diagnosis: Principal (7) Hypotension ICD Code: I95.9 Diagnosis: Principal (8) UTI (urinary tract infection) ICD Code: N39.0 Diagnosis: Principal (9) Hyperglycemia ICD Code: R73.9 Diagnosis: Secondary (10) Hypothyroid ICD Code: E03.9 Diagnosis: Secondary (11) CKD (chronic kidney disease) ICD Code: N18.9 Diagnosis: Secondary Brief History 85-year-old female who is a resident of a [facility] due to advanced dementia was brought by EMS for lethargy and unresponsiveness. She was originally admitted to medical floor however developed low blood pressure and tachycardia and now she is transferred to ICU. Patient is lethargic and unable to provide any history or information is received from the chart and interviewing patient' s daughter. Per daughter's statement the patient was difficult to arouse the morning prior admission. Normally she is quite active and around 4:30 in the morning she is usually rolling around on her wheelchair and ready to eat toast for breakfast. The daughter states it is been this way lethargic and barely arousable for about a week or more. Patient was also recently started on Gabapentin and daughter questions if it may have induced AMS. CBC/BMP: 06/17/16 0336 06/17/16 0336 Significant Findings Laboratory Tests Test 06/15/16 06/16/16 06/17/16 09:00 03:35 03:36 White Blood Count 19.5 TH/MM3 14.3 TH/MM3 15.0 TH/MM3 (4.0-11.0) (4.0-11.0) (4.0-11.0) Red Blood Count 3.59 MIL/MM3 3.65 MIL/MM3 (4.00-5.30) (4.00-5.30) Hemoglobin 11.3 GM/DL 11.5 GM/DL (11.6-15.3) (11.6-15.3) Hematocrit 34.6 % 34.5 % (35.0-46.0) (35.0-46.0) Chloride Level 115 MEQ/L 115 MEQ/L 111 MEQ/L (98-107) (98-107) (98-107) Carbon Dioxide Level 14.0 MEQ/L 15.8 MEQ/L (21.0-32.0) (21.0-32.0) Blood Urea Nitrogen 70 MG/DL (7-18) 81 MG/DL (7-18) 90 MG/DL (7-18) Creatinine 3.56 MG/DL 3.64 MG/DL 3.91 MG/DL (0.50-1.00) (0.50-1.00) (0.50-1.00) Estimat Glomerular Filtration 12 ML/MIN (>89) 12 ML/MIN (>89) 11 ML/MIN (>89) Rate Random Glucose 125 MG/DL 158 MG/DL 164 MG/DL (74-106) (74-106) (74-106) Calcium Level 8.1 MG/DL 8.3 MG/DL (8.5-10.1) (8.5-10.1) Magnesium Level 3.0 MG/DL (1.5-2.5) Neutrophils (%) (Auto) 88.7 % 89.4 % (16.0-70.0) (16.0-70.0) Lymphocytes (%) (Auto) 6.5 % 7.2 % (9.0-44.0) (9.0-44.0) Neutrophils # (Auto) 12.7 TH/MM3 13.4 TH/MM3 (1.8-7.7) (1.8-7.7) Lymphocytes # (Auto) 0.9 TH/MM3 (1.0-4.8) Sodium Level 146 MEQ/L (136-145) PE at Discharge gen: elderly female, moderate respiratory distress, obtunded, lying in bed on partial non-rebreather heent: mucous membranes dry. perrl. neck: no jvd. trachea midline chest: tachypneic. bilateral coarse rales cv: normal rate, regular rhythm abd: soft, nontender, nondistended. extr: 1+ edema. gu: gaytan with clear yellow urine neuro: RASS -4. does not follow commands. withdraws to pain. Hospital Course Hospital Course: 85-year-old female who is a resident of a [facility] due to advanced dementia was brought by EMS for lethargy and unresponsiveness. She was originally admitted to medical floor however developed low blood pressure and tachycardia and now she is transferred to ICU. Patient is lethargic and unable to provide any history or information is received from the chart and interviewing patient' s daughter. Per daughter's statement the patient was difficult to arouse the morning prior admission. Normally she is quite active and around 4:30 in the morning she is usually rolling around on her wheelchair and ready to eat toast for breakfast. The daughter states it is been this way lethargic and barely arousable for about a week or more. Patient was also recently started on Gabapentin and daughter questions if it may have induced AMS. Subjective: 4/3: clinically improving today. back in sinus rhythm. afebrile. vanc trough therapeutic today. mental status still altered. family wants to consider hospice care. will consult palliative to discuss goals of care, but patient from this acute illness is clinically improving. 4/4: clinically worse this morning. in moderate respiratory distress. bilateral lung crackles. echo with severe TR and very dilated IVC from yesterday. clinically very volume overloaded. Cr not improved and remains oliguric. at this point since she is DNR/DNI, we must try and convert her to non-oliguric renal failure to prevent respiratory failure. repeat blood cultures pending. echo without evidence of endocarditis. Despite mild improvements yesterday, she is much worse today. labored breathing , Cr worse, hypoxic. still not waking up and encephalopathic. Decision was made by the family to pursue hospice. Hospice accepted the patient and she will be transferred to the hospice care center. I have spent in excess of 30 minutes evaluating the patient, reviewing the medical record, discussions with family and consultants, and coordination of her care in discharging the patient to her hospice facility. Pt Condition on Discharge: Deteriorating Discharge Disposition: Hospice/Med Facility Discharge Instructions DIET: Follow Instructions for: As Tolerated, No Restrictions Activities you can perform: Regular-No Restrictions Mark Ribera MD Jun 17, 2016 11:17
== END 2016-06-17 13:45 | disposition hospice, inpatient (51) | DRG 871 ==
LOC: NEPE 04:56 → NEDA 06:42 → NEDH 11:38 → N07A 14:08 → HIMW 06-13 22:45
PROVIDERS: ADMIT Specialist; ATTEND Specialist
DX: A41.02 Sepsis due to Methicillin resistant Staphylococcus aureus (principal); N17.0 Acute kidney failure with tubular necrosis; J96.01 Acute respiratory failure with hypoxia; R65.21 Severe sepsis with septic shock; G93.41 Metabolic encephalopathy; E87.2 Acidosis; I48.91 Unspecified atrial fibrillation; E46 Unspecified protein-calorie malnutrition; I12.9 Hypertensive chronic kidney disease with stage 1 through stage 4 chronic kidney disease, or unspecified chronic kidney disease; N39.0 Urinary tract infection, site not specified; G30.9 Alzheimer's disease, unspecified; F02.80 Dementia in other diseases classified elsewhere, unspecified severity, without behavioral disturbance, psychotic disturbance, mood disturbance, and anxiety; E87.70 Fluid overload, unspecified; E86.0 Dehydration; F32.9 Major depressive disorder, single episode, unspecified; Z66 Do not resuscitate; F41.9 Anxiety disorder, unspecified; E03.9 Hypothyroidism, unspecified; E78.5 Hyperlipidemia, unspecified; M19.90 Unspecified osteoarthritis, unspecified site; I25.10 Atherosclerotic heart disease of native coronary artery without angina pectoris; R73.9 Hyperglycemia, unspecified; B95.62 Methicillin resistant Staphylococcus aureus infection as the cause of diseases classified elsewhere; K59.00 Constipation, unspecified; N18.3 Chronic kidney disease, stage 3 (moderate); Z51.5 Encounter for palliative care
CPT/HCPCS: 36600; 71010; 76775; 80048; 80202; 81001; 82140; 82570; 82805; 83735; 84155; 84300; 85007; 85025; 85027; 86403; 87040; 87086; 87147; 87186; 87205; 87641; 93306; 96374; J0282; J0456; J0692; J0696; J0878; J1644; J1940; J2250; J2270; J3010; J3370; J3475; J3480; J7030; J7040; J7050; J7060; J7070; J7512